=== PATIENT | male | born 1945 | race Caucasian/White ===

== ENCOUNTER 2016-09-13 12:04 | Inpatient (IN) | payer MEDICARE, OTHER ==
[2016-09-13 13:56] VITALS: BMI 25.9
--- NOTE | 2016-09-13 14:38 | HP ---
CIWA Score - CIWA Score Nausea/Vomitin Muscle Tremors: 2 Anxiety: 3 Agitation: 3 Paroxysmal Sweats: 3 Orientation: 0-Oriented Tacttile Disturbances: 2-Mild Itch/Numbness/Burn Auditory Disturbances: 0-None Visual Disturbances: 0-None Headache: 1-Very Mild CIWA-Ar Total Score: 17 Admission ROS BHS - HPI Chief Complaint: I need help to stop using benzos Allergies/Adverse Reactions: Allergies Allergy/AdvReac Type Severity Reaction Status Date / Time penicillin G Allergy Severe Rash Verified 09/13/16 14:12 phenytoin sodium Allergy Mild Verified 09/13/16 14:12 [From Dilantin] phenytoin sodium extended Allergy Mild Verified 09/13/16 14:12 [From Dilantin] History of Present Illness: 71 y/o m pt on MMTP , dependent on benzos seeking detox. Exam Limitations: No Limitations - Ebola screening Have you traveled outside of the country in the last 21 days: No Have you had contact with anyone from an Ebola affected area: No Have you been sick,other than usual withdrawal symptoms: No Do you have a fever: No - Review of Systems Constitutional: Malaise, Changes in sleep, Weakness EENT: reports: Nose Congestion, Dental Problems (edentulous) Respiratory: reports: No Symptoms reported Cardiac: reports: No Symptoms Reported GI: reports: Nausea, Indigestion : reports: No Symptoms Reported Musculoskeletal: reports: Joint Pain (rt knee abrasions), Muscle Weakness Integumentary: reports: No Symptoms Reported Neuro: reports: Seizure Endocrine: reports: No Symptoms Reported Hematology: reports: No Symptoms Reported Psychiatric: reports: Agitated, Anxious, Depressed Other Systems: Reviewed and Negative Patient History - Patient Medical History Hx Anemia: No Hx Asthma: No Hx Chronic Obstructive Pulmonary Disease (COPD): No Hx Cancer: No Hx Cardiac Disorders: No Hx Congestive Heart Failure: No Hx Hypertension: No Hx Hypercholesterolemia: No Hx Pacemaker: No HX Cerebrovascular Accident: No Hx Seizures: Yes (Pt states his last seizure was 2 months ago.) Hx Dementia: No Hx Diabetes: No Hx Gastrointestinal Disorders: No Hx Liver Disease: No Hx Genitourinary Disorders: No Hx Sexually Transmitted Disorders: No Hx Renal Disease (ESRD): No Hx Thyroid Disease: No Hx Human Immunodeficiency Virus (HIV): No (september 2011- negative) Hx Hepatitis C: Yes Hx Depression: Yes Hx Suicide Attempt: Yes (tried to cut himself in 2011) Hx Bipolar Disorder: Yes Hx Schizophrenia: No - Patient Surgical History Past Surgical History: Yes Hx Neurologic Surgery: No Hx Cataract Extraction: No Hx Cardiac Surgery: No Hx Lung Surgery: No Hx Breast Surgery: No Hx Breast Biopsy: No Hx Abdominal Surgery: Yes (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) Hx Appendectomy: No Hx Cholecystectomy: No Hx Genitourinary Surgery: No Hx Section: No Hx Orthopedic Surgery: No Hx Hysterectomy: No Anesthesia Reaction: No - PPD History Previous Implant?: Yes Documented Results: Positive w/proof Implanted On Prior [facility] Admission?: No - Reproductive History Patient is a Female of Child Bearing Age (11 -55 yrs old): No - Smoking Cessation Smoking history: Current every day smoker Have you smoked in the past 12 months: Yes Aproximately how many cigarettes per day: 15 Cigars Per Day: 0 Hx Chewing Tobacco Use: No Initiated information on smoking cessation: Yes 'Breaking Loose' booklet given: 09/13/16 - Substance & Tx. History Hx Alcohol Use: No Hx Substance Use: No Substance Use Type: Tranquilizers Hx Substance Use Treatment: Yes - Substances Abused Benzodiazepine (Klonopin) Route: Oral Frequency: Daily Amount used: 12MG Age of first use: 24 Date of Last Use: 09/13/16 Family Disease History - Family Disease History Family Disease History: Diabetes: Father (heroin dependence ), Other: Father, Mother (alcohol dependence ), Sister (OVERDOSE) Admission Physical Exam BHS - Vital Signs Vital Signs: Vital Signs - 24 hr 09/13/16 13:34 Temperature 97.1 F L Pulse Rate 60 Respiratory 20 Rate Blood Pressure 125/63 - Physical General Appearance: Yes: Disheveled, Irritable, Anxious HEENTM: Yes: EOMI, Hearing grossly Normal, Normocephalic, Normal Voice, JAVIER, Nasal Congestion, Other (deviated septum to left) Respiratory: Yes: Chest Non-Tender, Lungs Clear, Normal Breath Sounds, No Respiratory Distress Neck: Yes: Supple Breast: Yes: Within Normal Limits Cardiology: Yes: Regular Rhythm, Regular Rate, S1, S2 Abdominal: Yes: Non Tender, Flat, Soft, Increased Bowel Sounds, Spleenomegaly ( 2nd to trauma), Surgical Scar (well healed midline sca) Genitourinary: Yes: Within Normal Limits Back: Yes: Decreased Range of Motion Musculoskeletal: Yes: Joint Stiffness, Joint swelling (abrasions rt knee), Other (multiple abrasions rt knee) Extremities: Yes: Within Normal Limits Neurological: Yes: supervisor correspondence section II-XII NML intact, Fully Oriented, Alert, Motor Strength 5/5, Normal Response Integumentary: Yes: Moist, Track Crews (old) Lymphatic: Yes: Within Normal Limits - Diagnostic (1) Sedative, hypnotic or anxiolytic dependence, uncomplicated Current Visit: Yes Status: Chronic Comment: SEIZURE RELATED WITHDRAWAL (2) Frequent falls Current Visit: Yes Status: Chronic Comment: pt fell today on knees has abrasion to rt knee but at present aox3 ambulating . (3) Methadone maintenance therapy patient Current Visit: Yes Status: Chronic Comment: 180 MG VERIFICATION PENDING (4) Nicotine dependence Current Visit: Yes Status: Chronic Qualifiers: Nicotine product type: cigarettes Substance use status: uncomplicated Qualified Code(s): F17.210 - Nicotine dependence, cigarettes, uncomplicated Comment: . (5) Bipolar 1 disorder, depressed Current Visit: Yes Status: Chronic Cleared for Admission [facility] - Detox or Rehab [facility] Level of Care: Medically Managed Detox Regimen/Protocol: Valium [facility] Breath Alcohol Content Breath Alcohol Content: 0 Urine Drug Screen - Results Drug Screen Negative: No Urine Drug Screen Results: BZO-Benzodiazepines, MTD-Methadone, TCA-Tricyclic Antidepress
[2016-09-13] MEDS ORDERED: MENTHOL/PHENOL 1 EACH UD MM PRN (14:55)
[2016-09-13] MEDS ORDERED: ACETAMINOPHEN 325 MG TABLET (FP) PO PRN (14:55)
[2016-09-13] MEDS ORDERED: P-EPHED 60MG/TRIPROLIDI 2.5MG TABLET PO PRN (14:55)
[2016-09-13] MEDS ORDERED: MAG HYDROX/AL HYDROX/SIMETH 30 ML UNIT-DOSE CUP PO PRN (14:55)
[2016-09-13] MEDS ORDERED: LOPERAMIDE HCL 2 MG CAPSULE PO PRN (14:55)
[2016-09-13] MEDS ORDERED: hydrOXYzine PAMOATE 25 MG CAPSULE (FP) PO PRN (14:55)
[2016-09-13] MEDS ORDERED: MAGNESIUM CITRATE 300 ML BOTTLE PO PRN (14:55)
[2016-09-13] MEDS ORDERED: guaiFENesin/D-METHORPHAN HB 10 ML UNIT-DOSE CUPS PO PRN (14:55)
[2016-09-13] MEDS ORDERED: IBUPROFEN 400 MG TABLET (FP) PO PRN (14:55)
[2016-09-13 16:59] LABS: URINE APPEARANCE CLEAR; URINE BILIRUBIN NEGATIVE (NEGATIVE); URINE BLOOD NEGATIVE (NEGATIVE); URINE COLOR YELLOW; URINE GLUCOSE (UA) NEGATIVE (NEGATIVE); URINE KETONE NEGATIVE (NEGATIVE); URINE NITRITE NEGATIVE (NEGATIVE); URINE PROTEIN NEGATIVE (NEGATIVE); URINE UROBILINOGEN 2.0 E.U/dl E.U./dl (0.2-1.0)
[2016-09-13 17:00] LABS: URINE LEUK ESTERASE TRACE (NEGATIVE)
[2016-09-13 17:05] LABS: URINE MUCUS RARE; URINE RBC <1 /hpf (0-3); URINE WBC 4 /hpf (3-5)
[2016-09-13] MEDS ORDERED: diazePAM 5 MG TABLET PO ONE (17:45)
--- NOTE | 2016-09-13 18:20 | CONSULT ---
[facility] Psychiatric Consult - Data Date of interview: 09/13/16 Admission source: [facility] Identifying data: Another admission to [facility] for this 71 y/o [place]-Sy[place] male seeking detox treatment on for opioid and benzodiazepine dependence.Patient is ,a father of four,unemployed,domiciled (lives with a cousin in [place]) and supported on SSI benefits. Substance Abuse History: - Smoking Cessation. Smoking history: Current every day smoker. Have you smoked in the past 12 months: Yes. Aproximately how many cigarettes per day: 15. Cigars Per Day: 0. Hx Chewing Tobacco Use: No. Initiated information on smoking cessation: Yes. 'Breaking Loose' booklet given : 09/13/16. - Substance & Tx. History. Hx Alcohol Use: No. Hx Substance Use: No. Substance Use Type: Tranquilizers. Hx Substance Use Treatment: Yes. - Substances Abused. Benzodiazepine (Klonopin). Route: Oral. Frequency: Daily. Amount used: 12MG. Age of first use: 24. Date of Last Use: 09/13/16. Confirmed by patient. 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 Psychiatric History: Past history of psychiatric hospitalizations.Patient is a disorganized,erratic and unreliable historian.Past history of admissions to [facility] and [facility] (years ago).Diagnosed with Anxiety Disorder.Mr Knapp reports that he has always been on benzodiazepines ( klonopin or xanax).Currently on methadone maintenance at the [facility] clinic in [place] (oayr=395 mg/day).He denies history of suicide attempts. Physical/Sexual Abuse/Trauma History: Patient denies. Additional Comment: Urine Drug Screen Results: BZO-Benzodiazepines, MTD- Methadone, TCA-Tricyclic Antidepressants.Noted. Mental Status Exam - Mental Status Exam Alert and Oriented to: Time, Place, Person Cognitive Function: Grossly Intact Patient Appearance: Unkempt (walking wih a stooped posture), Disheveled Mood: Anxious Affect: Mood Congruent Patient Behavior: Fatigued Speech Pattern: Clear (fairly clear) Voice Loudness: Normal Thought Process: Disorganized Thought Disorder: Not Present Hallucinations: Denies Suicidal Ideation: Denies Homicidal Ideation: Denies Insight/Judgement: Poor Sleep: Poorly, Difficulty falling asleep Appetite: Fair Gait/Station: Other (unsteady gait) Psychiatric Findings - Problem List ([place] 1, 2,3) (1) Sedative, hypnotic or anxiolytic dependence, uncomplicated Current Visit: Yes Status: Acute Comment: SEIZURE RELATED WITHDRAWAL (2) Opioid dependence on agonist therapy Current Visit: Yes Status: Acute (3) Nicotine dependence Current Visit: Yes Status: Acute Qualifiers: Nicotine product type: cigarettes Substance use status: uncomplicated Qualified Code(s): F17.210 - Nicotine dependence, cigarettes, uncomplicated Comment: . (4) Substance induced mood disorder Current Visit: Yes Status: Acute (5) Frequent falls Current Visit: Yes Status: Chronic Comment: pt fell today on knees has abrasion to rt knee but at present aox3 ambulating . (6) Kyphosis deformity of spine Current Visit: Yes Status: Chronic Comment: . (7) Lower extremity neuropathy Current Visit: No Status: Chronic Qualifiers: Laterality: bilateral Qualified Code(s): G57.91 - Unspecified mononeuropathy of right lower limb Comment: . (8) Weight loss Current Visit: Yes Status: Chronic (9) Insomnia Current Visit: Yes Status: Chronic - Initial Treatment Plan Initial Treatment Plan: Psychoeducation.Detoxification in progress.Will hold trazodone for now (history of recent falls).Discussed with the patient.He is in agreement with this careplan.Falls precautions.Observation.
[2016-09-13] MEDS: BACITRACIN 0.9 GM PACKET TP SCH (22:35)
[2016-09-13] MEDS: THIAMINE HCL 100 MG TABLET (FP) PO SCH (22:35)
[2016-09-13] MEDS: diazePAM 5 MG TABLET PO SCH (22:36)
[2016-09-14] MEDS: diazePAM 5 MG TABLET PO PRN (02:06)
[2016-09-14] MEDS: diazePAM 5 MG TABLET PO SCH ×3 (05:50→22:23)
[2016-09-14] MEDS: METHADONE HCL 40 MG DISPERSABLE TABLET PO SCH (07:53)
[2016-09-14] MEDS: PRENATAL VITAMINS W/ FOLIC ACID TABLET (FP) PO SCH (09:48)
[2016-09-14] MEDS: NICOTINE 21 MG/24 HOURS TOPICAL PATCH TD SCH (09:48)
[2016-09-14] MEDS: BACITRACIN 0.9 GM PACKET TP SCH ×2 (09:48→22:23)
[2016-09-14] MEDS: ASPIRIN 81 MG CHEWABLE TABLETS PO SCH (09:48)
[2016-09-14 10:03] LABS: MCH 31.5 pg (25.7-33.7); MCHC 33.2 g/dl (32.0-35.9); MEAN CELL VOLUME 94.8 fl (80-96); MEAN PLT VOLUME 10.2 fl (7.5-11.1); PLATELET COUNT 215 K/MM3 (134-434); RDW 13.9 % (11.9-15.9); WHITE BLOOD COUNT 6.8 K/mm3 (4.0-10.0)
--- NOTE | 2016-09-14 10:33 | PN ---
[facility] CIWA - CIWA Score Nausea/Vomitin-No Nausea/No Vomiting Muscle Tremors: 4-Moderate,w/Arms Extend Anxiety: 4-Mod. Anxious/Guarded Agitation: 4-Moderately Restless Paroxysmal Sweats: 1-Minimal Palms Moist Orientation: 0-Oriented Tacttile Disturbances: 3-Moderate Itch/Numb/Burn Auditory Disturbances: 0-None Visual Disturbances: 0-None Headache: 0-None Present CIWA-Ar Total Score: 16 BHS Progress Note (SOAP) Subjective: ANXIETY SWEATS,SLIGHT TREMORS, INTERMITTENT SLEEP. Objective: 09/14/16 10:32 Vital Signs Temperature 95.2 F L 09/14/16 10:02 Pulse Rate 16 L 09/14/16 10:02 Respiratory Rate 54 H 09/14/16 10:02 Blood Pressure 97/61 09/14/16 10:02 O2 Sat by Pulse Oximetry (%) Laboratory Last Values WBC 6.8 K/mm3 (4.0-10.0) 09/14/16 06:00 RBC 4.22 M/mm3 (4.00-5.60) 09/14/16 06:00 Hgb 13.3 GM/dL (11.7-16.9) 09/14/16 06:00 Hct 40.1 % (35.4-49) 09/14/16 06:00 MCV 94.8 fl (80-96) 09/14/16 06:00 MCHC 33.2 g/dl (32.0-35.9) 09/14/16 06:00 RDW 13.9 % (11.9-15.9) 09/14/16 06:00 Plt Count 215 K/MM3 (134-434) 09/14/16 06:00 MPV 10.2 fl (7.5-11.1) 09/14/16 06:00 Sodium 139 mmol/L (136-145) 09/14/16 06:00 Potassium 4.5 mmol/L (3.5-5.1) 09/14/16 06:00 Chloride 104 mmol/L (98-107) 09/14/16 06:00 Urine Color Yellow 09/13/16 14:00 Urine Appearance Clear 09/13/16 14:00 Urine pH 5.0 (5.0-8.0) 09/13/16 14:00 Ur Specific [place] 1.019 (1.001-1.035) 09/13/16 14:00 Urine Protein Negative (NEGATIVE) 09/13/16 14:00 Urine Glucose (UA) Negative (NEGATIVE) 09/13/16 14:00 Urine Ketones Negative (NEGATIVE) 09/13/16 14:00 Urine Blood Negative (NEGATIVE) 09/13/16 14:00 Urine Nitrite Negative (NEGATIVE) 09/13/16 14:00 Urine Bilirubin Negative (NEGATIVE) 09/13/16 14:00 Urine Urobilinogen 2.0 e.u/dl E.U./dl (0.2-1.0) 09/13/16 14:00 Ur Leukocyte Esterase Trace (NEGATIVE) H 09/13/16 14:00 Urine RBC <1 /hpf (0-3) 09/13/16 14:00 Urine WBC 4 /hpf (3-5) 09/13/16 14:00 Ur Epithelial Cells Rare /hpf (FEW) 09/13/16 14:00 Urine Mucus Rare 09/13/16 14:00 LABS/UA NOTED Assessment: 09/14/16 10:32 WITHDRAWAL SX Plan: CONTINUE DETOX REPEAT UA
[2016-09-14 10:42] LABS: ALBUMIN 4.2 g/dl (3.4-5.0); BILIRUBIN,TOTAL 0.6 mg/dL (0.2-1.0); CALCIUM 11.3 mg/dL (8.5-10.1); COCKROFT - GAULT 53.06; CREATININE 1.4 mg/dL (0.7-1.3); TOT PROT 7.5 g/dl (6.4-8.2)
--- NOTE | 2016-09-14 10:44 | PN ---
[facility] Progress Note Note: PT TRIPPED/FELL ON HIS HANDS AND KNEES BY THE [facility] ENTRANCE DO0R YESTERDAY IN AN ATTEMPT TO WALK THROUGH. NO LOC. ALERT O X 3. PT WAS HELPED UP BY [facility] STAFF THIS UTILITY HAND, NURSES LEFTY MILIAN AND CUATE CACERES. PT STATES HAS HX OF SCOLIOSIS/BACK PROBLEM AND THAT CAUSING UNSTABLE GAIT FOR HIM. PT DENIED ANY UNUSUAL DISCOMFORT FROM FALL STATING "I'M FINE, I HAVE THIS SCOLIOSIS ON MY BACK". PT AMBULATES WITH A HUNCH AND USUALLY WITH UNSTEADY GAIT. EXAM: NO REDNESS/SWELLINGS/ECHYMOSIS NOTED ON HANDS/UPPER EXTREMITIES, CHEST OR ABDOMEN. THREE POINT SUPERFICIAL ABRASION WITH NO BLEEDING NOTED ON RIGHT KNEE. NONE NOTED ON LEFT KNEE. PLAN:BACITRACIN OINTMENT DIRECTED PROTOCOL #2 WHEELCHAIR AMBULATORY AID TYLENOL/MOTRIN DIRECTED
[2016-09-14] MEDS: THIAMINE HCL 100 MG TABLET (FP) PO SCH (22:23)
--- NOTE | 2016-09-14 23:08 | EKG ---
Test Reason : Blood Pressure : / mmHG Vent. Rate : 052 BPM Atrial Rate : 052 BPM P-R Int : 184 ms QRS Dur : 106 ms QT Int : 428 ms P-R-T Axes : 022 -13 035 degrees QTc Int : 398 ms SINUS BRADYCARDIA NONSPECIFIC ST ABNORMALITY ABNORMAL ECG NO PREVIOUS ECGS AVAILABLE Confirmed by VIRGEN ESQUIVEL MD ([id number]) on 09/14/2016 11:07:57 PM Referred By: Confirmed By:VIRGEN ESQUIVEL MD
[2016-09-15] MEDS: METHADONE HCL 40 MG DISPERSABLE TABLET PO SCH (05:46)
[2016-09-15] MEDS: diazePAM 5 MG TABLET PO PRN (05:46)
[2016-09-15] MEDS: PRENATAL VITAMINS W/ FOLIC ACID TABLET (FP) PO SCH (10:40)
[2016-09-15] MEDS: diazePAM 5 MG TABLET PO SCH ×2 (10:40→22:46)
[2016-09-15] MEDS: BACITRACIN 0.9 GM PACKET TP SCH ×2 (10:40→22:46)
[2016-09-15] MEDS: ASPIRIN 81 MG CHEWABLE TABLETS PO SCH (10:40)
[2016-09-15] MEDS: NICOTINE 21 MG/24 HOURS TOPICAL PATCH TD SCH (10:40)
--- NOTE | 2016-09-15 11:01 | PN ---
[facility] CIWA - CIWA Score Nausea/Vomitin-No Nausea/No Vomiting Muscle Tremors: 4-Moderate,w/Arms Extend Anxiety: 4-Mod. Anxious/Guarded Agitation: 4-Moderately Restless Paroxysmal Sweats: 1-Minimal Palms Moist Orientation: 0-Oriented Tacttile Disturbances: 3-Moderate Itch/Numb/Burn Auditory Disturbances: 0-None Visual Disturbances: 0-None Headache: 0-None Present CIWA-Ar Total Score: 16 BHS Progress Note (SOAP) Subjective: SLIGHT TREMORS,ANXIETY,SEEN ON ROUNDS AT NURSING STATION OOB IN NO ACUTE DISTRESS. Objective: 09/15/16 11:00 Vital Signs Temperature 96.5 F L 09/15/16 09:30 Pulse Rate 62 09/15/16 09:30 Respiratory Rate 18 09/15/16 09:30 Blood Pressure 113/72 09/15/16 09:30 O2 Sat by Pulse Oximetry (%) Laboratory Last Values WBC 6.8 K/mm3 (4.0-10.0) 09/14/16 06:00 RBC 4.22 M/mm3 (4.00-5.60) 09/14/16 06:00 Hgb 13.3 GM/dL (11.7-16.9) 09/14/16 06:00 Hct 40.1 % (35.4-49) 09/14/16 06:00 MCV 94.8 fl (80-96) 09/14/16 06:00 MCHC 33.2 g/dl (32.0-35.9) 09/14/16 06:00 RDW 13.9 % (11.9-15.9) 09/14/16 06:00 Plt Count 215 K/MM3 (134-434) 09/14/16 06:00 MPV 10.2 fl (7.5-11.1) 09/14/16 06:00 Sodium 139 mmol/L (136-145) 09/14/16 06:00 Potassium 4.5 mmol/L (3.5-5.1) 09/14/16 06:00 Chloride 104 mmol/L (98-107) 09/14/16 06:00 Carbon Dioxide 25 mmol/L (21-32) 09/14/16 06:00 Anion Gap 10 (8-16) 09/14/16 06:00 BUN 15 mg/dL (7-18) D 09/14/16 06:00 Creatinine 1.4 mg/dL (0.7-1.3) H 09/14/16 06:00 Creat Clearance w eGFR 49.68 (>60) 09/14/16 06:00 Random Glucose 92 mg/dL (74-106) 09/14/16 06:00 Calcium 11.3 mg/dL (8.5-10.1) H 09/14/16 06:00 Total Bilirubin 0.6 mg/dL (0.2-1.0) D 09/14/16 06:00 AST 27 U/L (15-37) D 09/14/16 06:00 ALT 26 U/L (12-78) D 09/14/16 06:00 Alkaline Phosphatase 150 U/L (45-117) H 09/14/16 06:00 Total Protein 7.5 g/dl (6.4-8.2) 09/14/16 06:00 Albumin 4.2 g/dl (3.4-5.0) 09/14/16 06:00 Urine Color Yellow 09/13/16 14:00 Urine Appearance Clear 09/13/16 14:00 Urine pH 5.0 (5.0-8.0) 09/13/16 14:00 Ur Specific [place] 1.019 (1.001-1.035) 09/13/16 14:00 Urine Protein Negative (NEGATIVE) 09/13/16 14:00 Urine Glucose (UA) Negative (NEGATIVE) 09/13/16 14:00 Urine Ketones Negative (NEGATIVE) 09/13/16 14:00 Urine Blood Negative (NEGATIVE) 09/13/16 14:00 Urine Nitrite Negative (NEGATIVE) 09/13/16 14:00 Urine Bilirubin Negative (NEGATIVE) 09/13/16 14:00 Urine Urobilinogen 2.0 e.u/dl E.U./dl (0.2-1.0) 09/13/16 14:00 Ur Leukocyte Esterase Trace (NEGATIVE) H 09/13/16 14:00 Urine RBC <1 /hpf (0-3) 09/13/16 14:00 Urine WBC 4 /hpf (3-5) 09/13/16 14:00 Ur Epithelial Cells Rare /hpf (FEW) 09/13/16 14:00 Urine Mucus Rare 09/13/16 14:00 RPR Titer Nonreactive (NONREACTIVE) 09/14/16 06:00 REPEAT UA PENDING Assessment: 09/15/16 11:00 WITHDRAWAL SX Plan: CONTINUE DETOX
[2016-09-15 16:28] LABS: URINE APPEARANCE CLEAR; URINE BILIRUBIN NEGATIVE (NEGATIVE); URINE BLOOD NEGATIVE (NEGATIVE); URINE COLOR YELLOW; URINE GLUCOSE (UA) NEGATIVE (NEGATIVE); URINE KETONE NEGATIVE (NEGATIVE); URINE NITRITE NEGATIVE (NEGATIVE); URINE PROTEIN NEGATIVE (NEGATIVE); URINE UROBILINOGEN NEGATIVE E.U./dl (0.2-1.0)
[2016-09-15 16:48] LABS: URINE LEUK ESTERASE TRACE (NEGATIVE)
[2016-09-15 17:09] LABS: URINE RBC <1 /hpf (0-3); URINE WBC 2 /hpf (3-5)
[2016-09-15] MEDS: THIAMINE HCL 100 MG TABLET (FP) PO SCH (22:46)
[2016-09-16] MEDS: diazePAM 5 MG TABLET PO PRN (05:39)
[2016-09-16] MEDS: METHADONE HCL 40 MG DISPERSABLE TABLET PO SCH (05:39)
[2016-09-16] MEDS: NICOTINE 21 MG/24 HOURS TOPICAL PATCH TD SCH (10:33)
[2016-09-16] MEDS: diazePAM 5 MG TABLET PO SCH ×2 (10:33→22:52)
[2016-09-16] MEDS: BACITRACIN 0.9 GM PACKET TP SCH ×2 (10:33→22:51)
[2016-09-16] MEDS: PRENATAL VITAMINS W/ FOLIC ACID TABLET (FP) PO SCH (10:33)
[2016-09-16] MEDS: ASPIRIN 81 MG CHEWABLE TABLETS PO SCH (10:33)
--- NOTE | 2016-09-16 11:55 | PN ---
[facility] Progress Note (SOAP) Subjective: OOB AMBULATING ON HALLWAY WITH STEADY GAIT. PT HAS A SLIGHT HUNCH . STATES "I DON'T NEED THE WHEELCHAIR, I'M FINE". DECREASED ANXIETY,TREMORS. Objective: 09/16/16 11:54 Vital Signs Temperature 95.6 F L 09/16/16 09:32 Pulse Rate 51 L 09/16/16 09:32 Respiratory Rate 18 09/16/16 09:32 Blood Pressure 105/63 09/16/16 09:32 O2 Sat by Pulse Oximetry (%) Assessment: 09/16/16 11:55 WITHDRAWAL SX Plan: CONTINUE DETOX MAINTAIN SAFETY
[2016-09-16] MEDS: MAGNESIUM HYDROX 2400MG/30ML ORAL SUSPENSION 30 ML CUP PO PRN (22:52)
[2016-09-16] MEDS: THIAMINE HCL 100 MG TABLET (FP) PO SCH (22:52)
[2016-09-17] MEDS: METHADONE HCL 40 MG DISPERSABLE TABLET PO SCH (05:45)
[2016-09-17] MEDS ORDERED: diazePAM 5 MG TABLET PO SCH (10:00)
--- NOTE | 2016-09-17 10:34 | DS ---
[facility] Detox Discharge Summary Admission Date: 09/13/16 Discharge Date: 09/17/16 - History Present History: Sedative Dependence, MMTP Pertinent Past History: Hep C S/P splenectomy - Physical Exam Results Vital Signs: Vital Signs Temperature 97.8 F 09/17/16 06:47 Pulse Rate 52 L 09/17/16 06:47 Respiratory Rate 16 09/17/16 06:47 Blood Pressure 124/81 09/17/16 06:47 O2 Sat by Pulse Oximetry (%) Pertinent Admission Physical Exam Findings: Withdrawal sx. Laboratory Last Values WBC 6.8 K/mm3 (4.0-10.0) 09/14/16 06:00 RBC 4.22 M/mm3 (4.00-5.60) 09/14/16 06:00 Hgb 13.3 GM/dL (11.7-16.9) 09/14/16 06:00 Hct 40.1 % (35.4-49) 09/14/16 06:00 MCV 94.8 fl (80-96) 09/14/16 06:00 MCHC 33.2 g/dl (32.0-35.9) 09/14/16 06:00 RDW 13.9 % (11.9-15.9) 09/14/16 06:00 Plt Count 215 K/MM3 (134-434) 09/14/16 06:00 MPV 10.2 fl (7.5-11.1) 09/14/16 06:00 Sodium 139 mmol/L (136-145) 09/14/16 06:00 Potassium 4.5 mmol/L (3.5-5.1) 09/14/16 06:00 Chloride 104 mmol/L (98-107) 09/14/16 06:00 Carbon Dioxide 25 mmol/L (21-32) 09/14/16 06:00 Anion Gap 10 (8-16) 09/14/16 06:00 BUN 15 mg/dL (7-18) D 09/14/16 06:00 Creatinine 1.4 mg/dL (0.7-1.3) H 09/14/16 06:00 Creat Clearance w eGFR 49.68 (>60) 09/14/16 06:00 Random Glucose 92 mg/dL (74-106) 09/14/16 06:00 Calcium 11.3 mg/dL (8.5-10.1) H 09/14/16 06:00 Total Bilirubin 0.6 mg/dL (0.2-1.0) D 09/14/16 06:00 AST 27 U/L (15-37) D 09/14/16 06:00 ALT 26 U/L (12-78) D 09/14/16 06:00 Alkaline Phosphatase 150 U/L (45-117) H 09/14/16 06:00 Total Protein 7.5 g/dl (6.4-8.2) 09/14/16 06:00 Albumin 4.2 g/dl (3.4-5.0) 09/14/16 06:00 Urine Color Yellow 09/15/16 13:40 Urine Appearance Clear 09/15/16 13:40 Urine pH 5.0 (5.0-8.0) 09/15/16 13:40 Ur Specific [place] 1.015 (1.001-1.035) 09/15/16 13:40 Urine Protein Negative (NEGATIVE) 09/15/16 13:40 Urine Glucose (UA) Negative (NEGATIVE) 09/15/16 13:40 Urine Ketones Negative (NEGATIVE) 09/15/16 13:40 Urine Blood Negative (NEGATIVE) 09/15/16 13:40 Urine Nitrite Negative (NEGATIVE) 09/15/16 13:40 Urine Bilirubin Negative (NEGATIVE) 09/15/16 13:40 Urine Urobilinogen Negative E.U./dl (0.2-1.0) 09/15/16 13:40 Ur Leukocyte Esterase Trace (NEGATIVE) H 09/15/16 13:40 Urine RBC <1 /hpf (0-3) 09/15/16 13:40 Urine WBC 2 /hpf (3-5) 09/15/16 13:40 Ur Epithelial Cells Rare /hpf (FEW) 09/15/16 13:40 Urine Mucus Rare 09/13/16 14:00 RPR Titer Nonreactive (NONREACTIVE) 09/14/16 06:00 labs noted - Treatment Hospital Course: Detox Protocol Followed, Detoxed Safely, Responded well, Discharged Condition Good, Rehab Referral Accepted Patient has Accepted a Rehab Referral to: [facility] - Medication Discharge Medications: Ambulatory Orders Aspirin [ASA -] 81 mg PO DAILY #30 tab.chew 05/03/16 Trazodone HCl [Desyrel -] 75 mg PO HS 09/13/16 - Diagnosis (1) Nicotine dependence Current Visit: Yes Status: Acute Qualifiers: Nicotine product type: cigarettes Substance use status: uncomplicated Qualified Code(s): F17.210 - Nicotine dependence, cigarettes, uncomplicated (2) Opioid dependence on agonist therapy Current Visit: Yes Status: Acute (3) Sedative, hypnotic or anxiolytic dependence, uncomplicated Current Visit: Yes Status: Acute (4) Substance induced mood disorder Current Visit: Yes Status: Acute (5) Frequent falls Current Visit: Yes Status: Chronic (6) Insomnia Current Visit: Yes Status: Chronic (7) Kyphosis deformity of spine Current Visit: Yes Status: Chronic - AMA Did Patient Leave Against Medical Advice: No
[2016-09-17] MEDS: BACITRACIN 0.9 GM PACKET TP SCH ×3 (10:45→21:21)
[2016-09-17] MEDS: ASPIRIN 81 MG CHEWABLE TABLETS PO SCH (10:45)
[2016-09-17] MEDS: NICOTINE 21 MG/24 HOURS TOPICAL PATCH TD SCH (10:45)
[2016-09-17] MEDS: PRENATAL VITAMINS W/ FOLIC ACID TABLET (FP) PO SCH (10:45)
--- NOTE | 2016-09-17 13:32 | HP ---
[facility] Re[facility] Assess/Revision - Admission History Admitted to Rehab from: [facility] Date of Admission to Rehab: 09/17/16 - Vital signs Vital Signs: Vital Signs Period Temp Pulse Resp BP Sys/Augustin Pulse Ox Last 24 Hr 96.0 F-97.8 F 52-60 16-20 101-134/64-81 - Findings Detox History & Physical reviewed: Yes Concur with findings: Yes
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
[2016-09-17] MEDS: traZODone HCL 50 MG TABLET (FP) PO SCH (21:20)
[2016-09-17] MEDS: THIAMINE HCL 100 MG TABLET (FP) PO SCH (21:20)
[2016-09-18] MEDS: METHADONE HCL 40 MG DISPERSABLE TABLET PO SCH ×2 (06:30→06:31)
[2016-09-18] MEDS: PRENATAL VITAMINS W/ FOLIC ACID TABLET (FP) PO SCH (10:23)
[2016-09-18] MEDS: BACITRACIN 0.9 GM PACKET TP SCH ×2 (10:23→21:01)
[2016-09-18] MEDS: NICOTINE 21 MG/24 HOURS TOPICAL PATCH TD SCH (10:23)
[2016-09-18] MEDS: ASPIRIN 81 MG CHEWABLE TABLETS PO SCH (10:23)
[2016-09-18] MEDS: MAGNESIUM HYDROX 2400MG/30ML ORAL SUSPENSION 30 ML CUP PO PRN (10:24)
--- NOTE | 2016-09-18 20:51 | PN ---
[facility] Progress Note Note: S-ASKED TO SEE PT FOR FEVER. GIVEN MOTRIN W/O RELIEF. PT C/O CONSTIPATION X2 WEEKS, CHILLS, AND THIRST. AND WEAKNESS. DENIES, SOB, COUGH, C.P., N/V/D, SORE THROAT. O- Vital Signs - 24 hr 09/18/16 09/18/16 09/18/16 00:30 03:30 07:32 Temperature 97.5 F L Pulse Rate 62 Respiratory 18 16 16 Rate Blood Pressure 128/79 09/18/16 09/18/16 17:34 18:41 Temperature 101.3 F H 101.2 F H Pulse Rate Respiratory Rate Blood Pressure Laboratory Tests 09/13/16 09/14/16 09/14/16 14:00 06:00 06:00 WBC 6.8 RBC 4.22 Hgb 13.3 Hct 40.1 MCV 94.8 MCHC 33.2 RDW 13.9 Plt Count 215 MPV 10.2 Sodium 139 Potassium 4.5 Chloride 104 Carbon Dioxide 25 Anion Gap 10 BUN 15 D Creatinine 1.4 H Creat Clearance w eGFR 49.68 Random Glucose 92 Calcium 11.3 H Total Bilirubin 0.6 D AST 27 D ALT 26 D Alkaline Phosphatase 150 H Total Protein 7.5 Albumin 4.2 Urine Color Yellow Urine Appearance Clear Urine pH 5.0 Ur Specific [place] 1.019 Urine Protein Negative Urine Glucose (UA) Negative Urine Ketones Negative Urine Blood Negative Urine Nitrite Negative Urine Bilirubin Negative Urine Urobilinogen 2.0 e.u/dl Ur Leukocyte Esterase Trace H Urine RBC <1 Urine WBC 4 Ur Epithelial Cells Rare Urine Mucus Rare RPR Titer 09/14/16 09/15/16 06:00 13:40 WBC RBC Hgb Hct MCV MCHC RDW Plt Count MPV Sodium Potassium Chloride Carbon Dioxide Anion Gap BUN Creatinine Creat Clearance w eGFR Random Glucose Calcium Total Bilirubin AST ALT Alkaline Phosphatase Total Protein Albumin Urine Color Yellow Urine Appearance Clear Urine pH 5.0 Ur Specific [place] 1.015 Urine Protein Negative Urine Glucose (UA) Negative Urine Ketones Negative Urine Blood Negative Urine Nitrite Negative Urine Bilirubin Negative Urine Urobilinogen Negative Ur Leukocyte Esterase Trace H Urine RBC <1 Urine WBC 2 Ur Epithelial Cells Rare Urine Mucus RPR Titer Nonreactive REPEAT TEMP 99.7 LABS NOTED. EDERLY OLD MALE OBSERVED LYING IN BED. APPEARS WEAK. H/O SPLENECTOMY, SEIZURE AND HEPC HEENT: NCAT, MMM, EOMI, PEERLA, SKIN:WARM TO TOUCH NECK NO LAD CV RRR LUNGS CTAB ABD: +BS X4 SOFT NT, ND A- FEVER, CONSTIPATION P- PO HYDRATION... PITCHER AT BESIDE COLACE 300 MG PO QHS MAG CITRATE X 1 DOSE NOW TYLENOL/ MOTRIN IF FEVER CONT WILL TRANSFER TO ER FOR EVAL CONT TO MONITOR FOR BM AND FEVER CBC, CMP IN AM
[2016-09-18] MEDS: traZODone HCL 50 MG TABLET (FP) PO SCH (21:01)
[2016-09-18] MEDS: DOCUSATE SODIUM 100 MG CAPSULE (FP) PO SCH (21:01)
[2016-09-18] MEDS: THIAMINE HCL 100 MG TABLET (FP) PO SCH (21:01)
[2016-09-19] MEDS: METHADONE HCL 40 MG DISPERSABLE TABLET PO SCH ×2 (06:34)
--- NOTE | 2016-09-19 07:02 | PN ---
[facility] Progress Note Note: SEEN FOR REEVAL AFEBRILE OVER NIGHT STILL NO BM. GIVE MOM ORDERED Vital Signs - 8 hr 09/19/16 09/19/16 09/19/16 00:30 00:32 03:30 Temperature 98.0 F Respiratory 16 16 Rate VS NOW 96.7 53 16 139/71
[2016-09-19] MEDS: MAGNESIUM HYDROX 2400MG/30ML ORAL SUSPENSION 30 ML CUP PO PRN (07:16)
[2016-09-19] MEDS ORDERED: SODIUM PHOSPHATE/NA BIPHOS 133 ML ENEMA PR ONE (08:35)
[2016-09-19 09:55] LABS: MCHC 32.3 g/dl (32.0-35.9); MEAN PLT VOLUME 10.3 fl (7.5-11.1); PLATELET COUNT 208 K/MM3 (134-434); RDW 14.4 % (11.9-15.9); WHITE BLOOD COUNT 12.5 K/mm3 (4.0-10.0)
[2016-09-19] MEDS: ASPIRIN 81 MG CHEWABLE TABLETS PO SCH (10:11)
[2016-09-19] MEDS: NICOTINE 21 MG/24 HOURS TOPICAL PATCH TD SCH (10:12)
[2016-09-19] MEDS: BACITRACIN 0.9 GM PACKET TP SCH ×2 (10:12→21:13)
[2016-09-19] MEDS: PRENATAL VITAMINS W/ FOLIC ACID TABLET (FP) PO SCH (10:12)
[2016-09-19 10:27] LABS: ALK PHOS 177 U/L (45-117); ANION GAP 9 (8-16); BILIRUBIN,TOTAL 0.9 mg/dL (0.2-1.0); CO2 26 mmol/L (21-32); COCKROFT - GAULT 67.53; CREATININE 1.1 mg/dL (0.7-1.3); GLUCOSE,RANDOM 104 mg/dL (74-106); SGPT/ALT 28 U/L (12-78); TOT PROT 7.8 g/dl (6.4-8.2)
[2016-09-19 10:32] LABS: SGOT/AST 32 U/L (15-37)
--- NOTE | 2016-09-19 12:09 | PN ---
[facility] Progress Note Note: Pt. had copious bowel movement following fleet's enema.Afebrile today but wbc 12 ,500. Vital Signs - 8 hr 09/19/16 09/19/16 07:20 10:38 Temperature 96.7 F L 97.1 F L Pulse Rate 53 L 60 Respiratory 20 16 Rate Blood Pressure 139/71 128/65 Laboratory Results - last 24 hr 09/19/16 09/19/16 08:00 08:00 WBC 12.5 H D RBC 4.83 Hgb 15.0 D Hct 46.3 D MCV 96.0 MCHC 32.3 RDW 14.4 Plt Count 208 MPV 10.3 Sodium 138 Potassium 4.6 Chloride 103 Carbon Dioxide 26 Anion Gap 9 BUN 21 H D Creatinine 1.1 D Creat Clearance w eGFR > 60 Random Glucose 104 Calcium 11.0 H Total Bilirubin 0.9 D AST 32 ALT 28 Alkaline Phosphatase 177 H Total Protein 7.8 Albumin 4.0 Urine Test Results Urine Color Yellow 09/15/16 13:40 Urine Appearance Clear 09/15/16 13:40 Urine pH 5.0 (5.0-8.0) 09/15/16 13:40 Ur Specific [place] 1.015 (1.001-1.035) 09/15/16 13:40 Urine Protein Negative (NEGATIVE) 09/15/16 13:40 Urine Glucose (UA) Negative (NEGATIVE) 09/15/16 13:40 Urine Ketones Negative (NEGATIVE) 09/15/16 13:40 Urine Blood Negative (NEGATIVE) 09/15/16 13:40 Urine Nitrite Negative (NEGATIVE) 09/15/16 13:40 Urine Bilirubin Negative (NEGATIVE) 09/15/16 13:40 Ur Leukocyte Esterase Trace (NEGATIVE) H 09/15/16 13:40 Urine RBC <1 /hpf (0-3) 09/15/16 13:40 Urine WBC 2 /hpf (3-5) 09/15/16 13:40 Ur Epithelial Cells Rare /hpf (FEW) 09/15/16 13:40 Urine Mucus Rare 09/13/16 14:00 labs noted P : U/C&S Levaquin 500mg po daily
[2016-09-19] MEDS: LEVOFLOXACIN 500 MG TABLET (FP) PO SCH (15:31)
[2016-09-19] MEDS: THIAMINE HCL 100 MG TABLET (FP) PO SCH (21:12)
[2016-09-19] MEDS: traZODone HCL 50 MG TABLET (FP) PO SCH (21:12)
[2016-09-19] MEDS: diphenhydrAMINE HCL 50 MG CAPSULE PO PRN (21:13)
[2016-09-19] MEDS: DOCUSATE SODIUM 100 MG CAPSULE (FP) PO SCH (21:13)
[2016-09-20] MEDS: METHADONE HCL 40 MG DISPERSABLE TABLET PO SCH (06:25)
[2016-09-20] MEDS: LEVOFLOXACIN 500 MG TABLET (FP) PO SCH (10:43)
[2016-09-20] MEDS: ASPIRIN 81 MG CHEWABLE TABLETS PO SCH (10:43)
[2016-09-20] MEDS: BACITRACIN 0.9 GM PACKET TP SCH ×2 (10:43→21:08)
[2016-09-20] MEDS: NICOTINE 21 MG/24 HOURS TOPICAL PATCH TD SCH (10:43)
[2016-09-20] MEDS: PRENATAL VITAMINS W/ FOLIC ACID TABLET (FP) PO SCH (10:43)
[2016-09-20] MEDS: THIAMINE HCL 100 MG TABLET (FP) PO SCH (21:09)
[2016-09-20] MEDS: DOCUSATE SODIUM 100 MG CAPSULE (FP) PO SCH (21:09)
[2016-09-20] MEDS: traZODone HCL 50 MG TABLET (FP) PO SCH (21:11)
[2016-09-20] MEDS: diphenhydrAMINE HCL 50 MG CAPSULE PO PRN (21:12)
[2016-09-21] MEDS: METHADONE HCL 40 MG DISPERSABLE TABLET PO SCH (06:26)
[2016-09-21] MEDS: ASPIRIN 81 MG CHEWABLE TABLETS PO SCH (10:44)
[2016-09-21] MEDS: NICOTINE 21 MG/24 HOURS TOPICAL PATCH TD SCH (10:44)
[2016-09-21] MEDS: BACITRACIN 0.9 GM PACKET TP SCH ×2 (10:44→23:48)
[2016-09-21] MEDS: PRENATAL VITAMINS W/ FOLIC ACID TABLET (FP) PO SCH (10:44)
[2016-09-21] MEDS: LEVOFLOXACIN 500 MG TABLET (FP) PO SCH (10:44)
[2016-09-21] MEDS: LACTULOSE 20 GM/30 ML UDC (FOR ORAL USE ONLY) PO PRN (15:00)
[2016-09-21] MEDS: traZODone HCL 50 MG TABLET (FP) PO SCH (21:04)
[2016-09-21] MEDS: THIAMINE HCL 100 MG TABLET (FP) PO SCH (21:04)
[2016-09-21] MEDS: DOCUSATE SODIUM 100 MG CAPSULE (FP) PO SCH (21:05)
[2016-09-21] MEDS: diphenhydrAMINE HCL 50 MG CAPSULE PO PRN (21:05)
[2016-09-22] MEDS: NICOTINE POLACRILEX 4 MG GUM BUC PRN ×2 (05:54→10:06)
[2016-09-22] MEDS: METHADONE HCL 40 MG DISPERSABLE TABLET PO SCH (05:54)
[2016-09-22] MEDS: BACITRACIN 0.9 GM PACKET TP SCH ×2 (10:05→22:12)
[2016-09-22] MEDS: ASPIRIN 81 MG CHEWABLE TABLETS PO SCH (10:05)
[2016-09-22] MEDS: LEVOFLOXACIN 500 MG TABLET (FP) PO SCH (10:05)
[2016-09-22] MEDS: PRENATAL VITAMINS W/ FOLIC ACID TABLET (FP) PO SCH (10:06)
[2016-09-22] MEDS: NICOTINE 21 MG/24 HOURS TOPICAL PATCH TD SCH (10:06)
[2016-09-22] MEDS: LACTULOSE 20 GM/30 ML UDC (FOR ORAL USE ONLY) PO PRN (10:07)
--- NOTE | 2016-09-22 11:59 | PN ---
Psychiatric Progress Note Vital Signs: Vital Signs Period Temp Pulse Resp BP Sys/Augustin Pulse Ox Last 24 Hr 96.2 F 62 18-18 147/81 Date of Session: 09/22/16 Chief Complaint:: " I'm having problem with my mouth, my gum" HPI: Patient adressing Sedative Dependence comorbid with Opoid Dependence on Agonost Therapy and Substance-induce Anxiety Disorder ROS: Kyphosis, Neuropathy, Hep C Current Medications: Active Medications Generic Name Dose Route Start Last Admin Trade Name Freq PRN Reason Stop Dose Admin Al Hydroxide/Mg Hydroxide 30 ml 09/13/16 14:55 Mylanta Oral Suspension - PO Q6H PRN DYSPEPSIA Aspirin 81 mg 09/14/16 10:00 09/22/16 10:05 Asa - PO 81 mg DAILY HEATHER Administration Bacitracin 0.9 gm 09/13/16 22:00 09/22/16 10:05 Bacitracin - TP 0.9 gm BID HEATHER Administration Diphenhydramine HCl 50 mg 09/13/16 14:55 09/21/16 21:05 Benadryl - PO 50 mg HSMR1 PRN Administration INSOMNIA Docusate Sodium 300 mg 09/18/16 22:00 09/21/16 21:05 Colace - PO 300 mg HS HEATHER Administration Eucalyptus/Menthol/Phenol/Sorbitol 1 each 09/13/16 14:55 Cepastat Lozenge - MM Q4H PRN SORE THROAT Guaifenesin 10 ml 09/13/16 14:55 Robitussin Dm - PO Q6H PRN COUGH Hydroxyzine Pamoate 25 mg 09/13/16 14:55 Vistaril - PO Q4H PRN AGITATION Ibuprofen 400 mg 09/13/16 14:55 09/18/16 17:35 Motrin - PO 400 mg Q6H PRN Administration SEVERE PAIN Lactulose 20 gm 09/21/16 12:38 09/22/16 10:07 Cephulac (Oral Use) PO 20 gm TID PRN Administration CONSTIPATION Levofloxacin 500 mg 09/19/16 12:15 09/22/16 10:05 Levaquin - PO 500 mg DAILY HEATHER Administration Loperamide HCl 4 mg 09/13/16 14:55 Imodium - PO Q6H PRN DIARRHEA Magnesium Citrate 300 ml 09/13/16 14:55 09/18/16 20:58 Citroma - PO 300 ml Q48H PRN Administration CONSTIPATION Magnesium Hydroxide 30 ml 09/13/16 14:55 09/19/16 07:16 Milk Of Magnesia - PO 30 ml DAILY PRN Administration CONSTIPATION Methadone HCl 160 mg 09/18/16 06:00 09/22/16 05:54 Dolophine - PO 09/24/16 05:59 160 mg DAILY@0600 HEATHER Administration Nicotine 21 mg 09/14/16 10:00 09/22/16 10:06 Nicoderm Patch - TD Not Given DAILY HEATHER Nicotine Polacrilex 4 mg 09/21/16 06:53 09/22/16 10:06 Nicorette Gum - BUC 4 mg Q2H PRN Administration NICOTINE REPLACEMENT RX Multivit/Folic Acid/Iron 1 tab 09/14/16 10:00 09/22/16 10:06 Vitamins (Sjr) - PO 1 tab DAILY HEATHER Administration Pseudoephedrine/Triprolidine 1 combo 09/13/16 14:55 Actifed - PO TID PRN NASAL CONGESTION Thiamine HCl 100 mg 09/13/16 22:00 09/21/16 21:04 Vitamin B1 - PO 100 mg HS HEATHER Administration Trazodone HCl 50 mg 09/22/16 22:00 Desyrel - PO HS HEATHER Current Side Effect: Yes (dry mouth & gum) Lab tests ordered: Yes Lab tests reviewed: Yes Provider note:: Reports that his mouth and gum have been dry because of Trazadone. Requests to have Trazadone decrease to 50 mg. Total face to face time:: 25 Mental Status Exam - Mental Status Exam Alert and Oriented to: Time, Place, Person Cognitive Function: Fair Patient Appearance: Well Groomed Mood: Hopeful, Euthymic Affect: Appropriate Patient Behavior: Cooperative Speech Pattern: Clear Voice Loudness: Normal Thought Process: Intact Thought Disorder: Not Present Hallucinations: Denies Suicidal Ideation: Denies Homicidal Ideation: Denies Insight/Judgement: Fair Sleep: Fair Appetite: Good Muscle strength/Tone: Normal Gait/Station: Normal Psychiatric Treatment Plan - Problem List (1) Sedative, hypnotic or anxiolytic dependence, uncomplicated Current Visit: Yes Comment: SEIZURE RELATED WITHDRAWAL (2) Opioid dependence on agonist therapy Current Visit: Yes (3) Nicotine dependence Current Visit: Yes Qualifiers: Nicotine product type: cigarettes Substance use status: uncomplicated Qualified Code(s): F17.210 - Nicotine dependence, cigarettes, uncomplicated Comment: . (4) Substance-induced anxiety disorder Current Visit: Yes (5) Kyphosis deformity of spine Current Visit: Yes Comment: . (6) Lower extremity neuropathy Current Visit: No Qualifiers: Laterality: bilateral Qualified Code(s): G57.93 - Unspecified mononeuropathy of bilateral lower limbs Comment: . (7) Hepatitis C Current Visit: Yes Initial treatment plan: 1) Discontinue Trazadone 75 mg po HS. 2) Start Trazadone 50 mg po HS. 3) Monitor progress
[2016-09-22] MEDS: DOCUSATE SODIUM 100 MG CAPSULE (FP) PO SCH (21:01)
[2016-09-22] MEDS: traZODone HCL 50 MG TABLET (FP) PO SCH (21:01)
[2016-09-22] MEDS: THIAMINE HCL 100 MG TABLET (FP) PO SCH (21:02)
[2016-09-23] MEDS: METHADONE HCL 40 MG DISPERSABLE TABLET PO SCH (06:37)
[2016-09-23] MEDS: PRENATAL VITAMINS W/ FOLIC ACID TABLET (FP) PO SCH (10:15)
[2016-09-23] MEDS: ASPIRIN 81 MG CHEWABLE TABLETS PO SCH (10:15)
[2016-09-23] MEDS: BACITRACIN 0.9 GM PACKET TP SCH ×2 (10:15→21:25)
[2016-09-23] MEDS: NICOTINE 21 MG/24 HOURS TOPICAL PATCH TD SCH (10:15)
[2016-09-23] MEDS: LEVOFLOXACIN 500 MG TABLET (FP) PO SCH (10:15)
[2016-09-23] MEDS: LACTULOSE 20 GM/30 ML UDC (FOR ORAL USE ONLY) PO PRN (10:17)
[2016-09-23] MEDS: NICOTINE POLACRILEX 4 MG GUM BUC PRN (10:17)
[2016-09-23] MEDS: THIAMINE HCL 100 MG TABLET (FP) PO SCH (21:24)
[2016-09-23] MEDS: traZODone HCL 50 MG TABLET (FP) PO SCH (21:24)
[2016-09-23] MEDS: diphenhydrAMINE HCL 50 MG CAPSULE PO PRN (21:25)
[2016-09-23] MEDS: DOCUSATE SODIUM 100 MG CAPSULE (FP) PO SCH (21:25)
[2016-09-24] MEDS: METHADONE HCL 40 MG DISPERSABLE TABLET PO SCH (05:55)
[2016-09-24] MEDS: NICOTINE POLACRILEX 4 MG GUM BUC PRN (05:56)
[2016-09-24] MEDS: LEVOFLOXACIN 500 MG TABLET (FP) PO SCH (10:34)
[2016-09-24] MEDS: BACITRACIN 0.9 GM PACKET TP SCH ×2 (10:34→21:06)
[2016-09-24] MEDS: PRENATAL VITAMINS W/ FOLIC ACID TABLET (FP) PO SCH (10:34)
[2016-09-24] MEDS: ASPIRIN 81 MG CHEWABLE TABLETS PO SCH (10:34)
[2016-09-24] MEDS: NICOTINE 21 MG/24 HOURS TOPICAL PATCH TD SCH (10:34)
[2016-09-24] MEDS: LACTULOSE 20 GM/30 ML UDC (FOR ORAL USE ONLY) PO PRN (10:37)
[2016-09-24] MEDS ORDERED: PT OWN MED DRAWER 7, Y5N ONE (11:13)
[2016-09-24] MEDS ORDERED: SODIUM PHOSPHATE/NA BIPHOS 133 ML ENEMA PR ONE (12:17)
[2016-09-24] MEDS: traZODone HCL 50 MG TABLET (FP) PO SCH (21:05)
[2016-09-24] MEDS: THIAMINE HCL 100 MG TABLET (FP) PO SCH (21:05)
[2016-09-24] MEDS: diphenhydrAMINE HCL 50 MG CAPSULE PO PRN (21:05)
[2016-09-24] MEDS: DOCUSATE SODIUM 100 MG CAPSULE (FP) PO SCH (21:05)
[2016-09-25] MEDS: METHADONE HCL 40 MG DISPERSABLE TABLET PO SCH (06:17)
[2016-09-25] MEDS: NICOTINE POLACRILEX 4 MG GUM BUC PRN ×2 (06:21→10:24)
[2016-09-25] MEDS: PRENATAL VITAMINS W/ FOLIC ACID TABLET (FP) PO SCH (10:21)
[2016-09-25] MEDS: NICOTINE 21 MG/24 HOURS TOPICAL PATCH TD SCH (10:21)
[2016-09-25] MEDS: ASPIRIN 81 MG CHEWABLE TABLETS PO SCH (10:21)
[2016-09-25] MEDS: LEVOFLOXACIN 500 MG TABLET (FP) PO SCH (10:21)
[2016-09-25] MEDS: BACITRACIN 0.9 GM PACKET TP SCH ×2 (10:23→22:41)
[2016-09-25] MEDS: THIAMINE HCL 100 MG TABLET (FP) PO SCH (21:08)
[2016-09-25] MEDS: DOCUSATE SODIUM 100 MG CAPSULE (FP) PO SCH (21:08)
[2016-09-25] MEDS: traZODone HCL 50 MG TABLET (FP) PO SCH (21:08)
[2016-09-25] MEDS: diphenhydrAMINE HCL 50 MG CAPSULE PO PRN (21:08)
[2016-09-26] MEDS: NICOTINE POLACRILEX 4 MG GUM BUC PRN (05:54)
[2016-09-26] MEDS: METHADONE HCL 40 MG DISPERSABLE TABLET PO SCH (05:54)
[2016-09-26] MEDS: PRENATAL VITAMINS W/ FOLIC ACID TABLET (FP) PO SCH (10:23)
[2016-09-26] MEDS: NICOTINE 21 MG/24 HOURS TOPICAL PATCH TD SCH (10:23)
[2016-09-26] MEDS: ASPIRIN 81 MG CHEWABLE TABLETS PO SCH (10:23)
[2016-09-26] MEDS: LEVOFLOXACIN 500 MG TABLET (FP) PO SCH (10:23)
[2016-09-26] MEDS: BACITRACIN 0.9 GM PACKET TP SCH ×2 (10:24→21:16)
[2016-09-26] MEDS ORDERED: PT OWN MED DRAWER 7, Y5N ONE (14:48)
[2016-09-26] MEDS: traZODone HCL 50 MG TABLET (FP) PO SCH (21:14)
[2016-09-26] MEDS: THIAMINE HCL 100 MG TABLET (FP) PO SCH (21:14)
[2016-09-26] MEDS: DOCUSATE SODIUM 100 MG CAPSULE (FP) PO SCH (21:14)
[2016-09-26] MEDS: diphenhydrAMINE HCL 50 MG CAPSULE PO PRN (21:15)
[2016-09-27] MEDS: METHADONE HCL 40 MG DISPERSABLE TABLET PO SCH (06:04)
[2016-09-27] MEDS: NICOTINE POLACRILEX 4 MG GUM BUC PRN ×2 (06:09→10:14)
[2016-09-27] MEDS: PRENATAL VITAMINS W/ FOLIC ACID TABLET (FP) PO SCH (10:13)
[2016-09-27] MEDS: NICOTINE 21 MG/24 HOURS TOPICAL PATCH TD SCH (10:14)
[2016-09-27] MEDS: ASPIRIN 81 MG CHEWABLE TABLETS PO SCH (10:14)
[2016-09-27] MEDS: BACITRACIN 0.9 GM PACKET TP SCH ×2 (10:14→21:06)
[2016-09-27] MEDS: MAGNESIUM HYDROX 2400MG/30ML ORAL SUSPENSION 30 ML CUP PO PRN (10:14)
[2016-09-27] MEDS: DOCUSATE SODIUM 100 MG CAPSULE (FP) PO SCH (21:04)
[2016-09-27] MEDS: THIAMINE HCL 100 MG TABLET (FP) PO SCH (21:04)
[2016-09-27] MEDS: traZODone HCL 50 MG TABLET (FP) PO SCH (21:05)
[2016-09-27] MEDS: diphenhydrAMINE HCL 50 MG CAPSULE PO PRN (21:05)
[2016-09-27] MEDS: LACTULOSE 20 GM/30 ML UDC (FOR ORAL USE ONLY) PO SCH (21:08)
[2016-09-28] MEDS: METHADONE HCL 40 MG DISPERSABLE TABLET PO SCH (05:54)
[2016-09-28] MEDS: NICOTINE 21 MG/24 HOURS TOPICAL PATCH TD SCH (10:18)
[2016-09-28] MEDS: LACTULOSE 20 GM/30 ML UDC (FOR ORAL USE ONLY) PO SCH ×2 (10:18→22:37)
[2016-09-28] MEDS: PRENATAL VITAMINS W/ FOLIC ACID TABLET (FP) PO SCH (10:18)
[2016-09-28] MEDS: BACITRACIN 0.9 GM PACKET TP SCH ×2 (10:18→22:37)
[2016-09-28] MEDS: ASPIRIN 81 MG CHEWABLE TABLETS PO SCH (10:18)
[2016-09-28] MEDS: THIAMINE HCL 100 MG TABLET (FP) PO SCH (21:18)
[2016-09-28] MEDS: diphenhydrAMINE HCL 50 MG CAPSULE PO PRN (21:18)
[2016-09-28] MEDS: traZODone HCL 50 MG TABLET (FP) PO SCH (21:18)
[2016-09-28] MEDS: DOCUSATE SODIUM 100 MG CAPSULE (FP) PO SCH (22:37)
[2016-09-29] MEDS: METHADONE HCL 40 MG DISPERSABLE TABLET PO SCH (05:56)
[2016-09-29] MEDS: NICOTINE POLACRILEX 4 MG GUM BUC PRN ×2 (05:57→10:21)
[2016-09-29] MEDS: BACITRACIN 0.9 GM PACKET TP SCH ×2 (10:18→21:15)
[2016-09-29] MEDS: PRENATAL VITAMINS W/ FOLIC ACID TABLET (FP) PO SCH (10:18)
[2016-09-29] MEDS: ASPIRIN 81 MG CHEWABLE TABLETS PO SCH (10:18)
[2016-09-29] MEDS: NICOTINE 21 MG/24 HOURS TOPICAL PATCH TD SCH (10:19)
[2016-09-29] MEDS: LACTULOSE 20 GM/30 ML UDC (FOR ORAL USE ONLY) PO SCH ×2 (10:19→21:15)
[2016-09-29] MEDS ORDERED: PT OWN MED DRAWER 7, Y5N ONE (14:10)
[2016-09-29] MEDS: traZODone HCL 50 MG TABLET (FP) PO SCH (21:14)
[2016-09-29] MEDS: diphenhydrAMINE HCL 50 MG CAPSULE PO PRN (21:14)
[2016-09-29] MEDS: THIAMINE HCL 100 MG TABLET (FP) PO SCH (21:15)
[2016-09-29] MEDS: DOCUSATE SODIUM 100 MG CAPSULE (FP) PO SCH (21:15)
[2016-09-30] MEDS: NICOTINE POLACRILEX 4 MG GUM BUC PRN ×2 (06:00→10:18)
[2016-09-30] MEDS: METHADONE HCL 40 MG DISPERSABLE TABLET PO SCH (06:00)
[2016-09-30] MEDS: PRENATAL VITAMINS W/ FOLIC ACID TABLET (FP) PO SCH (10:16)
[2016-09-30] MEDS: ASPIRIN 81 MG CHEWABLE TABLETS PO SCH (10:16)
[2016-09-30] MEDS: LACTULOSE 20 GM/30 ML UDC (FOR ORAL USE ONLY) PO SCH ×2 (10:16→21:02)
[2016-09-30] MEDS: NICOTINE 21 MG/24 HOURS TOPICAL PATCH TD SCH (10:16)
[2016-09-30] MEDS: BACITRACIN 0.9 GM PACKET TP SCH ×2 (10:16→21:02)
[2016-09-30] MEDS: diphenhydrAMINE HCL 50 MG CAPSULE PO PRN (21:01)
[2016-09-30] MEDS: traZODone HCL 50 MG TABLET (FP) PO SCH (21:01)
[2016-09-30] MEDS: THIAMINE HCL 100 MG TABLET (FP) PO SCH (21:02)
[2016-09-30] MEDS: DOCUSATE SODIUM 100 MG CAPSULE (FP) PO SCH (21:02)
[2016-10-01] MEDS: METHADONE HCL 40 MG DISPERSABLE TABLET PO SCH (05:49)
[2016-10-01] MEDS: NICOTINE POLACRILEX 4 MG GUM BUC PRN (05:50)
[2016-10-01] MEDS: PRENATAL VITAMINS W/ FOLIC ACID TABLET (FP) PO SCH (10:30)
[2016-10-01] MEDS: ASPIRIN 81 MG CHEWABLE TABLETS PO SCH (10:30)
[2016-10-01] MEDS: LACTULOSE 20 GM/30 ML UDC (FOR ORAL USE ONLY) PO SCH ×2 (10:30→21:13)
[2016-10-01] MEDS: BACITRACIN 0.9 GM PACKET TP SCH ×2 (10:30→21:13)
[2016-10-01] MEDS: NICOTINE 21 MG/24 HOURS TOPICAL PATCH TD SCH (10:31)
[2016-10-01] MEDS ORDERED: PT OWN MED DRAWER 7, Y5N ONE (13:39)
[2016-10-01] MEDS: diphenhydrAMINE HCL 50 MG CAPSULE PO PRN (21:13)
[2016-10-01] MEDS: THIAMINE HCL 100 MG TABLET (FP) PO SCH (21:13)
[2016-10-01] MEDS: traZODone HCL 50 MG TABLET (FP) PO SCH (21:13)
[2016-10-01] MEDS: DOCUSATE SODIUM 100 MG CAPSULE (FP) PO SCH (21:14)
[2016-10-02] MEDS: METHADONE HCL 40 MG DISPERSABLE TABLET PO SCH (06:12)
[2016-10-02] MEDS: NICOTINE POLACRILEX 4 MG GUM BUC PRN ×2 (06:16→10:07)
[2016-10-02] MEDS: BACITRACIN 0.9 GM PACKET TP SCH ×2 (10:06→23:03)
[2016-10-02] MEDS: NICOTINE 21 MG/24 HOURS TOPICAL PATCH TD SCH (10:06)
[2016-10-02] MEDS: LACTULOSE 20 GM/30 ML UDC (FOR ORAL USE ONLY) PO SCH ×2 (10:06→21:04)
[2016-10-02] MEDS: PRENATAL VITAMINS W/ FOLIC ACID TABLET (FP) PO SCH (10:06)
[2016-10-02] MEDS: ASPIRIN 81 MG CHEWABLE TABLETS PO SCH (10:06)
[2016-10-02] MEDS: diphenhydrAMINE HCL 50 MG CAPSULE PO PRN (21:04)
[2016-10-02] MEDS: DOCUSATE SODIUM 100 MG CAPSULE (FP) PO SCH (21:04)
[2016-10-02] MEDS: traZODone HCL 50 MG TABLET (FP) PO SCH (21:04)
[2016-10-02] MEDS: THIAMINE HCL 100 MG TABLET (FP) PO SCH (23:03)
[2016-10-03] MEDS: METHADONE HCL 40 MG DISPERSABLE TABLET PO SCH (06:06)
[2016-10-03] MEDS: NICOTINE POLACRILEX 4 MG GUM BUC PRN (06:09)
[2016-10-03] MEDS: LACTULOSE 20 GM/30 ML UDC (FOR ORAL USE ONLY) PO SCH ×2 (10:06→22:30)
[2016-10-03] MEDS: ASPIRIN 81 MG CHEWABLE TABLETS PO SCH (10:06)
[2016-10-03] MEDS: BACITRACIN 0.9 GM PACKET TP SCH ×2 (10:06→22:30)
[2016-10-03] MEDS: NICOTINE 21 MG/24 HOURS TOPICAL PATCH TD SCH (10:07)
[2016-10-03] MEDS: PRENATAL VITAMINS W/ FOLIC ACID TABLET (FP) PO SCH (10:07)
[2016-10-03] MEDS: traZODone HCL 50 MG TABLET (FP) PO SCH (21:05)
[2016-10-03] MEDS: diphenhydrAMINE HCL 50 MG CAPSULE PO PRN (21:05)
[2016-10-03] MEDS: THIAMINE HCL 100 MG TABLET (FP) PO SCH (22:30)
[2016-10-03] MEDS: DOCUSATE SODIUM 100 MG CAPSULE (FP) PO SCH (22:30)
[2016-10-04] MEDS: METHADONE HCL 40 MG DISPERSABLE TABLET PO SCH (05:58)
[2016-10-04] MEDS: NICOTINE POLACRILEX 4 MG GUM BUC PRN ×2 (05:59→10:35)
[2016-10-04] MEDS: PRENATAL VITAMINS W/ FOLIC ACID TABLET (FP) PO SCH (10:33)
[2016-10-04] MEDS: ASPIRIN 81 MG CHEWABLE TABLETS PO SCH (10:33)
[2016-10-04] MEDS: BACITRACIN 0.9 GM PACKET TP SCH ×2 (10:34→21:09)
[2016-10-04] MEDS: NICOTINE 21 MG/24 HOURS TOPICAL PATCH TD SCH (10:34)
[2016-10-04] MEDS: LACTULOSE 20 GM/30 ML UDC (FOR ORAL USE ONLY) PO SCH ×2 (10:34→22:00)
[2016-10-04] MEDS: diphenhydrAMINE HCL 50 MG CAPSULE PO PRN (21:09)
[2016-10-04] MEDS: THIAMINE HCL 100 MG TABLET (FP) PO SCH (21:10)
[2016-10-04] MEDS: DOCUSATE SODIUM 100 MG CAPSULE (FP) PO SCH (21:10)
[2016-10-04] MEDS: traZODone HCL 50 MG TABLET (FP) PO SCH (21:10)
[2016-10-05] MEDS: METHADONE HCL 40 MG DISPERSABLE TABLET PO SCH (05:44)
[2016-10-05] MEDS: NICOTINE 21 MG/24 HOURS TOPICAL PATCH TD SCH (10:21)
[2016-10-05] MEDS: BACITRACIN 0.9 GM PACKET TP SCH ×2 (10:21→21:10)
[2016-10-05] MEDS: LACTULOSE 20 GM/30 ML UDC (FOR ORAL USE ONLY) PO SCH ×2 (10:21→21:10)
[2016-10-05] MEDS: PRENATAL VITAMINS W/ FOLIC ACID TABLET (FP) PO SCH (10:21)
[2016-10-05] MEDS: ASPIRIN 81 MG CHEWABLE TABLETS PO SCH (10:21)
[2016-10-05] MEDS: NICOTINE POLACRILEX 4 MG GUM BUC PRN (10:22)
[2016-10-05] MEDS: diphenhydrAMINE HCL 50 MG CAPSULE PO PRN (21:09)
[2016-10-05] MEDS: traZODone HCL 50 MG TABLET (FP) PO SCH (21:09)
[2016-10-05] MEDS: DOCUSATE SODIUM 100 MG CAPSULE (FP) PO SCH (21:10)
[2016-10-05] MEDS: THIAMINE HCL 100 MG TABLET (FP) PO SCH (21:10)
[2016-10-06] MEDS: METHADONE HCL 40 MG DISPERSABLE TABLET PO SCH (06:15)
[2016-10-06] MEDS: NICOTINE POLACRILEX 4 MG GUM BUC PRN (06:15)
[2016-10-06] MEDS: ASPIRIN 81 MG CHEWABLE TABLETS PO SCH (10:12)
[2016-10-06] MEDS: LACTULOSE 20 GM/30 ML UDC (FOR ORAL USE ONLY) PO SCH ×2 (10:12→21:08)
[2016-10-06] MEDS: PRENATAL VITAMINS W/ FOLIC ACID TABLET (FP) PO SCH (10:12)
[2016-10-06] MEDS: NICOTINE 21 MG/24 HOURS TOPICAL PATCH TD SCH (10:13)
[2016-10-06] MEDS: BACITRACIN 0.9 GM PACKET TP SCH ×2 (10:13→21:08)
[2016-10-06] MEDS ORDERED: PT OWN MED DRAWER 7, Y5N ONE (11:35)
[2016-10-06] MEDS: diphenhydrAMINE HCL 50 MG CAPSULE PO PRN (21:08)
[2016-10-06] MEDS: DOCUSATE SODIUM 100 MG CAPSULE (FP) PO SCH (21:08)
[2016-10-06] MEDS: traZODone HCL 50 MG TABLET (FP) PO SCH (21:08)
[2016-10-06] MEDS: THIAMINE HCL 100 MG TABLET (FP) PO SCH (21:09)
[2016-10-07] MEDS: METHADONE HCL 40 MG DISPERSABLE TABLET PO SCH (05:58)
[2016-10-07] MEDS: NICOTINE POLACRILEX 4 MG GUM BUC PRN ×2 (06:04→09:57)
[2016-10-07] MEDS: ASPIRIN 81 MG CHEWABLE TABLETS PO SCH (09:55)
[2016-10-07] MEDS: NICOTINE 21 MG/24 HOURS TOPICAL PATCH TD SCH (09:56)
[2016-10-07] MEDS: LACTULOSE 20 GM/30 ML UDC (FOR ORAL USE ONLY) PO SCH ×2 (09:56→21:02)
[2016-10-07] MEDS: PRENATAL VITAMINS W/ FOLIC ACID TABLET (FP) PO SCH (09:56)
[2016-10-07] MEDS: BACITRACIN 0.9 GM PACKET TP SCH ×2 (09:56→21:01)
[2016-10-07] MEDS: THIAMINE HCL 100 MG TABLET (FP) PO SCH (21:00)
[2016-10-07] MEDS: traZODone HCL 50 MG TABLET (FP) PO SCH (21:00)
[2016-10-07] MEDS: diphenhydrAMINE HCL 50 MG CAPSULE PO PRN (21:01)
[2016-10-07] MEDS: DOCUSATE SODIUM 100 MG CAPSULE (FP) PO SCH (21:01)
[2016-10-08] MEDS: METHADONE HCL 40 MG DISPERSABLE TABLET PO SCH (05:53)
[2016-10-08] MEDS: NICOTINE POLACRILEX 4 MG GUM BUC PRN (05:54)
[2016-10-08] MEDS: NICOTINE 21 MG/24 HOURS TOPICAL PATCH TD SCH (10:01)
[2016-10-08] MEDS: ASPIRIN 81 MG CHEWABLE TABLETS PO SCH (10:01)
[2016-10-08] MEDS: BACITRACIN 0.9 GM PACKET TP SCH ×2 (10:01→22:31)
[2016-10-08] MEDS: LACTULOSE 20 GM/30 ML UDC (FOR ORAL USE ONLY) PO SCH ×2 (10:01→22:31)
[2016-10-08] MEDS: PRENATAL VITAMINS W/ FOLIC ACID TABLET (FP) PO SCH (10:01)
[2016-10-08] MEDS ORDERED: BISACODYL 10 MG SUPP.RECT RC PRN (13:47)
[2016-10-08] MEDS: diphenhydrAMINE HCL 50 MG CAPSULE PO PRN (21:01)
[2016-10-08] MEDS: traZODone HCL 50 MG TABLET (FP) PO SCH (21:01)
[2016-10-08] MEDS: DOCUSATE SODIUM 100 MG CAPSULE (FP) PO SCH (21:01)
[2016-10-08] MEDS: THIAMINE HCL 100 MG TABLET (FP) PO SCH (21:02)
[2016-10-09] MEDS: METHADONE HCL 40 MG DISPERSABLE TABLET PO SCH (05:54)
[2016-10-09] MEDS: NICOTINE POLACRILEX 4 MG GUM BUC PRN ×2 (05:55→10:06)
[2016-10-09] MEDS: NICOTINE 21 MG/24 HOURS TOPICAL PATCH TD SCH (10:05)
[2016-10-09] MEDS: LACTULOSE 20 GM/30 ML UDC (FOR ORAL USE ONLY) PO SCH ×2 (10:05→21:03)
[2016-10-09] MEDS: PRENATAL VITAMINS W/ FOLIC ACID TABLET (FP) PO SCH (10:05)
[2016-10-09] MEDS: ASPIRIN 81 MG CHEWABLE TABLETS PO SCH (10:05)
[2016-10-09] MEDS: BACITRACIN 0.9 GM PACKET TP SCH ×2 (10:05→21:02)
[2016-10-09] MEDS: DOCUSATE SODIUM 100 MG CAPSULE (FP) PO SCH (21:01)
[2016-10-09] MEDS: traZODone HCL 50 MG TABLET (FP) PO SCH (21:01)
[2016-10-09] MEDS: diphenhydrAMINE HCL 50 MG CAPSULE PO PRN (21:02)
[2016-10-09] MEDS: THIAMINE HCL 100 MG TABLET (FP) PO SCH (21:03)
[2016-10-10] MEDS: METHADONE HCL 40 MG DISPERSABLE TABLET PO SCH (05:59)
[2016-10-10] MEDS: NICOTINE POLACRILEX 4 MG GUM BUC PRN ×2 (06:00→10:03)
[2016-10-10] MEDS: BACITRACIN 0.9 GM PACKET TP SCH ×2 (10:02→21:02)
[2016-10-10] MEDS: LACTULOSE 20 GM/30 ML UDC (FOR ORAL USE ONLY) PO SCH ×2 (10:02→21:02)
[2016-10-10] MEDS: ASPIRIN 81 MG CHEWABLE TABLETS PO SCH (10:02)
[2016-10-10] MEDS: PRENATAL VITAMINS W/ FOLIC ACID TABLET (FP) PO SCH (10:02)
[2016-10-10] MEDS: NICOTINE 21 MG/24 HOURS TOPICAL PATCH TD SCH (10:03)
[2016-10-10] MEDS: traZODone HCL 50 MG TABLET (FP) PO SCH (21:01)
[2016-10-10] MEDS: DOCUSATE SODIUM 100 MG CAPSULE (FP) PO SCH (21:01)
[2016-10-10] MEDS: diphenhydrAMINE HCL 50 MG CAPSULE PO PRN (21:01)
[2016-10-10] MEDS: THIAMINE HCL 100 MG TABLET (FP) PO SCH (21:03)
[2016-10-11] MEDS: METHADONE HCL 40 MG DISPERSABLE TABLET PO SCH (06:01)
[2016-10-11] MEDS: NICOTINE POLACRILEX 4 MG GUM BUC PRN ×2 (06:03→10:11)
[2016-10-11] MEDS: ASPIRIN 81 MG CHEWABLE TABLETS PO SCH (10:10)
[2016-10-11] MEDS: PRENATAL VITAMINS W/ FOLIC ACID TABLET (FP) PO SCH (10:10)
[2016-10-11] MEDS: BACITRACIN 0.9 GM PACKET TP SCH ×2 (10:11→21:01)
[2016-10-11] MEDS: LACTULOSE 20 GM/30 ML UDC (FOR ORAL USE ONLY) PO SCH ×2 (10:11→21:01)
[2016-10-11] MEDS: NICOTINE 21 MG/24 HOURS TOPICAL PATCH TD SCH (10:11)
[2016-10-11] MEDS: DOCUSATE SODIUM 100 MG CAPSULE (FP) PO SCH (21:00)
[2016-10-11] MEDS: traZODone HCL 50 MG TABLET (FP) PO SCH (21:00)
[2016-10-11] MEDS: diphenhydrAMINE HCL 50 MG CAPSULE PO PRN (21:00)
[2016-10-11] MEDS: THIAMINE HCL 100 MG TABLET (FP) PO SCH (21:01)
[2016-10-12] MEDS: METHADONE HCL 40 MG DISPERSABLE TABLET PO SCH (06:02)
[2016-10-12] MEDS: NICOTINE POLACRILEX 4 MG GUM BUC PRN (06:04)
[2016-10-12 07:08] VITALS: BP 145/75; PULSE 65; TEMP 97.9
[2016-10-12] MEDS: ASPIRIN 81 MG CHEWABLE TABLETS PO SCH (09:02)
[2016-10-12] MEDS: LACTULOSE 20 GM/30 ML UDC (FOR ORAL USE ONLY) PO SCH (09:02)
[2016-10-12] MEDS: BACITRACIN 0.9 GM PACKET TP SCH (09:02)
[2016-10-12] MEDS: PRENATAL VITAMINS W/ FOLIC ACID TABLET (FP) PO SCH (09:15)
[2016-10-12] MEDS: NICOTINE 21 MG/24 HOURS TOPICAL PATCH TD SCH (09:16)
== END 2016-10-12 09:04 | disposition home or self-care (01) | DRG 895 ==
LOC: YASAS 12:04 → Y3N 15:21 → Y3W 09-17 13:05
PROVIDERS: ADMIT Psychiatry & Neurology Psychiatry; ATTEND Internal Medicine
PROC: HZ2ZZZZ Detoxification Services for Substance Abuse Treatment (ICD-10-PCS; principal; 2016-09-13)
PROC: HZ42ZZZ Group Counseling for Substance Abuse Treatment, Cognitive-Behavioral (ICD-10-PCS; 2016-09-17)
DX: F19.230 Other psychoactive substance dependence with withdrawal, uncomplicated (principal); F11.20 Opioid dependence, uncomplicated; F19.280 Other psychoactive substance dependence with psychoactive substance-induced anxiety disorder; F13.230 Sedative, hypnotic or anxiolytic dependence with withdrawal, uncomplicated; F17.210 Nicotine dependence, cigarettes, uncomplicated; F19.24 Other psychoactive substance dependence with psychoactive substance-induced mood disorder; F31.9 Bipolar disorder, unspecified; I10 Essential (primary) hypertension; B18.2 Chronic viral hepatitis C; M40.209 Unspecified kyphosis, site unspecified; G57.93 Unspecified mononeuropathy of bilateral lower limbs; R50.9 Fever, unspecified; R29.6 Repeated falls; K59.00 Constipation, unspecified; Z86.69 Personal history of other diseases of the nervous system and sense organs; Z87.898 Personal history of other specified conditions; Z91.5 Personal history of self-harm; S80.211A Abrasion, right knee, initial encounter; W01.0XXA Fall on same level from slipping, tripping and stumbling without subsequent striking against object, initial encounter; Z91.81 History of falling; Y93.01 Activity, walking, marching and hiking; Y92.232 Corridor of hospital as the place of occurrence of the external cause
CPT/HCPCS: 36415; 74000-TC; 80053; 81003; 81015; 85027; 86593; 87086; 93005; 93010

== ENCOUNTER 2017-01-31 15:31 | Inpatient (IN) | payer MEDICARE, OTHER ==
[2017-01-31 18:04] VITALS: BMI 25.1
--- NOTE | 2017-01-31 20:24 | HP ---
Admission [facility] Chief Complaint: HERE FOR REHAB Allergies/Adverse Reactions: Allergies Allergy/AdvReac Type Severity Reaction Status Date / Time penicillin G Allergy Severe Rash Verified 01/31/17 18:44 phenytoin sodium Allergy Mild Verified 01/31/17 18:44 [From Dilantin] phenytoin sodium extended Allergy Mild Verified 01/31/17 18:44 [From Dilantin] History of Present Illness: 71 Y.O. MALE WITH BENZO DEPENDENCE ADMITTED TO REHAB. CLIENT COMPLETED DETOX IN [facility] TODAY. HE IS KNOWN TO [facility]. REPORTS LONGEST CLEAN TIME 6 MONTHS. REFERRED BY DETOX CTR. HE IS ON MMTP 140 MG DAILY. LDM TODAY. [facility]. Exam Limitations: Physical Impairment ([place] WITH CANE 2/2 SCOLIOSIS) - Ebola screening Have you traveled outside of the country in the last 21 days: No Have you had contact with anyone from an Ebola affected area: No Have you been sick,other than usual withdrawal symptoms: No - Review of Systems Constitutional: No Symptoms Reported EENT: reports: Dental Problems (MISSING TEETH) Respiratory: reports: No Symptoms reported Cardiac: reports: No Symptoms Reported GI: reports: Constipated : reports: Other (HESITANCY) Musculoskeletal: reports: No Symptoms Reported Integumentary: reports: No Symptoms Reported Neuro: reports: Seizure (R/T XANAX WITHDRAWAL) Endocrine: reports: No Symptoms Reported Hematology: reports: No Symptoms Reported Psychiatric: reports: Anxious Other Systems: Reviewed and Negative Patient History - Patient Medical History Hx Anemia: No Hx Asthma: No Hx Chronic Obstructive Pulmonary Disease (COPD): No Hx Cancer: No Hx Cardiac Disorders: No Hx Congestive Heart Failure: No Hx Hypertension: Yes Hx Hypercholesterolemia: No Hx Pacemaker: No HX Cerebrovascular Accident: No Hx Seizures: Yes (R/T BENZO WITHDRAWAL) Hx Dementia: No Hx Diabetes: No Hx Gastrointestinal Disorders: No Hx Liver Disease: No Hx Genitourinary Disorders: No Hx Sexually Transmitted Disorders: No Hx Renal Disease (ESRD): No Hx Thyroid Disease: No Hx Human Immunodeficiency Virus (HIV): No Hx Hepatitis C: Yes Hx Depression: Yes Hx Suicide Attempt: Yes (LAST ATTEMPT 2011) Hx Bipolar Disorder: Yes Hx Schizophrenia: No - Patient Surgical History Past Surgical History: Yes Hx Neurologic Surgery: No Hx Cataract Extraction: No Hx Cardiac Surgery: No Hx Lung Surgery: No Hx Breast Surgery: No Hx Breast Biopsy: No Hx Abdominal Surgery: Yes (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) Hx Appendectomy: No Hx Cholecystectomy: No Hx Genitourinary Surgery: No Hx Section: No Hx Orthopedic Surgery: No Hx Hysterectomy: No Anesthesia Reaction: No - PPD History Previous Implant?: Yes Documented Results: Positive w/o proof Implanted On Prior R Admission?: No Results: CXR 2015 NEG PPD to be Administered?: No - Smoking Cessation Smoking history: Current every day smoker Have you smoked in the past 12 months: Yes Aproximately how many cigarettes per day: 15 Cigars Per Day: 0 Hx Chewing Tobacco Use: No Initiated information on smoking cessation: Yes 'Breaking Loose' booklet given: 01/31/17 - Substance & Tx. History Hx Alcohol Use: No Hx Substance Use: Yes Substance Use Type: Tranquilizers (KLONOPINS) Hx Substance Use Treatment: Yes ([facility]) - Substances Abused KLONOPINS Route: Oral Frequency: Daily Amount used: 6MG DAILY Age of first use: 48 Date of Last Use: 01/24/17 Family Disease History - Family Disease History Family Disease History: Diabetes: Father (heroin dependence ), Other: Father, Mother (alcohol dependence ), Sister (OVERDOSE) Admission Physical Exam [facility] - Vital Signs Vital Signs: Vital Signs - 24 hr 01/31/17 18:01 Temperature 98.3 F Pulse Rate 79 Respiratory 18 Rate Blood Pressure 109/67 - Physical General Appearance: Yes: No Apparent Distress, Appropriately Dressed, Tremorous HEENTM: Yes: EOMI, Normocephalic, Normal Voice, Pharynx Normal Respiratory: Yes: Chest Non-Tender, Lungs Clear, Normal Breath Sounds, No Respiratory Distress, No Accessory Muscle Use Neck: Yes: No masses,lesions,Nodules, Supple, Trachea in good position Breast: Yes: Breast Exam Deferred Cardiology: Yes: Regular Rhythm, Regular Rate, S1, S2 Abdominal: Yes: Normal Bowel Sounds, Non Tender, Soft Genitourinary: Yes: Within Normal Limits Back: Yes: Other (KYPHOSIS) Musculoskeletal: Yes: Joint Stiffness, Other (AMBULATES W/ CANE) Extremities: Yes: Normal Capillary Refill, Non-Tender, Tremors Neurological: Yes: Fully Oriented, Alert, Motor Strength 5/5 Integumentary: Yes: Normal Color, Dry, Warm Lymphatic: Yes: Within Normal Limits - Diagnostic (1) Nicotine dependence Current Visit: Yes Status: Acute Qualifiers: Nicotine product type: cigarettes Substance use status: uncomplicated Qualified Code(s): F17.210 - Nicotine dependence, cigarettes, uncomplicated Comment: . (2) Sedative, hypnotic or anxiolytic dependence, uncomplicated Current Visit: Yes Status: Acute Comment: SEIZURE RELATED WITHDRAWAL (3) Kyphosis deformity of spine Current Visit: Yes Status: Chronic Comment: . (4) Methadone maintenance therapy patient Current Visit: Yes Status: Chronic Comment: MMTP 140 MG PENDING VERIFICATION (5) HTN (hypertension) Current Visit: Yes Status: Acute (6) Seizure disorder Current Visit: Yes Status: Suspected Comment: R/T BENZO WITHDRAWAL Cleared for Admission [facility] - Detox or Rehab Detox Regimen/Protocol: Not Applicable Claeared for Rehab Admission: Yes [facility] Breath Alcohol Content Breath Alcohol Content: 0 Urine Drug Screen - Results Drug Screen Negative: No Urine Drug Screen Results: BZO-Benzodiazepines, MTD-Methadone Inpatient Rehab Admission - Initial Determination Are CD services needed?: Yes Free of communicable disease: Yes Not in need of hospitalization: Yes - Rehab Admission Criteria Previous failed treatment: Yes Poor recovery environment: Yes Comorbidities: Yes Lacks judgement: Yes Patient is meeting Inpatient Rehab admission criteria:: Yes
[2017-01-31] MEDS ORDERED: LOPERAMIDE HCL 2 MG CAPSULE PO PRN (20:38)
[2017-01-31] MEDS ORDERED: MAG HYDROX/AL HYDROX/SIMETH 30 ML UNIT-DOSE CUP PO PRN (20:38)
[2017-01-31] MEDS ORDERED: ACETAMINOPHEN 325 MG TABLET (FP) PO PRN (20:38)
[2017-01-31] MEDS ORDERED: IBUPROFEN 400 MG TABLET (FP) PO PRN (20:38)
[2017-01-31] MEDS ORDERED: guaiFENesin/D-METHORPHAN HB 10 ML UNIT-DOSE CUPS PO PRN (20:38)
[2017-01-31] MEDS ORDERED: MENTHOL/PHENOL 1 EACH UD MM PRN (20:38)
[2017-01-31] MEDS ORDERED: P-EPHED 60MG/TRIPROLIDI 2.5MG TABLET PO PRN (20:38)
[2017-01-31 23:22] LABS: URINE APPEARANCE CLEAR; URINE BILIRUBIN NEGATIVE (NEGATIVE); URINE BLOOD NEGATIVE (NEGATIVE); URINE COLOR DKYELLOW; URINE GLUCOSE (UA) NEGATIVE (NEGATIVE); URINE KETONE NEGATIVE (NEGATIVE); URINE LEUK ESTERASE TRACE (NEGATIVE); URINE NITRITE NEGATIVE (NEGATIVE); URINE PROTEIN NEGATIVE (NEGATIVE); URINE UROBILINOGEN 4.0 E.U/dl mg/dL (0.2-1.0)
[2017-01-31 23:35] LABS: URINE MUCUS RARE; URINE RBC <1 /hpf (0-3); URINE WBC 1 /hpf (3-5)
[2017-01-31] MEDS: NICOTINE 21 MG/24 HOURS TOPICAL PATCH TD SCH (23:54)
[2017-01-31] MEDS: THIAMINE HCL 100 MG TABLET (FP) PO SCH (23:55)
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
[2017-02-01] MEDS ORDERED: METHADONE HCL 40 MG DISPERSABLE TABLET PO SCH ×2 (08:00→08:02)
[2017-02-01] MEDS ORDERED: METHADONE 120 MG, METHADONE 20 MG PO SCH (08:10)
[2017-02-01] MEDS ORDERED: METHADONE HCL 10 MG TABLET ONE (08:48)
[2017-02-01] MEDS ORDERED: METHADONE HCL 40 MG DISPERSABLE TABLET ONE (08:49)
[2017-02-01] MEDS: PRENATAL VITAMINS W/ FOLIC ACID TABLET (FP) PO SCH (09:02)
[2017-02-01] MEDS: ASPIRIN 81 MG CHEWABLE TABLETS PO SCH (09:02)
[2017-02-01] MEDS: NICOTINE 21 MG/24 HOURS TOPICAL PATCH TD SCH (09:05)
[2017-02-01] MEDS: NICOTINE POLACRILEX 2 MG GUM BC PRN (09:06)
[2017-02-01] MEDS: hydrOXYzine PAMOATE 50 MG CAPSULE (FP) PO PRN (12:22)
[2017-02-01] MEDS: GABAPENTIN 400 MG CAPSULE (FP) PO SCH ×2 (12:22→21:09)
[2017-02-01 14:11] LABS: MCH 30.9 pg (25.7-33.7); MCHC 32.5 g/dl (32.0-35.9); MEAN CELL VOLUME 94.9 fl (80-96); MEAN PLT VOLUME 9.7 fl (7.5-11.1); PLATELET COUNT 224 K/MM3 (134-434); RDW 14.4 % (11.9-15.9); WHITE BLOOD COUNT 7.1 K/mm3 (4.0-10.0)
[2017-02-01 14:17] LABS: ALBUMIN 3.8 g/dl (3.4-5.0); ANION GAP 10 (8-16); CALCIUM 8.4 mg/dL (8.5-10.1); CO2 28 mmol/L (21-32); GLUCOSE,RANDOM 129 mg/dL (74-106)
[2017-02-01 14:22] LABS: ALK PHOS 175 U/L (45-117); BILIRUBIN,TOTAL 0.6 mg/dL (0.2-1.0); CREATININE 1.2 mg/dL (0.7-1.3); SGOT/AST 32 U/L (15-37); SGPT/ALT 40 U/L (12-78); TOT PROT 7.3 g/dl (6.4-8.2)
[2017-02-01] MEDS: THIAMINE HCL 100 MG TABLET (FP) PO SCH (21:09)
[2017-02-01] MEDS: traZODone HCL 50 MG TABLET (FP) PO SCH (21:09)
--- NOTE | 2017-02-01 22:48 | EKG ---
Test Reason : Blood Pressure : / mmHG Vent. Rate : 069 BPM Atrial Rate : 069 BPM P-R Int : 150 ms QRS Dur : 084 ms QT Int : 410 ms P-R-T Axes : -03 -31 -03 degrees QTc Int : 439 ms NORMAL SINUS RHYTHM BASELINE ARTIFACTS EARLY TRANSITION IN V2 LEFT AXIS DEVIATION MODERATE VOLTAGE CRITERIA FOR LVH, MAY BE NORMAL VARIANT NONSPECIFIC ST -T ABNORMALITIES ABNORMAL ECG WHEN COMPARED WITH ECG OF 13-SEP-2016 16:09, QUESTIONABLE CHANGE IN QRS DURATION REPEAT EKG IF CLINICALLY INDICATED Confirmed by JASWINDER FLORES MD ([id number]) on 02/01/2017 10:48:16 PM Referred By: Confirmed By:JASWINDER FLORES MD
[2017-02-02] MEDS ORDERED: METHADONE HCL 40 MG DISPERSABLE TABLET ONE (04:34)
[2017-02-02] MEDS ORDERED: METHADONE HCL 10 MG TABLET ONE (04:34)
[2017-02-02] MEDS ORDERED: METHADONE 120 MG, METHADONE 30 MG PO SCH (06:00)
[2017-02-02] MEDS: METHADONE 120 MG, METHADONE 20 MG PO SCH (06:27)
[2017-02-02] MEDS: PRENATAL VITAMINS W/ FOLIC ACID TABLET (FP) PO SCH (09:49)
[2017-02-02] MEDS: ASPIRIN 81 MG CHEWABLE TABLETS PO SCH (09:49)
[2017-02-02] MEDS: NICOTINE POLACRILEX 2 MG GUM BC PRN (09:49)
[2017-02-02] MEDS: GABAPENTIN 400 MG CAPSULE (FP) PO SCH ×2 (09:49→21:02)
[2017-02-02] MEDS: NICOTINE 21 MG/24 HOURS TOPICAL PATCH TD SCH (10:23)
[2017-02-02] MEDS: traZODone HCL 50 MG TABLET (FP) PO SCH (21:02)
[2017-02-02] MEDS: hydrOXYzine PAMOATE 50 MG CAPSULE (FP) PO PRN (21:02)
[2017-02-02] MEDS: THIAMINE HCL 100 MG TABLET (FP) PO SCH (21:02)
[2017-02-03] MEDS ORDERED: METHADONE HCL 40 MG DISPERSABLE TABLET ONE (03:53)
[2017-02-03] MEDS ORDERED: METHADONE HCL 10 MG TABLET ONE (03:53)
[2017-02-03] MEDS: METHADONE 120 MG, METHADONE 20 MG PO SCH (06:18)
[2017-02-03] MEDS: NICOTINE POLACRILEX 2 MG GUM BC PRN ×2 (06:20→09:58)
[2017-02-03] MEDS ORDERED: PT OWN MED DRAWER 7, Y5N ONE (08:47)
[2017-02-03] MEDS: GABAPENTIN 400 MG CAPSULE (FP) PO SCH ×2 (09:56→21:01)
[2017-02-03] MEDS: NICOTINE 21 MG/24 HOURS TOPICAL PATCH TD SCH (09:56)
[2017-02-03] MEDS: PRENATAL VITAMINS W/ FOLIC ACID TABLET (FP) PO SCH (09:56)
[2017-02-03] MEDS: ASPIRIN 81 MG CHEWABLE TABLETS PO SCH (09:56)
[2017-02-03] MEDS: traZODone HCL 50 MG TABLET (FP) PO SCH (21:01)
[2017-02-03] MEDS: THIAMINE HCL 100 MG TABLET (FP) PO SCH (21:01)
[2017-02-04] MEDS ORDERED: METHADONE HCL 40 MG DISPERSABLE TABLET ONE (04:49)
[2017-02-04] MEDS ORDERED: METHADONE HCL 10 MG TABLET ONE (04:49)
[2017-02-04] MEDS: METHADONE 120 MG, METHADONE 20 MG PO SCH (06:22)
[2017-02-04] MEDS: NICOTINE POLACRILEX 2 MG GUM BC PRN ×3 (06:24→13:26)
[2017-02-04] MEDS: PRENATAL VITAMINS W/ FOLIC ACID TABLET (FP) PO SCH (09:49)
[2017-02-04] MEDS: GABAPENTIN 400 MG CAPSULE (FP) PO SCH ×2 (09:49→21:06)
[2017-02-04] MEDS: NICOTINE 21 MG/24 HOURS TOPICAL PATCH TD SCH (09:49)
[2017-02-04] MEDS: ASPIRIN 81 MG CHEWABLE TABLETS PO SCH (09:49)
[2017-02-04 10:12] LABS: HCV LOG 10 7.093 (.); HCV RNA IU/ML 12390000 IU/mL (.)
[2017-02-04] MEDS: traZODone HCL 50 MG TABLET (FP) PO SCH (21:06)
[2017-02-04] MEDS: THIAMINE HCL 100 MG TABLET (FP) PO SCH (21:06)
[2017-02-05] MEDS ORDERED: METHADONE HCL 10 MG TABLET ONE (03:22)
[2017-02-05] MEDS ORDERED: METHADONE HCL 40 MG DISPERSABLE TABLET ONE (03:22)
[2017-02-05] MEDS: METHADONE 120 MG, METHADONE 20 MG PO SCH (06:24)
[2017-02-05] MEDS: GABAPENTIN 400 MG CAPSULE (FP) PO SCH ×2 (10:00→21:02)
[2017-02-05] MEDS: NICOTINE 21 MG/24 HOURS TOPICAL PATCH TD SCH (10:00)
[2017-02-05] MEDS: PRENATAL VITAMINS W/ FOLIC ACID TABLET (FP) PO SCH (10:00)
[2017-02-05] MEDS: ASPIRIN 81 MG CHEWABLE TABLETS PO SCH (10:00)
[2017-02-05] MEDS: MAGNESIUM HYDROX 2400MG/30ML ORAL SUSPENSION 30 ML CUP PO PRN (10:02)
[2017-02-05] MEDS: NICOTINE POLACRILEX 2 MG GUM BC PRN (10:04)
[2017-02-05] MEDS: THIAMINE HCL 100 MG TABLET (FP) PO SCH (21:02)
[2017-02-05] MEDS: traZODone HCL 50 MG TABLET (FP) PO SCH (21:02)
[2017-02-06] MEDS ORDERED: METHADONE HCL 10 MG TABLET ONE (03:55)
[2017-02-06] MEDS ORDERED: METHADONE HCL 40 MG DISPERSABLE TABLET ONE (03:55)
[2017-02-06] MEDS: METHADONE 120 MG, METHADONE 20 MG PO SCH (06:21)
[2017-02-06] MEDS: NICOTINE POLACRILEX 2 MG GUM BC PRN ×2 (06:23→10:06)
[2017-02-06] MEDS: PRENATAL VITAMINS W/ FOLIC ACID TABLET (FP) PO SCH (10:04)
[2017-02-06] MEDS: ASPIRIN 81 MG CHEWABLE TABLETS PO SCH (10:04)
[2017-02-06] MEDS: NICOTINE 21 MG/24 HOURS TOPICAL PATCH TD SCH (10:04)
[2017-02-06] MEDS: GABAPENTIN 400 MG CAPSULE (FP) PO SCH ×2 (10:04→21:05)
[2017-02-06] MEDS: MAGNESIUM CITRATE 300 ML BOTTLE PO PRN (10:05)
[2017-02-06] MEDS: traZODone HCL 50 MG TABLET (FP) PO SCH (21:05)
[2017-02-06] MEDS: THIAMINE HCL 100 MG TABLET (FP) PO SCH (21:05)
[2017-02-07] MEDS ORDERED: METHADONE HCL 40 MG DISPERSABLE TABLET ONE (03:24)
[2017-02-07] MEDS ORDERED: METHADONE HCL 10 MG TABLET ONE (03:24)
[2017-02-07] MEDS: METHADONE 120 MG, METHADONE 20 MG PO SCH (06:08)
[2017-02-07] MEDS: NICOTINE 21 MG/24 HOURS TOPICAL PATCH TD SCH (10:09)
[2017-02-07] MEDS: PRENATAL VITAMINS W/ FOLIC ACID TABLET (FP) PO SCH (10:09)
[2017-02-07] MEDS: GABAPENTIN 400 MG CAPSULE (FP) PO SCH ×2 (10:09→21:17)
[2017-02-07] MEDS: NICOTINE POLACRILEX 2 MG GUM BC PRN (10:09)
[2017-02-07] MEDS: ASPIRIN 81 MG CHEWABLE TABLETS PO SCH (10:09)
[2017-02-07] MEDS: THIAMINE HCL 100 MG TABLET (FP) PO SCH (21:16)
[2017-02-07] MEDS: traZODone HCL 50 MG TABLET (FP) PO SCH (21:16)
[2017-02-07] MEDS: hydrOXYzine PAMOATE 50 MG CAPSULE (FP) PO PRN (21:17)
[2017-02-08] MEDS ORDERED: METHADONE HCL 40 MG DISPERSABLE TABLET ONE (04:46)
[2017-02-08] MEDS ORDERED: METHADONE HCL 10 MG TABLET ONE (04:46)
[2017-02-08] MEDS: METHADONE 120 MG, METHADONE 20 MG PO SCH (06:28)
[2017-02-08] MEDS: NICOTINE POLACRILEX 2 MG GUM BC PRN ×3 (06:30→21:12)
[2017-02-08] MEDS: GABAPENTIN 400 MG CAPSULE (FP) PO SCH ×2 (10:08→21:12)
[2017-02-08] MEDS: PRENATAL VITAMINS W/ FOLIC ACID TABLET (FP) PO SCH (10:08)
[2017-02-08] MEDS: ASPIRIN 81 MG CHEWABLE TABLETS PO SCH (10:08)
[2017-02-08] MEDS: NICOTINE 21 MG/24 HOURS TOPICAL PATCH TD SCH (10:09)
[2017-02-08] MEDS: hydrOXYzine PAMOATE 50 MG CAPSULE (FP) PO PRN (21:11)
[2017-02-08] MEDS: traZODone HCL 50 MG TABLET (FP) PO SCH (21:11)
[2017-02-08] MEDS: THIAMINE HCL 100 MG TABLET (FP) PO SCH (21:11)
[2017-02-09] MEDS ORDERED: METHADONE HCL 40 MG DISPERSABLE TABLET ONE (05:26)
[2017-02-09] MEDS ORDERED: METHADONE HCL 10 MG TABLET ONE (05:26)
[2017-02-09] MEDS: METHADONE 120 MG, METHADONE 20 MG PO SCH (06:13)
[2017-02-09] MEDS: NICOTINE POLACRILEX 2 MG GUM BC PRN ×2 (06:15→10:41)
[2017-02-09] MEDS: GABAPENTIN 400 MG CAPSULE (FP) PO SCH ×2 (10:41→21:05)
[2017-02-09] MEDS: NICOTINE 21 MG/24 HOURS TOPICAL PATCH TD SCH (10:41)
[2017-02-09] MEDS: ASPIRIN 81 MG CHEWABLE TABLETS PO SCH (10:41)
[2017-02-09] MEDS: PRENATAL VITAMINS W/ FOLIC ACID TABLET (FP) PO SCH (10:41)
[2017-02-09] MEDS: traZODone HCL 50 MG TABLET (FP) PO SCH (21:04)
[2017-02-09] MEDS: THIAMINE HCL 100 MG TABLET (FP) PO SCH (21:04)
[2017-02-10] MEDS ORDERED: METHADONE HCL 40 MG DISPERSABLE TABLET ONE (03:02)
[2017-02-10] MEDS ORDERED: METHADONE HCL 10 MG TABLET ONE (03:02)
[2017-02-10] MEDS: METHADONE 120 MG, METHADONE 20 MG PO SCH (06:19)
[2017-02-10] MEDS: NICOTINE POLACRILEX 2 MG GUM BC PRN (06:21)
[2017-02-10] MEDS: ASPIRIN 81 MG CHEWABLE TABLETS PO SCH (10:17)
[2017-02-10] MEDS: GABAPENTIN 400 MG CAPSULE (FP) PO SCH ×2 (10:17→21:05)
[2017-02-10] MEDS: PRENATAL VITAMINS W/ FOLIC ACID TABLET (FP) PO SCH (10:18)
[2017-02-10] MEDS: NICOTINE 21 MG/24 HOURS TOPICAL PATCH TD SCH (10:18)
[2017-02-10] MEDS: THIAMINE HCL 100 MG TABLET (FP) PO SCH (21:05)
[2017-02-10] MEDS: traZODone HCL 50 MG TABLET (FP) PO SCH (21:05)
[2017-02-11] MEDS ORDERED: METHADONE HCL 10 MG TABLET ONE (03:16)
[2017-02-11] MEDS ORDERED: METHADONE HCL 40 MG DISPERSABLE TABLET ONE (03:16)
[2017-02-11] MEDS: METHADONE 120 MG, METHADONE 20 MG PO SCH (06:35)
[2017-02-11] MEDS: NICOTINE POLACRILEX 2 MG GUM BC PRN ×2 (06:37→10:13)
[2017-02-11] MEDS: ASPIRIN 81 MG CHEWABLE TABLETS PO SCH (10:12)
[2017-02-11] MEDS: GABAPENTIN 400 MG CAPSULE (FP) PO SCH ×2 (10:12→21:04)
[2017-02-11] MEDS: PRENATAL VITAMINS W/ FOLIC ACID TABLET (FP) PO SCH (10:12)
[2017-02-11] MEDS: NICOTINE 21 MG/24 HOURS TOPICAL PATCH TD SCH (10:12)
[2017-02-11] MEDS: THIAMINE HCL 100 MG TABLET (FP) PO SCH (21:04)
[2017-02-11] MEDS: traZODone HCL 50 MG TABLET (FP) PO SCH (21:04)
[2017-02-12] MEDS ORDERED: METHADONE HCL 10 MG TABLET ONE (05:58)
[2017-02-12] MEDS ORDERED: METHADONE HCL 40 MG DISPERSABLE TABLET ONE (05:59)
[2017-02-12] MEDS: METHADONE 120 MG, METHADONE 20 MG PO SCH (06:05)
[2017-02-12] MEDS: NICOTINE POLACRILEX 2 MG GUM BC PRN ×2 (06:08→10:10)
[2017-02-12] MEDS: ASPIRIN 81 MG CHEWABLE TABLETS PO SCH (10:10)
[2017-02-12] MEDS: NICOTINE 21 MG/24 HOURS TOPICAL PATCH TD SCH (10:10)
[2017-02-12] MEDS: PRENATAL VITAMINS W/ FOLIC ACID TABLET (FP) PO SCH (10:10)
[2017-02-12] MEDS: GABAPENTIN 400 MG CAPSULE (FP) PO SCH ×2 (10:10→21:02)
[2017-02-12] MEDS: THIAMINE HCL 100 MG TABLET (FP) PO SCH (21:02)
[2017-02-12] MEDS: traZODone HCL 50 MG TABLET (FP) PO SCH (21:02)
[2017-02-13] MEDS ORDERED: METHADONE HCL 40 MG DISPERSABLE TABLET ONE (03:21)
[2017-02-13] MEDS ORDERED: METHADONE HCL 10 MG TABLET ONE (03:21)
[2017-02-13] MEDS: METHADONE 120 MG, METHADONE 20 MG PO SCH (06:15)
[2017-02-13] MEDS: NICOTINE POLACRILEX 2 MG GUM BC PRN ×2 (06:19→10:18)
[2017-02-13] MEDS: PRENATAL VITAMINS W/ FOLIC ACID TABLET (FP) PO SCH (10:16)
[2017-02-13] MEDS: GABAPENTIN 400 MG CAPSULE (FP) PO SCH ×2 (10:16→21:08)
[2017-02-13] MEDS: ASPIRIN 81 MG CHEWABLE TABLETS PO SCH (10:16)
[2017-02-13] MEDS: NICOTINE 21 MG/24 HOURS TOPICAL PATCH TD SCH (10:17)
[2017-02-13] MEDS: traZODone HCL 50 MG TABLET (FP) PO SCH (21:08)
[2017-02-13] MEDS: THIAMINE HCL 100 MG TABLET (FP) PO SCH (21:08)
[2017-02-14] MEDS: NICOTINE POLACRILEX 2 MG GUM BC PRN ×2 (06:24→10:07)
[2017-02-14] MEDS ORDERED: METHADONE HCL 10 MG TABLET PO SCH (06:30)
[2017-02-14] MEDS ORDERED: METHADONE HCL 10 MG TABLET ONE (06:35)
[2017-02-14] MEDS ORDERED: METHADONE HCL 40 MG DISPERSABLE TABLET ONE (06:36)
[2017-02-14] MEDS: METHADONE 120 MG, METHADONE 20 MG PO SCH (06:36)
[2017-02-14] MEDS: ASPIRIN 81 MG CHEWABLE TABLETS PO SCH (10:05)
[2017-02-14] MEDS: GABAPENTIN 400 MG CAPSULE (FP) PO SCH ×2 (10:05→21:06)
[2017-02-14] MEDS: PRENATAL VITAMINS W/ FOLIC ACID TABLET (FP) PO SCH (10:05)
[2017-02-14] MEDS: NICOTINE 21 MG/24 HOURS TOPICAL PATCH TD SCH (10:05)
[2017-02-14] MEDS: MAGNESIUM HYDROX 2400MG/30ML ORAL SUSPENSION 30 ML CUP PO PRN (10:06)
[2017-02-14] MEDS: CYANOCOBALAMIN (VITAMIN B-12) 100 MCG TABLET PO SCH (15:49)
[2017-02-14] MEDS: THIAMINE HCL 100 MG TABLET (FP) PO SCH (21:05)
[2017-02-14] MEDS: traZODone HCL 50 MG TABLET (FP) PO SCH (21:05)
[2017-02-15] MEDS ORDERED: METHADONE HCL 40 MG DISPERSABLE TABLET ONE (03:26)
[2017-02-15] MEDS ORDERED: METHADONE HCL 10 MG TABLET ONE (03:26)
[2017-02-15] MEDS: METHADONE 120 MG, METHADONE 20 MG PO SCH (06:23)
[2017-02-15] MEDS: NICOTINE POLACRILEX 2 MG GUM BC PRN ×2 (06:25→10:16)
[2017-02-15] MEDS: GABAPENTIN 400 MG CAPSULE (FP) PO SCH ×2 (10:13→21:05)
[2017-02-15] MEDS: CYANOCOBALAMIN (VITAMIN B-12) 100 MCG TABLET PO SCH (10:13)
[2017-02-15] MEDS: ASPIRIN 81 MG CHEWABLE TABLETS PO SCH (10:13)
[2017-02-15] MEDS: NICOTINE 21 MG/24 HOURS TOPICAL PATCH TD SCH (10:13)
[2017-02-15] MEDS: PRENATAL VITAMINS W/ FOLIC ACID TABLET (FP) PO SCH (10:13)
[2017-02-15] MEDS: MAGNESIUM CITRATE 300 ML BOTTLE PO PRN (10:15)
[2017-02-15] MEDS: traZODone HCL 50 MG TABLET (FP) PO SCH (21:05)
[2017-02-15] MEDS: THIAMINE HCL 100 MG TABLET (FP) PO SCH (21:05)
[2017-02-16] MEDS ORDERED: METHADONE HCL 10 MG TABLET ONE (05:06)
[2017-02-16] MEDS ORDERED: METHADONE HCL 40 MG DISPERSABLE TABLET ONE (05:06)
[2017-02-16] MEDS: METHADONE 120 MG, METHADONE 20 MG PO SCH (06:09)
[2017-02-16] MEDS: NICOTINE POLACRILEX 2 MG GUM BC PRN ×2 (06:10→10:16)
[2017-02-16] MEDS: PRENATAL VITAMINS W/ FOLIC ACID TABLET (FP) PO SCH (10:14)
[2017-02-16] MEDS: NICOTINE 21 MG/24 HOURS TOPICAL PATCH TD SCH (10:14)
[2017-02-16] MEDS: ASPIRIN 81 MG CHEWABLE TABLETS PO SCH (10:14)
[2017-02-16] MEDS: CYANOCOBALAMIN (VITAMIN B-12) 100 MCG TABLET PO SCH (10:14)
[2017-02-16] MEDS: GABAPENTIN 400 MG CAPSULE (FP) PO SCH ×2 (10:14→21:07)
[2017-02-16] MEDS ORDERED: DOCUSATE SODIUM 100 MG CAPSULE (FP) PO ONE (16:10)
[2017-02-16] MEDS ORDERED: SENNOSIDES 8.6MG TABLET (FP) PO ONE (16:11)
[2017-02-16] MEDS: THIAMINE HCL 100 MG TABLET (FP) PO SCH (21:05)
[2017-02-16] MEDS: traZODone HCL 50 MG TABLET (FP) PO SCH (21:05)
[2017-02-16] MEDS: SENNOSIDES 8.6MG TABLET (FP) PO SCH (21:06)
[2017-02-16] MEDS: DOCUSATE SODIUM 100 MG CAPSULE (FP) PO SCH (21:06)
[2017-02-17] MEDS ORDERED: METHADONE HCL 40 MG DISPERSABLE TABLET ONE (05:14)
[2017-02-17] MEDS ORDERED: METHADONE HCL 10 MG TABLET ONE (05:14)
[2017-02-17] MEDS: METHADONE 120 MG, METHADONE 20 MG PO SCH (05:58)
[2017-02-17] MEDS: NICOTINE POLACRILEX 2 MG GUM BC PRN ×2 (06:03→10:04)
[2017-02-17] MEDS: NICOTINE 21 MG/24 HOURS TOPICAL PATCH TD SCH (10:03)
[2017-02-17] MEDS: GABAPENTIN 400 MG CAPSULE (FP) PO SCH ×2 (10:03→21:08)
[2017-02-17] MEDS: ASPIRIN 81 MG CHEWABLE TABLETS PO SCH (10:03)
[2017-02-17] MEDS: CYANOCOBALAMIN (VITAMIN B-12) 100 MCG TABLET PO SCH (10:03)
[2017-02-17] MEDS: PRENATAL VITAMINS W/ FOLIC ACID TABLET (FP) PO SCH (10:03)
[2017-02-17] MEDS: THIAMINE HCL 100 MG TABLET (FP) PO SCH (21:06)
[2017-02-17] MEDS: DOCUSATE SODIUM 100 MG CAPSULE (FP) PO SCH (21:06)
[2017-02-17] MEDS: traZODone HCL 50 MG TABLET (FP) PO SCH (21:07)
[2017-02-17] MEDS: SENNOSIDES 8.6MG TABLET (FP) PO SCH (21:08)
[2017-02-18] MEDS ORDERED: METHADONE HCL 10 MG TABLET ONE (03:46)
[2017-02-18] MEDS ORDERED: METHADONE HCL 40 MG DISPERSABLE TABLET ONE (03:47)
[2017-02-18] MEDS: METHADONE 120 MG, METHADONE 20 MG PO SCH (06:04)
[2017-02-18] MEDS: NICOTINE POLACRILEX 2 MG GUM BC PRN ×2 (06:05→10:08)
[2017-02-18] MEDS: GABAPENTIN 400 MG CAPSULE (FP) PO SCH ×2 (10:07→21:06)
[2017-02-18] MEDS: NICOTINE 21 MG/24 HOURS TOPICAL PATCH TD SCH (10:07)
[2017-02-18] MEDS: PRENATAL VITAMINS W/ FOLIC ACID TABLET (FP) PO SCH (10:07)
[2017-02-18] MEDS: ASPIRIN 81 MG CHEWABLE TABLETS PO SCH (10:07)
[2017-02-18] MEDS: CYANOCOBALAMIN (VITAMIN B-12) 100 MCG TABLET PO SCH (10:07)
[2017-02-18] MEDS: traZODone HCL 50 MG TABLET (FP) PO SCH (21:05)
[2017-02-18] MEDS: DOCUSATE SODIUM 100 MG CAPSULE (FP) PO SCH (21:05)
[2017-02-18] MEDS: THIAMINE HCL 100 MG TABLET (FP) PO SCH (21:05)
[2017-02-18] MEDS: SENNOSIDES 8.6MG TABLET (FP) PO SCH (21:06)
[2017-02-19] MEDS ORDERED: METHADONE HCL 10 MG TABLET ONE (04:12)
[2017-02-19] MEDS ORDERED: METHADONE HCL 40 MG DISPERSABLE TABLET ONE (04:13)
[2017-02-19] MEDS: METHADONE 120 MG, METHADONE 20 MG PO SCH (06:20)
[2017-02-19] MEDS: NICOTINE 21 MG/24 HOURS TOPICAL PATCH TD SCH (10:02)
[2017-02-19] MEDS: CYANOCOBALAMIN (VITAMIN B-12) 100 MCG TABLET PO SCH (10:02)
[2017-02-19] MEDS: PRENATAL VITAMINS W/ FOLIC ACID TABLET (FP) PO SCH (10:02)
[2017-02-19] MEDS: GABAPENTIN 400 MG CAPSULE (FP) PO SCH ×2 (10:02→21:09)
[2017-02-19] MEDS: ASPIRIN 81 MG CHEWABLE TABLETS PO SCH (10:02)
[2017-02-19] MEDS: NICOTINE POLACRILEX 2 MG GUM BC PRN (10:04)
[2017-02-19] MEDS: traZODone HCL 50 MG TABLET (FP) PO SCH (21:07)
[2017-02-19] MEDS: THIAMINE HCL 100 MG TABLET (FP) PO SCH (21:07)
[2017-02-19] MEDS: DOCUSATE SODIUM 100 MG CAPSULE (FP) PO SCH (21:09)
[2017-02-19] MEDS: SENNOSIDES 8.6MG TABLET (FP) PO SCH (21:09)
[2017-02-20] MEDS ORDERED: METHADONE HCL 40 MG DISPERSABLE TABLET ONE (04:06)
[2017-02-20] MEDS ORDERED: METHADONE HCL 10 MG TABLET ONE (04:06)
[2017-02-20] MEDS: NICOTINE POLACRILEX 2 MG GUM BC PRN ×2 (06:24→10:10)
[2017-02-20] MEDS: METHADONE 120 MG, METHADONE 20 MG PO SCH (06:24)
[2017-02-20] MEDS ORDERED: METHADONE 120 MG, METHADONE 20 MG PO SCH (06:45)
[2017-02-20] MEDS: ASPIRIN 81 MG CHEWABLE TABLETS PO SCH (10:10)
[2017-02-20] MEDS: NICOTINE 21 MG/24 HOURS TOPICAL PATCH TD SCH (10:10)
[2017-02-20] MEDS: CYANOCOBALAMIN (VITAMIN B-12) 100 MCG TABLET PO SCH (10:10)
[2017-02-20] MEDS: PRENATAL VITAMINS W/ FOLIC ACID TABLET (FP) PO SCH (10:10)
[2017-02-20] MEDS: GABAPENTIN 400 MG CAPSULE (FP) PO SCH ×2 (10:10→21:08)
[2017-02-20] MEDS: THIAMINE HCL 100 MG TABLET (FP) PO SCH (21:07)
[2017-02-20] MEDS: traZODone HCL 50 MG TABLET (FP) PO SCH (21:08)
[2017-02-20] MEDS: SENNOSIDES 8.6MG TABLET (FP) PO SCH (21:08)
[2017-02-20] MEDS: DOCUSATE SODIUM 100 MG CAPSULE (FP) PO SCH (21:08)
[2017-02-21] MEDS ORDERED: METHADONE HCL 10 MG TABLET ONE (05:54)
[2017-02-21] MEDS ORDERED: METHADONE HCL 40 MG DISPERSABLE TABLET ONE (05:54)
[2017-02-21] MEDS: METHADONE 120 MG, METHADONE 20 MG PO SCH (06:22)
[2017-02-21] MEDS: NICOTINE POLACRILEX 2 MG GUM BC PRN ×2 (06:26→10:24)
[2017-02-21] MEDS: ASPIRIN 81 MG CHEWABLE TABLETS PO SCH (10:22)
[2017-02-21] MEDS: PRENATAL VITAMINS W/ FOLIC ACID TABLET (FP) PO SCH (10:22)
[2017-02-21] MEDS: CYANOCOBALAMIN (VITAMIN B-12) 100 MCG TABLET PO SCH (10:22)
[2017-02-21] MEDS: NICOTINE 21 MG/24 HOURS TOPICAL PATCH TD SCH (10:23)
[2017-02-21] MEDS: GABAPENTIN 400 MG CAPSULE (FP) PO SCH ×2 (10:23→21:02)
[2017-02-21] MEDS: traZODone HCL 50 MG TABLET (FP) PO SCH (21:02)
[2017-02-21] MEDS: DOCUSATE SODIUM 100 MG CAPSULE (FP) PO SCH (21:02)
[2017-02-21] MEDS: SENNOSIDES 8.6MG TABLET (FP) PO SCH (21:02)
[2017-02-21] MEDS: THIAMINE HCL 100 MG TABLET (FP) PO SCH (21:03)
[2017-02-22] MEDS ORDERED: METHADONE HCL 10 MG TABLET ONE (02:17)
[2017-02-22] MEDS ORDERED: METHADONE HCL 40 MG DISPERSABLE TABLET ONE (02:18)
[2017-02-22] MEDS: METHADONE 120 MG, METHADONE 20 MG PO SCH (06:02)
[2017-02-22] MEDS: NICOTINE POLACRILEX 2 MG GUM BC PRN ×2 (06:05→10:33)
[2017-02-22] MEDS: CYANOCOBALAMIN (VITAMIN B-12) 100 MCG TABLET PO SCH (10:32)
[2017-02-22] MEDS: PRENATAL VITAMINS W/ FOLIC ACID TABLET (FP) PO SCH (10:32)
[2017-02-22] MEDS: NICOTINE 21 MG/24 HOURS TOPICAL PATCH TD SCH (10:32)
[2017-02-22] MEDS: ASPIRIN 81 MG CHEWABLE TABLETS PO SCH (10:32)
[2017-02-22] MEDS: GABAPENTIN 400 MG CAPSULE (FP) PO SCH ×2 (10:33→21:05)
[2017-02-22] MEDS: THIAMINE HCL 100 MG TABLET (FP) PO SCH (21:04)
[2017-02-22] MEDS: DOCUSATE SODIUM 100 MG CAPSULE (FP) PO SCH (21:05)
[2017-02-22] MEDS: traZODone HCL 100 MG TABLET (FP) PO SCH (21:05)
[2017-02-22] MEDS: SENNOSIDES 8.6MG TABLET (FP) PO SCH (21:05)
[2017-02-23] MEDS ORDERED: METHADONE HCL 10 MG TABLET ONE (04:41)
[2017-02-23] MEDS ORDERED: METHADONE HCL 40 MG DISPERSABLE TABLET ONE (04:41)
[2017-02-23] MEDS: METHADONE 120 MG, METHADONE 20 MG PO SCH (05:48)
[2017-02-23] MEDS: NICOTINE POLACRILEX 2 MG GUM BC PRN ×2 (06:42→10:14)
[2017-02-23] MEDS: GABAPENTIN 400 MG CAPSULE (FP) PO SCH ×2 (10:14→21:06)
[2017-02-23] MEDS: NICOTINE 21 MG/24 HOURS TOPICAL PATCH TD SCH (10:14)
[2017-02-23] MEDS: CYANOCOBALAMIN (VITAMIN B-12) 100 MCG TABLET PO SCH (10:14)
[2017-02-23] MEDS: PRENATAL VITAMINS W/ FOLIC ACID TABLET (FP) PO SCH (10:14)
[2017-02-23] MEDS: ASPIRIN 81 MG CHEWABLE TABLETS PO SCH (10:14)
[2017-02-23] MEDS: THIAMINE HCL 100 MG TABLET (FP) PO SCH (21:04)
[2017-02-23] MEDS: traZODone HCL 100 MG TABLET (FP) PO SCH (21:04)
[2017-02-23] MEDS: DOCUSATE SODIUM 100 MG CAPSULE (FP) PO SCH (21:05)
[2017-02-23] MEDS: SENNOSIDES 8.6MG TABLET (FP) PO SCH (21:06)
[2017-02-24] MEDS ORDERED: METHADONE HCL 10 MG TABLET ONE (03:57)
[2017-02-24] MEDS ORDERED: METHADONE HCL 40 MG DISPERSABLE TABLET ONE (03:58)
[2017-02-24] MEDS: METHADONE 120 MG, METHADONE 20 MG PO SCH (06:04)
[2017-02-24] MEDS: NICOTINE POLACRILEX 2 MG GUM BC PRN ×2 (06:06→10:24)
[2017-02-24] MEDS: ASPIRIN 81 MG CHEWABLE TABLETS PO SCH (10:20)
[2017-02-24] MEDS: PRENATAL VITAMINS W/ FOLIC ACID TABLET (FP) PO SCH (10:20)
[2017-02-24] MEDS: CYANOCOBALAMIN (VITAMIN B-12) 100 MCG TABLET PO SCH (10:20)
[2017-02-24] MEDS: NICOTINE 21 MG/24 HOURS TOPICAL PATCH TD SCH (10:21)
[2017-02-24] MEDS: GABAPENTIN 400 MG CAPSULE (FP) PO SCH ×2 (10:21→21:02)
[2017-02-24] MEDS: THIAMINE HCL 100 MG TABLET (FP) PO SCH (21:01)
[2017-02-24] MEDS: traZODone HCL 100 MG TABLET (FP) PO SCH (21:01)
[2017-02-24] MEDS: DOCUSATE SODIUM 100 MG CAPSULE (FP) PO SCH (21:02)
[2017-02-24] MEDS: SENNOSIDES 8.6MG TABLET (FP) PO SCH (21:02)
[2017-02-25] MEDS ORDERED: METHADONE HCL 40 MG DISPERSABLE TABLET ONE (03:36)
[2017-02-25] MEDS ORDERED: METHADONE HCL 10 MG TABLET ONE (03:36)
[2017-02-25] MEDS: METHADONE 120 MG, METHADONE 20 MG PO SCH (06:04)
[2017-02-25] MEDS: NICOTINE POLACRILEX 2 MG GUM BC PRN ×3 (06:05→21:03)
[2017-02-25] MEDS: CYANOCOBALAMIN (VITAMIN B-12) 100 MCG TABLET PO SCH (10:11)
[2017-02-25] MEDS: ASPIRIN 81 MG CHEWABLE TABLETS PO SCH (10:11)
[2017-02-25] MEDS: GABAPENTIN 400 MG CAPSULE (FP) PO SCH ×2 (10:11→21:04)
[2017-02-25] MEDS: NICOTINE 21 MG/24 HOURS TOPICAL PATCH TD SCH (10:12)
[2017-02-25] MEDS: PRENATAL VITAMINS W/ FOLIC ACID TABLET (FP) PO SCH (10:12)
[2017-02-25] MEDS: traZODone HCL 100 MG TABLET (FP) PO SCH (21:02)
[2017-02-25] MEDS: THIAMINE HCL 100 MG TABLET (FP) PO SCH (21:02)
[2017-02-25] MEDS: DOCUSATE SODIUM 100 MG CAPSULE (FP) PO SCH (21:03)
[2017-02-25] MEDS: SENNOSIDES 8.6MG TABLET (FP) PO SCH (21:04)
[2017-02-26] MEDS ORDERED: METHADONE HCL 10 MG TABLET ONE (05:16)
[2017-02-26] MEDS ORDERED: METHADONE HCL 40 MG DISPERSABLE TABLET ONE (05:16)
[2017-02-26] MEDS: METHADONE 120 MG, METHADONE 20 MG PO SCH (06:24)
[2017-02-26] MEDS: NICOTINE POLACRILEX 2 MG GUM BC PRN ×2 (06:27→09:59)
[2017-02-26] MEDS: GABAPENTIN 400 MG CAPSULE (FP) PO SCH ×2 (09:57→21:10)
[2017-02-26] MEDS: PRENATAL VITAMINS W/ FOLIC ACID TABLET (FP) PO SCH (09:57)
[2017-02-26] MEDS: CYANOCOBALAMIN (VITAMIN B-12) 100 MCG TABLET PO SCH (09:57)
[2017-02-26] MEDS: ASPIRIN 81 MG CHEWABLE TABLETS PO SCH (09:58)
[2017-02-26] MEDS: NICOTINE 21 MG/24 HOURS TOPICAL PATCH TD SCH (09:59)
[2017-02-26] MEDS: DOCUSATE SODIUM 100 MG CAPSULE (FP) PO SCH (21:10)
[2017-02-26] MEDS: THIAMINE HCL 100 MG TABLET (FP) PO SCH (21:10)
[2017-02-26] MEDS: traZODone HCL 100 MG TABLET (FP) PO SCH (21:10)
[2017-02-26] MEDS: SENNOSIDES 8.6MG TABLET (FP) PO SCH (21:10)
[2017-02-26] MEDS: diphenhydrAMINE HCL 50 MG CAPSULE PO PRN (21:31)
[2017-02-27] MEDS ORDERED: METHADONE HCL 40 MG DISPERSABLE TABLET ONE (05:57)
[2017-02-27] MEDS ORDERED: METHADONE HCL 10 MG TABLET ONE (05:57)
[2017-02-27] MEDS: METHADONE 120 MG, METHADONE 20 MG PO SCH (06:29)
[2017-02-27] MEDS: NICOTINE POLACRILEX 2 MG GUM BC PRN ×2 (06:30→10:11)
[2017-02-27] MEDS: CYANOCOBALAMIN (VITAMIN B-12) 100 MCG TABLET PO SCH (10:08)
[2017-02-27] MEDS: GABAPENTIN 400 MG CAPSULE (FP) PO SCH ×2 (10:08→21:03)
[2017-02-27] MEDS: PRENATAL VITAMINS W/ FOLIC ACID TABLET (FP) PO SCH (10:08)
[2017-02-27] MEDS: ASPIRIN 81 MG CHEWABLE TABLETS PO SCH (10:08)
[2017-02-27] MEDS: NICOTINE 21 MG/24 HOURS TOPICAL PATCH TD SCH (10:11)
[2017-02-27] MEDS: THIAMINE HCL 100 MG TABLET (FP) PO SCH (21:01)
[2017-02-27] MEDS: traZODone HCL 100 MG TABLET (FP) PO SCH (21:01)
[2017-02-27] MEDS: diphenhydrAMINE HCL 50 MG CAPSULE PO PRN (21:02)
[2017-02-27] MEDS: DOCUSATE SODIUM 100 MG CAPSULE (FP) PO SCH (21:03)
[2017-02-27] MEDS: SENNOSIDES 8.6MG TABLET (FP) PO SCH (21:03)
[2017-02-28] MEDS ORDERED: METHADONE HCL 40 MG DISPERSABLE TABLET ONE (03:04)
[2017-02-28] MEDS ORDERED: METHADONE HCL 10 MG TABLET ONE (03:04)
[2017-02-28] MEDS: METHADONE 120 MG, METHADONE 20 MG PO SCH (06:04)
[2017-02-28] MEDS: NICOTINE POLACRILEX 2 MG GUM BC PRN ×2 (06:05→10:03)
--- NOTE | 2017-02-28 06:34 | PN ---
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 and Substance-Induced Anxiety disorder ROS: Seizure Disorder, Kyphosis deformity of spine, HTN, Hep C, Lower extremily neuropathy Current Medications: Active Medications Generic Name Dose Route Start Last Admin Trade Name Freq PRN Reason Stop Dose Admin Acetaminophen 650 mg 01/31/17 20:38 Tylenol - PO Q4H PRN PAIN Al Hydroxide/Mg Hydroxide 30 ml 01/31/17 20:38 Mylanta Oral Suspension - PO Q6H PRN DYSPEPSIA Aspirin 81 mg 02/01/17 10:00 02/27/17 10:08 Asa - PO 81 mg DAILY HEATHER Administration Cyanocobalamin 100 mcg 02/14/17 14:00 02/27/17 10:08 Vitamin B12 - PO 100 mcg DAILY HEATHER Administration Diphenhydramine HCl 50 mg 01/31/17 20:38 02/27/17 21:02 Benadryl - PO 50 mg HSMR1 PRN Administration INSOMNIA Docusate Sodium 300 mg 02/16/17 22:00 02/27/17 21:03 Colace - PO Not Given HS HEATHER Eucalyptus/Menthol/Phenol/Sorbitol 1 each 01/31/17 20:38 Cepastat Lozenge - MM Q4H PRN SORE THROAT Gabapentin 400 mg 02/01/17 11:00 02/27/17 21:03 Neurontin - PO Not Given BID HEATHER Guaifenesin 10 ml 01/31/17 20:38 Robitussin Dm - PO Q6H PRN COUGH Hydroxyzine Pamoate 50 mg 01/31/17 20:38 02/08/17 21:11 Vistaril - PO 50 mg Q4H PRN Administration AGITATION Ibuprofen 400 mg 01/31/17 20:38 Motrin - PO Q6H PRN SEVERE PAIN Loperamide HCl 4 mg 01/31/17 20:38 Imodium - PO Q6H PRN DIARRHEA Magnesium Citrate 300 ml 01/31/17 20:38 02/15/17 10:15 Citroma - PO 300 ml Q48H PRN Administration CONSTIPATION Magnesium Hydroxide 30 ml 01/31/17 20:38 02/14/17 10:06 Milk Of Magnesia - PO 30 ml DAILY PRN Administration CONSTIPATION Methadone HCl 120 mg/ 140 mg 02/27/17 06:00 02/28/17 06:04 Methadone HCl 20 mg PO 140 mg DAILY@0600 HEATHER Administration Nicotine 21 mg 01/31/17 20:45 02/27/17 10:11 Nicoderm Patch - TD Not Given DAILY HEATHER Nicotine Polacrilex 2 mg 01/31/17 20:38 02/28/17 06:05 Nicorette Gum - BC 2 mg Q2H PRN Administration NICOTINE REPLACEMENT RX Multivit/Folic Acid/Iron 1 tab 02/01/17 10:00 02/27/17 10:08 Vitamins (Sjr) - PO 1 tab DAILY HEATHER Administration Pseudoephedrine/Triprolidine 1 combo 01/31/17 20:38 Actifed - PO TID PRN NASAL CONGESTION Senna 2 tab 02/16/17 22:00 02/27/17 21:03 Senna - PO Not Given HS HEATHER Thiamine HCl 100 mg 01/31/17 22:00 02/27/17 21:01 Vitamin B1 - PO 100 mg HS HEATHER Administration Trazodone HCl 100 mg 02/22/17 22:00 02/27/17 21:01 Desyrel - PO 100 mg HS HEATHER Administration Current Side Effect: No Lab tests ordered: Yes Lab tests reviewed: Yes Provider note:: Patient will complete this program on 03/01/17. He has met his treatment goals and will continue to address his issues in outpatient treatment at [facility] at [address] [place] [address]. Told show card writer that from his participation in this program, he has learned the importance of establising a sober support network in order to maintain abstinence. He responded well to Gabapentin 400 m g po BID and Trazadone 50 mg po HS. Scripts fro 30 days supply of medications will be electronically transmitted to [facility] at [address] [place] [address]. He is stable for discharged on 03/01/17 Total face to face time:: 25 Mental Status Exam - Mental Status Exam Alert and Oriented to: Time, Place, Person Cognitive Function: Fair Patient Appearance: Well Groomed Mood: Hopeful, Euthymic Affect: Appropriate Patient Behavior: Cooperative Speech Pattern: Clear Voice Loudness: Normal Thought Process: Intact, Goal Oriented Thought Disorder: Not Present Hallucinations: Denies Suicidal Ideation: Denies Homicidal Ideation: Denies Insight/Judgement: Fair Sleep: Fair Appetite: Good Muscle strength/Tone: Normal Gait/Station: Spastic Psychiatric Treatment Plan - Problem List (1) Sedative hypnotic or anxiolytic dependence Current Visit: Yes (2) Opioid dependence on agonist therapy Current Visit: No (3) Nicotine dependence Current Visit: Yes (4) Substance-induced anxiety disorder Current Visit: No (5) HTN (hypertension) Current Visit: Yes (6) Kyphosis deformity of spine Current Visit: Yes Comment: . (7) Seizure disorder Current Visit: Yes Comment: R/T BENZO WITHDRAWAL (8) Hepatitis C Current Visit: No (9) Lower extremity neuropathy Current Visit: No Qualifiers: Laterality: bilateral Qualified Code(s): G57.93 - Unspecified mononeuropathy of bilateral lower limbs; G57.93 - Unspecified mononeuropathy of bilateral lower limbs Comment: . Initial treatment plan: Patient will be discharged tomorrow and referred back to [facility] for outpatient treatment
[2017-02-28] MEDS: NICOTINE 21 MG/24 HOURS TOPICAL PATCH TD SCH (10:03)
[2017-02-28] MEDS: CYANOCOBALAMIN (VITAMIN B-12) 100 MCG TABLET PO SCH (10:03)
[2017-02-28] MEDS: GABAPENTIN 400 MG CAPSULE (FP) PO SCH ×2 (10:03→21:08)
[2017-02-28] MEDS: ASPIRIN 81 MG CHEWABLE TABLETS PO SCH (10:03)
[2017-02-28] MEDS: PRENATAL VITAMINS W/ FOLIC ACID TABLET (FP) PO SCH (10:03)
[2017-02-28] MEDS: THIAMINE HCL 100 MG TABLET (FP) PO SCH (21:07)
[2017-02-28] MEDS: traZODone HCL 100 MG TABLET (FP) PO SCH (21:07)
[2017-02-28] MEDS: SENNOSIDES 8.6MG TABLET (FP) PO SCH (21:08)
[2017-02-28] MEDS: DOCUSATE SODIUM 100 MG CAPSULE (FP) PO SCH (21:08)
[2017-03-01] MEDS ORDERED: METHADONE HCL 10 MG TABLET ONE (04:17)
[2017-03-01] MEDS ORDERED: METHADONE HCL 40 MG DISPERSABLE TABLET ONE (04:17)
[2017-03-01] MEDS: METHADONE 120 MG, METHADONE 20 MG PO SCH (06:16)
[2017-03-01 07:05] VITALS: BP 143/78; PULSE 68; TEMP 97
== END 2017-03-01 09:25 | disposition home or self-care (01) | DRG 895 ==
LOC: YASAS 15:31 → Y3W 18:52
PROVIDERS: ADMIT Psychiatry & Neurology Psychiatry; ATTEND Psychiatry & Neurology Psychiatry
PROC: HZ42ZZZ Group Counseling for Substance Abuse Treatment, Cognitive-Behavioral (ICD-10-PCS; principal; 2017-01-31)
DX: F11.20 Opioid dependence, uncomplicated (principal); F13.20 Sedative, hypnotic or anxiolytic dependence, uncomplicated; F19.280 Other psychoactive substance dependence with psychoactive substance-induced anxiety disorder; F17.210 Nicotine dependence, cigarettes, uncomplicated; F31.9 Bipolar disorder, unspecified; G40.909 Epilepsy, unspecified, not intractable, without status epilepticus; B18.2 Chronic viral hepatitis C; G57.93 Unspecified mononeuropathy of bilateral lower limbs; M40.209 Unspecified kyphosis, site unspecified; Z91.5 Personal history of self-harm
CPT/HCPCS: 36415; 80053; 81003; 81015; 85027; 86593; 86803; 87522; 93005; 93010

== ENCOUNTER 2017-08-08 18:35 | Inpatient (IN) | payer OTHER ==
[2017-08-08 19:04] VITALS: BMI 25.8
[2017-08-08] MEDS ORDERED: MELATONIN 5 MG TABLETS PO PRN (22:00)
--- NOTE | 2017-08-08 22:31 | HP ---
Admission [facility] Chief Complaint: I am here for rehab Allergies/Adverse Reactions: Allergies Allergy/AdvReac Type Severity Reaction Status Date / Time penicillin G Allergy Severe Rash Verified 08/08/17 19:14 phenytoin sodium Allergy Mild Verified 08/08/17 19:14 [From Dilantin] phenytoin sodium extended Allergy Mild Verified 08/08/17 19:14 [From Dilantin] History of Present Illness: 72 Y.O. male with history of benzodiazepine and nicotine dependence is here seeking rehab. Patient reports completed detoxx at [facility] -08/08/17. PMHX: scoliosis ambulates with cane, bipolar with manic depression.Reports hx of seizure related benzo use, last seizure 10 years ago. Currently on [address], currently on methadone 140 mg, last medicated 08/08/17, dose pending verification. Longest period of sobriety 6 months. Denies suicidal / homicidal ideation or suicide attempts. Exam Limitations: No Limitations - Ebola screening Have you been sick,other than usual withdrawal symptoms: No - Review of Systems Constitutional: Changes in sleep, Weakness (bilateral lower extremity), Unintentional Wgt. Loss (loss 7 lbs) EENT: reports: Dental Problems (decay teeth), Other (needs reading glasses) Respiratory: reports: No Symptoms reported Cardiac: reports: No Symptoms Reported GI: reports: Constipated, Poor Fluid Intake : reports: No Symptoms Reported Musculoskeletal: reports: Back Pain, Joint Pain (bilateral knee) Integumentary: reports: No Symptoms Reported Neuro: reports: Weakness Hematology: reports: No Symptoms Reported Patient History - Patient Medical History Hx Anemia: No Hx Asthma: No Hx Chronic Obstructive Pulmonary Disease (COPD): No Hx Cancer: No Hx Cardiac Disorders: No Hx Congestive Heart Failure: No Hx Hypertension: Yes Hx Hypercholesterolemia: No Hx Pacemaker: No HX Cerebrovascular Accident: No Hx Seizures: Yes (10 years ago ) Hx Dementia: No Hx Diabetes: No Hx Gastrointestinal Disorders: No Hx Liver Disease: No Hx Genitourinary Disorders: No Hx Sexually Transmitted Disorders: No Hx Renal Disease (ESRD): Yes (hx of kidney stones ) Hx Thyroid Disease: No Hx Human Immunodeficiency Virus (HIV): No Hx Hepatitis C: Yes Hx Depression: No Hx Suicide Attempt: No Hx Bipolar Disorder: Yes Hx Schizophrenia: No Other Medical History: DVT b/t lower extremities, 2005 - Patient Surgical History Past Surgical History: Yes Hx Neurologic Surgery: No Hx Cataract Extraction: No Hx Cardiac Surgery: No Hx Lung Surgery: No Hx Breast Surgery: No Hx Breast Biopsy: No Hx Abdominal Surgery: Yes (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) Hx Appendectomy: No Hx Cholecystectomy: No Hx Genitourinary Surgery: No Hx Section: No Hx Orthopedic Surgery: No Hx Hysterectomy: No Anesthesia Reaction: No - PPD History Results: CXR 2016 NEG PPD to be Administered?: No - Reproductive History Patient is a Female of Child Bearing Age (11 -55 yrs old): No - Smoking Cessation Smoking history: Current every day smoker Have you smoked in the past 12 months: Yes Aproximately how many cigarettes per day: 15 Cigars Per Day: 0 Hx Chewing Tobacco Use: No Initiated information on smoking cessation: Yes 'Breaking Loose' booklet given: 08/08/17 - Substance & Tx. History Hx Alcohol Use: No Hx Substance Use: Yes Substance Use Type: Tranquilizers Hx Substance Use Treatment: Yes (Last detox [facility] 08/02/17 -08/08) Family Disease History - Family Disease History Family Disease History: Diabetes: Father (heroin dependence ), Other: Father, Mother (alcohol dependence ), Sister (OVERDOSE) Admission Physical Exam S - Vital Signs Vital Signs: Vital Signs - 24 hr 08/08/17 19:02 Temperature 98.2 F Pulse Rate 67 Respiratory 18 Rate Blood Pressure 140/90 - Physical General Appearance: Yes: Disheveled, Anxious HEENTM: Yes: EOMI, Hearing grossly Normal, Normal ENT Inspection, Pharynx Normal , Tm's normal, Other (poor dentation) Respiratory: Yes: Chest Non-Tender, Lungs Clear, Normal Breath Sounds, No Respiratory Distress, No Accessory Muscle Use Neck: Yes: No masses,lesions,Nodules, Trachea in good position Breast: Yes: Breast Exam Deferred Cardiology: Yes: Regular Rhythm, Regular Rate Abdominal: Yes: Normal Bowel Sounds, Non Tender, Flat, Soft Genitourinary: Yes: Within Normal Limits Back: Yes: Normal Inspection Musculoskeletal: Yes: Back pain, Other (khyphosis, unsteady gait) Extremities: Yes: Normal Capillary Refill, Normal Inspection, Normal Range of Motion, Non-Tender Neurological: Yes: affiliate marketing coordinator II-XII NML intact, Fully Oriented, Alert, Motor Strength 5/5, Normal Mood/Affect Integumentary: Yes: Normal Color, Dry, Warm Lymphatic: Yes: Within Normal Limits - Diagnostic (1) History of fall Current Visit: Yes Status: Chronic (2) Psychiatric disorder Current Visit: Yes Status: Suspected (3) HTN (hypertension) Current Visit: Yes Status: Chronic Qualifiers: Hypertension type: essential hypertension Qualified Code(s): I10 - Essential (primary) hypertension Comment: currntly not on medication (4) Hepatitis C Current Visit: Yes Status: Chronic (5) Nicotine dependence Current Visit: Yes Status: Acute Qualifiers: Nicotine product type: cigarettes (6) Sedative hypnotic or anxiolytic dependence Current Visit: Yes Status: Acute (7) Kyphosis deformity of spine Current Visit: Yes Status: Chronic Comment: . (8) Lower extremity neuropathy Current Visit: Yes Status: Chronic Qualifiers: Laterality: bilateral Qualified Code(s): G57.93 - Unspecified mononeuropathy of bilateral lower limbs Comment: . (9) Methadone maintenance therapy patient Current Visit: Yes Status: Chronic Comment: MMTP 140 MG PENDING VERIFICATION (10) Weight loss Current Visit: Yes Status: Acute (11) Unsteady gait Current Visit: Yes Status: Chronic [facility] Breath Alcohol Content Breath Alcohol Content: 0 Urine Drug Screen - Results Drug Screen Negative: No Urine Drug Screen Results: BZO-Benzodiazepines, MTD-Methadone, TCA-Tricyclic Antidepress Inpatient Rehab Admission - Initial Determination Are CD services needed?: Yes Free of communicable disease: Yes Not in need of hospitalization: Yes - Rehab Admission Criteria Previous failed treatment: Yes Poor recovery environment: Yes Comorbidities: Yes Lacks judgement: Yes Patient is meeting Inpatient Rehab admission criteria:: Yes
[2017-08-08] MEDS ORDERED: MAG HYDROX/AL HYDROX/SIMETH 30 ML UNIT-DOSE CUP PO PRN (22:40)
[2017-08-08] MEDS ORDERED: MAGNESIUM CITRATE 300 ML BOTTLE PO PRN (22:40)
[2017-08-08] MEDS ORDERED: MENTHOL/PHENOL 1 EACH UD MM PRN (22:40)
[2017-08-08] MEDS ORDERED: ACETAMINOPHEN 325 MG TABLET (FP) PO PRN (22:40)
[2017-08-08] MEDS ORDERED: guaiFENesin/D-METHORPHAN HB 10 ML UNIT-DOSE CUPS PO PRN (22:40)
[2017-08-08] MEDS ORDERED: IBUPROFEN 400 MG TABLET (FP) PO PRN (22:40)
[2017-08-08] MEDS ORDERED: LOPERAMIDE HCL 2 MG CAPSULE PO PRN (22:40)
[2017-08-08] MEDS ORDERED: P-EPHED 60MG/TRIPROLIDI 2.5MG TABLET PO PRN (22:40)
[2017-08-09] MEDS: GABAPENTIN 100 MG CAPSULE (FP) PO SCH ×4 (01:11→21:36)
[2017-08-09 02:07] LABS: URINE APPEARANCE CLEAR; URINE BILIRUBIN NEGATIVE (<2.0 mg/dL); URINE BLOOD NEGATIVE (NEGATIVE); URINE COLOR DKYELLOW; URINE GLUCOSE (UA) NEGATIVE (NEGATIVE); URINE KETONE NEGATIVE (NEGATIVE); URINE LEUK ESTERASE TRACE (NEGATIVE); URINE NITRITE NEGATIVE (NEGATIVE); URINE PROTEIN NEGATIVE (NEGATIVE)
[2017-08-09 03:15] LABS: URINE BACTERIA RARE /hpf (NONE SEEN); URINE MUCUS RARE
[2017-08-09] MEDS ORDERED: METHADONE HCL 10 MG TABLET PO SCH (08:45)
[2017-08-09] MEDS ORDERED: METHADONE HCL 10 MG TABLET ONE (09:10)
[2017-08-09] MEDS ORDERED: METHADONE HCL 40 MG DISPERSABLE TABLET ONE (09:11)
[2017-08-09] MEDS: METHADONE 120 MG, METHADONE 20 MG PO SCH (09:12)
[2017-08-09] MEDS: ASPIRIN 81 MG CHEWABLE TABLETS PO SCH (09:14)
[2017-08-09] MEDS: PRENATAL VITAMINS W/ FOLIC ACID TABLET (FP) PO SCH (09:14)
[2017-08-09] MEDS: NICOTINE 14 MG/24 HOURS TOPICAL PATCH TD SCH (09:15)
[2017-08-09] MEDS: NICOTINE POLACRILEX 2 MG GUM BC PRN ×2 (09:16→14:19)
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
--- NOTE | 2017-08-09 16:46 | EKG ---
Test Reason : Blood Pressure : / mmHG Vent. Rate : 060 BPM Atrial Rate : 060 BPM P-R Int : 176 ms QRS Dur : 098 ms QT Int : 478 ms P-R-T Axes : 030 -16 031 degrees QTc Int : 478 ms NORMAL SINUS RHYTHM WITH SINUS ARRHYTHMIA NORMAL ECG Confirmed by MD Vinicius, Apollo ([id number]) on 08/09/2017 4:45:50 PM Referred By: Confirmed By:Apollo Colvin MD
[2017-08-09 17:01] LABS: HEMATOCRIT 37.8 % (35.4-49); HEMOGLOBIN 12.8 GM/dL (11.7-16.9); MCH 32.5 pg (25.7-33.7); MCHC 33.9 g/dl (32.0-35.9); MEAN CELL VOLUME 95.9 fl (80-96); MEAN PLT VOLUME 10.1 fl (7.5-11.1); PLATELET COUNT 312 K/MM3 (134-434); RBC 3.94 M/mm3 (4.00-5.60); RDW 14.7 % (11.9-15.9); WHITE BLOOD COUNT 6.6 K/mm3 (4.0-10.0)
[2017-08-09 17:14] LABS: ALBUMIN 3.7 g/dl (3.4-5.0); ANION GAP 11 (8-16); BLOOD UREA NITROGEN 31 mg/dL (7-18); CALCIUM 8.7 mg/dL (8.5-10.1); CHLORIDE 101 mmol/L (98-107); CO2 30 mmol/L (21-32); GLUCOSE,RANDOM 139 mg/dL (74-106); POTASSIUM 4.8 mmol/L (3.5-5.1); SODIUM 142 mmol/L (136-145)
[2017-08-09 17:19] LABS: ALK PHOS 159 U/L (45-117); BILIRUBIN,TOTAL 0.4 mg/dL (0.2-1.0); CREATININE 1.3 mg/dL (0.7-1.3); SGOT/AST 29 U/L (15-37); SGPT/ALT 37 U/L (12-78)
[2017-08-09] MEDS: THIAMINE HCL 100 MG TABLET (FP) PO SCH (21:36)
[2017-08-09] MEDS: traZODone HCL 50 MG TABLET (FP) PO SCH (21:36)
[2017-08-10] MEDS ORDERED: METHADONE HCL 10 MG TABLET ONE (03:45)
[2017-08-10] MEDS ORDERED: METHADONE HCL 40 MG DISPERSABLE TABLET ONE (03:45)
[2017-08-10] MEDS: METHADONE 120 MG, METHADONE 20 MG PO SCH (06:28)
[2017-08-10] MEDS: GABAPENTIN 100 MG CAPSULE (FP) PO SCH ×3 (06:28→21:33)
[2017-08-10] MEDS: NICOTINE POLACRILEX 2 MG GUM BC PRN ×3 (06:30→14:36)
[2017-08-10] MEDS: ASPIRIN 81 MG CHEWABLE TABLETS PO SCH (09:53)
[2017-08-10] MEDS: PRENATAL VITAMINS W/ FOLIC ACID TABLET (FP) PO SCH (09:53)
[2017-08-10] MEDS: NICOTINE 14 MG/24 HOURS TOPICAL PATCH TD SCH (09:54)
[2017-08-10] MEDS: THIAMINE HCL 100 MG TABLET (FP) PO SCH (21:33)
[2017-08-10] MEDS: traZODone HCL 50 MG TABLET (FP) PO SCH (21:33)
--- NOTE | 2017-08-10 21:53 | PN ---
S Progress Note Note: Patient c/o of constipation was tx outpatient with colace. No distress Vital Signs Temperature 97.7 F 08/10/17 07:28 Pulse Rate 68 08/10/17 07:28 Respiratory Rate 19 08/10/17 07:28 Blood Pressure 134/78 08/10/17 07:28 O2 Sat by Pulse Oximetry (%) Colace 300 mg QHS Increase fluids Continue to monitor
[2017-08-10] MEDS: DOCUSATE SODIUM 100 MG CAPSULE (FP) PO SCH (22:21)
[2017-08-11] MEDS ORDERED: METHADONE HCL 40 MG DISPERSABLE TABLET ONE (05:26)
[2017-08-11] MEDS ORDERED: METHADONE HCL 10 MG TABLET ONE (05:26)
[2017-08-11] MEDS: GABAPENTIN 100 MG CAPSULE (FP) PO SCH ×3 (06:11→21:59)
[2017-08-11] MEDS: METHADONE 120 MG, METHADONE 20 MG PO SCH (06:11)
[2017-08-11] MEDS: NICOTINE POLACRILEX 2 MG GUM BC PRN ×2 (08:35→10:11)
[2017-08-11] MEDS: NICOTINE 14 MG/24 HOURS TOPICAL PATCH TD SCH (10:10)
[2017-08-11] MEDS: PRENATAL VITAMINS W/ FOLIC ACID TABLET (FP) PO SCH (10:10)
[2017-08-11] MEDS: ASPIRIN 81 MG CHEWABLE TABLETS PO SCH (10:10)
[2017-08-11] MEDS: traZODone HCL 50 MG TABLET (FP) PO SCH (21:59)
[2017-08-11] MEDS: DOCUSATE SODIUM 100 MG CAPSULE (FP) PO SCH (21:59)
[2017-08-11] MEDS: THIAMINE HCL 100 MG TABLET (FP) PO SCH (21:59)
[2017-08-12] MEDS ORDERED: METHADONE HCL 10 MG TABLET ONE (03:48)
[2017-08-12] MEDS ORDERED: METHADONE HCL 40 MG DISPERSABLE TABLET ONE (03:48)
[2017-08-12] MEDS: GABAPENTIN 100 MG CAPSULE (FP) PO SCH ×3 (06:08→21:29)
[2017-08-12] MEDS: METHADONE 120 MG, METHADONE 20 MG PO SCH (06:09)
[2017-08-12] MEDS: NICOTINE POLACRILEX 2 MG GUM BC PRN ×2 (06:31→10:29)
[2017-08-12] MEDS: PRENATAL VITAMINS W/ FOLIC ACID TABLET (FP) PO SCH (10:28)
[2017-08-12] MEDS: ASPIRIN 81 MG CHEWABLE TABLETS PO SCH (10:29)
[2017-08-12] MEDS: NICOTINE 14 MG/24 HOURS TOPICAL PATCH TD SCH (10:29)
[2017-08-12] MEDS: MAGNESIUM HYDROX 2400MG/30ML ORAL SUSPENSION 30 ML CUP PO PRN (21:29)
[2017-08-12] MEDS: traZODone HCL 50 MG TABLET (FP) PO SCH (21:29)
[2017-08-12] MEDS: DOCUSATE SODIUM 100 MG CAPSULE (FP) PO SCH (21:29)
[2017-08-12] MEDS: THIAMINE HCL 100 MG TABLET (FP) PO SCH (21:29)
[2017-08-13] MEDS ORDERED: METHADONE HCL 10 MG TABLET ONE (03:37)
[2017-08-13] MEDS ORDERED: METHADONE HCL 40 MG DISPERSABLE TABLET ONE (03:37)
[2017-08-13] MEDS: GABAPENTIN 100 MG CAPSULE (FP) PO SCH ×3 (06:03→21:59)
[2017-08-13] MEDS: METHADONE 120 MG, METHADONE 20 MG PO SCH (06:03)
[2017-08-13] MEDS: ASPIRIN 81 MG CHEWABLE TABLETS PO SCH (10:44)
[2017-08-13] MEDS: NICOTINE 14 MG/24 HOURS TOPICAL PATCH TD SCH (10:44)
[2017-08-13] MEDS: NICOTINE POLACRILEX 2 MG GUM BC PRN (10:45)
[2017-08-13] MEDS: PRENATAL VITAMINS W/ FOLIC ACID TABLET (FP) PO SCH (10:45)
[2017-08-13] MEDS: DOCUSATE SODIUM 100 MG CAPSULE (FP) PO SCH (21:59)
[2017-08-13] MEDS: THIAMINE HCL 100 MG TABLET (FP) PO SCH (21:59)
[2017-08-13] MEDS: traZODone HCL 50 MG TABLET (FP) PO SCH (21:59)
[2017-08-13] MEDS: MAGNESIUM HYDROX 2400MG/30ML ORAL SUSPENSION 30 ML CUP PO PRN (22:01)
[2017-08-14] MEDS ORDERED: METHADONE HCL 10 MG TABLET ONE (03:31)
[2017-08-14] MEDS ORDERED: METHADONE HCL 40 MG DISPERSABLE TABLET ONE (03:31)
[2017-08-14] MEDS: GABAPENTIN 100 MG CAPSULE (FP) PO SCH ×3 (06:06→21:27)
[2017-08-14] MEDS: METHADONE 120 MG, METHADONE 20 MG PO SCH (06:06)
[2017-08-14] MEDS: ASPIRIN 81 MG CHEWABLE TABLETS PO SCH (10:48)
[2017-08-14] MEDS: NICOTINE 14 MG/24 HOURS TOPICAL PATCH TD SCH (10:49)
[2017-08-14] MEDS: PRENATAL VITAMINS W/ FOLIC ACID TABLET (FP) PO SCH (10:49)
[2017-08-14] MEDS: NICOTINE POLACRILEX 2 MG GUM BC PRN (10:50)
[2017-08-14] MEDS: traZODone HCL 50 MG TABLET (FP) PO SCH (21:27)
[2017-08-14] MEDS: DOCUSATE SODIUM 100 MG CAPSULE (FP) PO SCH (21:27)
[2017-08-14] MEDS: THIAMINE HCL 100 MG TABLET (FP) PO SCH (21:27)
[2017-08-15] MEDS ORDERED: METHADONE HCL 40 MG DISPERSABLE TABLET ONE (04:53)
[2017-08-15] MEDS ORDERED: METHADONE HCL 10 MG TABLET ONE (04:53)
[2017-08-15] MEDS: GABAPENTIN 100 MG CAPSULE (FP) PO SCH ×4 (06:05→21:53)
[2017-08-15] MEDS: METHADONE 120 MG, METHADONE 20 MG PO SCH (06:06)
[2017-08-15] MEDS: NICOTINE POLACRILEX 2 MG GUM BC PRN (06:09)
[2017-08-15] MEDS: PRENATAL VITAMINS W/ FOLIC ACID TABLET (FP) PO SCH (10:12)
[2017-08-15] MEDS: NICOTINE 14 MG/24 HOURS TOPICAL PATCH TD SCH (10:13)
[2017-08-15] MEDS: ASPIRIN 81 MG CHEWABLE TABLETS PO SCH (10:13)
--- NOTE | 2017-08-15 10:35 | PN ---
[facility] Progress Note Note: Patient reports he would like increase of nicotine gum. Vital Signs Temperature 97.3 F L 08/15/17 06:30 Pulse Rate 57 L 08/15/17 06:30 Respiratory Rate 18 08/15/17 06:30 Blood Pressure 165/74 08/15/17 06:30 O2 Sat by Pulse Oximetry (%) Subj: Denies CP, SOB, palpitations and dizziness. Pt reports he is craving cigarettes and would like to stop smoking. Requesting increase in nicotine gum dose. +occasional headache. OBJ: Alert and oriented. In NAD. Ambulating in rodas without assistance. CN 1- X11 grossly intact. A/P: Tobacco withdrawal Elevated BP Will increase gum to 4mg prn and repeat BP in one hour Continue to monitor Nursing staff informed to call MD/CST of repeat BP results.
[2017-08-15] MEDS: MAGNESIUM CITRATE 300 ML BOTTLE PO PRN (12:34)
[2017-08-15] MEDS: NICOTINE POLACRILEX 4 MG GUM BUC PRN (12:35)
[2017-08-15] MEDS: traZODone HCL 50 MG TABLET (FP) PO SCH (21:53)
[2017-08-15] MEDS: DOCUSATE SODIUM 100 MG CAPSULE (FP) PO SCH (21:53)
[2017-08-15] MEDS: THIAMINE HCL 100 MG TABLET (FP) PO SCH (21:53)
[2017-08-16] MEDS ORDERED: METHADONE HCL 40 MG DISPERSABLE TABLET ONE (04:51)
[2017-08-16] MEDS ORDERED: METHADONE HCL 10 MG TABLET ONE (04:51)
[2017-08-16] MEDS: GABAPENTIN 100 MG CAPSULE (FP) PO SCH ×3 (06:21→21:39)
[2017-08-16] MEDS: METHADONE 120 MG, METHADONE 20 MG PO SCH (06:21)
[2017-08-16] MEDS: NICOTINE POLACRILEX 4 MG GUM BUC PRN ×2 (06:25→10:39)
[2017-08-16] MEDS: ASPIRIN 81 MG CHEWABLE TABLETS PO SCH (10:36)
[2017-08-16] MEDS: NICOTINE 14 MG/24 HOURS TOPICAL PATCH TD SCH (10:36)
[2017-08-16] MEDS: PRENATAL VITAMINS W/ FOLIC ACID TABLET (FP) PO SCH (10:37)
--- NOTE | 2017-08-16 15:49 | PN ---
[facility] Progress Note Note: Patient c/o of constipation Vital Signs Temperature 97.6 F 08/16/17 08:00 Pulse Rate 54 L 08/16/17 08:00 Respiratory Rate 18 08/16/17 08:00 Blood Pressure 147/82 08/16/17 08:00 O2 Sat by Pulse Oximetry (%) Laboratory Last Values WBC 6.6 K/mm3 (4.0-10.0) 08/09/17 08:30 RBC 3.94 M/mm3 (4.00-5.60) L 08/09/17 08:30 Hgb 12.8 GM/dL (11.7-16.9) 08/09/17 08:30 Hct 37.8 % (35.4-49) 08/09/17 08:30 MCV 95.9 fl (80-96) 08/09/17 08:30 MCH 32.5 pg (25.7-33.7) 08/09/17 08:30 MCHC 33.9 g/dl (32.0-35.9) 08/09/17 08:30 RDW 14.7 % (11.9-15.9) 08/09/17 08:30 Plt Count 312 K/MM3 (134-434) D 08/09/17 08:30 MPV 10.1 fl (7.5-11.1) 08/09/17 08:30 Sodium 142 mmol/L (136-145) 08/09/17 08:30 Potassium 4.8 mmol/L (3.5-5.1) 08/09/17 08:30 Chloride 101 mmol/L (98-107) 08/09/17 08:30 Carbon Dioxide 30 mmol/L (21-32) 08/09/17 08:30 Anion Gap 11 (8-16) 08/09/17 08:30 BUN 31 mg/dL (7-18) H 08/09/17 08:30 Creatinine 1.3 mg/dL (0.7-1.3) 08/09/17 08:30 Creat Clearance w eGFR 53.96 (>60) 08/09/17 08:30 POC Glucometer 79 UNITS (80-120) 08/16/17 06:20 Random Glucose 139 mg/dL (74-106) H 08/09/17 08:30 Calcium 8.7 mg/dL (8.5-10.1) 08/09/17 08:30 Total Bilirubin 0.4 mg/dL (0.2-1.0) D 08/09/17 08:30 AST 29 U/L (15-37) 08/09/17 08:30 ALT 37 U/L (12-78) 08/09/17 08:30 Alkaline Phosphatase 159 U/L (45-117) H 08/09/17 08:30 Total Protein 7.0 g/dl (6.4-8.2) 08/09/17 08:30 Albumin 3.7 g/dl (3.4-5.0) 08/09/17 08:30 Urine Color Dkyellow 08/08/17 22:00 Urine Appearance Clear 08/08/17 22:00 Urine pH 5.0 (5.0-8.0) 08/08/17 22:00 Ur Specific [place] 1.021 (1.001-1.035) 08/08/17 22:00 Urine Protein Negative (NEGATIVE) 08/08/17 22:00 Urine Glucose (UA) Negative (NEGATIVE) 08/08/17 22:00 Urine Ketones Negative (NEGATIVE) 08/08/17 22:00 Urine Blood Negative (NEGATIVE) 08/08/17 22:00 Urine Nitrite Negative (NEGATIVE) 08/08/17 22:00 Urine Bilirubin Negative (<2.0 mg/dL) 08/08/17 22:00 Urine Urobilinogen 2.0 mg/dL (0.2-1.0) 08/08/17 22:00 Ur Leukocyte Esterase Trace (NEGATIVE) 08/08/17 22:00 Urine WBC (Auto) 3-5 /hpf (3-5) 08/08/17 22:00 Urine RBC (Auto) None /hpf (0-3) 08/08/17 22:00 Urine Bacteria Rare /hpf (NONE SEEN) 08/08/17 22:00 Urine Mucus Rare 08/08/17 22:00 RPR Titer Nonreactive (NONREACTIVE) 08/09/17 08:30 plan: Increase fluids Ambulate Senna BID PRN Lactulose TID PRN Continue to monitor
[2017-08-16] MEDS: SENNOSIDES 8.6MG TABLET (FP) PO SCH (21:39)
[2017-08-16] MEDS: traZODone HCL 50 MG TABLET (FP) PO SCH (21:39)
[2017-08-16] MEDS: DOCUSATE SODIUM 100 MG CAPSULE (FP) PO SCH (21:39)
[2017-08-16] MEDS: THIAMINE HCL 100 MG TABLET (FP) PO SCH (21:39)
[2017-08-17] MEDS ORDERED: METHADONE HCL 10 MG TABLET ONE (05:24)
[2017-08-17] MEDS ORDERED: METHADONE HCL 40 MG DISPERSABLE TABLET ONE (05:25)
[2017-08-17] MEDS: METHADONE 120 MG, METHADONE 20 MG PO SCH (06:16)
[2017-08-17] MEDS: GABAPENTIN 100 MG CAPSULE (FP) PO SCH ×3 (06:16→21:43)
[2017-08-17] MEDS: NICOTINE POLACRILEX 4 MG GUM BUC PRN (06:20)
[2017-08-17] MEDS: PRENATAL VITAMINS W/ FOLIC ACID TABLET (FP) PO SCH (10:43)
[2017-08-17] MEDS: SENNOSIDES 8.6MG TABLET (FP) PO SCH ×2 (10:43→21:42)
[2017-08-17] MEDS: NICOTINE 14 MG/24 HOURS TOPICAL PATCH TD SCH (10:43)
[2017-08-17] MEDS: ASPIRIN 81 MG CHEWABLE TABLETS PO SCH (10:43)
[2017-08-17] MEDS: LACTULOSE 20 GM/30 ML UDC (FOR ORAL USE ONLY) PO PRN (12:39)
--- NOTE | 2017-08-17 16:36 | PN ---
[facility] Progress Note Note: Patient complains of constipation despite medication with Maalox and Citroma. Vital Signs Temperature 97.2 F L 08/17/17 07:11 Pulse Rate 61 08/17/17 07:11 Respiratory Rate 18 08/17/17 07:11 Blood Pressure 159/80 08/17/17 07:11 O2 Sat by Pulse Oximetry (%) Obj: Pt awake and oriented x 3. In NAD. Abd softly distended, BS +, NT A/P: will order fleets enema [place] x one increase oral fluids continue to monitor clinically
[2017-08-17] MEDS ORDERED: SODIUM PHOSPHATE/NA BIPHOS 133 ML ENEMA PR ONE (16:45)
[2017-08-17] MEDS: DOCUSATE SODIUM 100 MG CAPSULE (FP) PO SCH (21:41)
[2017-08-17] MEDS: traZODone HCL 50 MG TABLET (FP) PO SCH (21:41)
[2017-08-17] MEDS: THIAMINE HCL 100 MG TABLET (FP) PO SCH (21:42)
[2017-08-18] MEDS ORDERED: METHADONE HCL 40 MG DISPERSABLE TABLET ONE (03:22)
[2017-08-18] MEDS ORDERED: METHADONE HCL 10 MG TABLET ONE (03:22)
[2017-08-18] MEDS: GABAPENTIN 100 MG CAPSULE (FP) PO SCH ×3 (06:06→22:00)
[2017-08-18] MEDS: METHADONE 120 MG, METHADONE 20 MG PO SCH (06:06)
[2017-08-18] MEDS: NICOTINE 14 MG/24 HOURS TOPICAL PATCH TD SCH (10:32)
[2017-08-18] MEDS: PRENATAL VITAMINS W/ FOLIC ACID TABLET (FP) PO SCH (10:32)
[2017-08-18] MEDS: NICOTINE POLACRILEX 4 MG GUM BUC PRN (10:32)
[2017-08-18] MEDS: SENNOSIDES 8.6MG TABLET (FP) PO SCH ×2 (10:32→22:00)
[2017-08-18] MEDS: ASPIRIN 81 MG CHEWABLE TABLETS PO SCH (10:32)
[2017-08-18] MEDS: DOCUSATE SODIUM 100 MG CAPSULE (FP) PO SCH (21:59)
[2017-08-18] MEDS: traZODone HCL 50 MG TABLET (FP) PO SCH (22:00)
[2017-08-18] MEDS: THIAMINE HCL 100 MG TABLET (FP) PO SCH (22:00)
[2017-08-19] MEDS ORDERED: METHADONE HCL 10 MG TABLET ONE (05:28)
[2017-08-19] MEDS ORDERED: METHADONE HCL 40 MG DISPERSABLE TABLET ONE (05:28)
[2017-08-19] MEDS: GABAPENTIN 100 MG CAPSULE (FP) PO SCH ×3 (06:19→21:40)
[2017-08-19] MEDS: METHADONE 120 MG, METHADONE 20 MG PO SCH (06:19)
[2017-08-19] MEDS: NICOTINE POLACRILEX 4 MG GUM BUC PRN ×2 (06:20→14:26)
[2017-08-19] MEDS: SENNOSIDES 8.6MG TABLET (FP) PO SCH ×2 (10:24→21:40)
[2017-08-19] MEDS: ASPIRIN 81 MG CHEWABLE TABLETS PO SCH (10:24)
[2017-08-19] MEDS: PRENATAL VITAMINS W/ FOLIC ACID TABLET (FP) PO SCH (10:25)
[2017-08-19] MEDS: NICOTINE 14 MG/24 HOURS TOPICAL PATCH TD SCH (10:25)
[2017-08-19] MEDS: LACTULOSE 20 GM/30 ML UDC (FOR ORAL USE ONLY) PO PRN (10:26)
[2017-08-19] MEDS: MAGNESIUM CITRATE 300 ML BOTTLE PO PRN (14:24)
[2017-08-19] MEDS: THIAMINE HCL 100 MG TABLET (FP) PO SCH (21:40)
[2017-08-19] MEDS: traZODone HCL 50 MG TABLET (FP) PO SCH (21:40)
[2017-08-19] MEDS: DOCUSATE SODIUM 100 MG CAPSULE (FP) PO SCH (21:40)
[2017-08-20] MEDS ORDERED: METHADONE HCL 10 MG TABLET ONE (05:58)
[2017-08-20] MEDS ORDERED: METHADONE HCL 40 MG DISPERSABLE TABLET ONE (05:58)
[2017-08-20] MEDS: METHADONE 120 MG, METHADONE 20 MG PO SCH (06:04)
[2017-08-20] MEDS: GABAPENTIN 100 MG CAPSULE (FP) PO SCH ×3 (06:04→21:53)
[2017-08-20] MEDS: PRENATAL VITAMINS W/ FOLIC ACID TABLET (FP) PO SCH (10:32)
[2017-08-20] MEDS: SENNOSIDES 8.6MG TABLET (FP) PO SCH ×2 (10:32→21:53)
[2017-08-20] MEDS: ASPIRIN 81 MG CHEWABLE TABLETS PO SCH (10:32)
[2017-08-20] MEDS: NICOTINE 14 MG/24 HOURS TOPICAL PATCH TD SCH (10:32)
[2017-08-20] MEDS: NICOTINE POLACRILEX 4 MG GUM BUC PRN (10:33)
[2017-08-20] MEDS: traZODone HCL 50 MG TABLET (FP) PO SCH (21:52)
[2017-08-20] MEDS: THIAMINE HCL 100 MG TABLET (FP) PO SCH (21:52)
[2017-08-20] MEDS: DOCUSATE SODIUM 100 MG CAPSULE (FP) PO SCH (21:53)
[2017-08-21] MEDS ORDERED: METHADONE HCL 40 MG DISPERSABLE TABLET ONE (02:32)
[2017-08-21] MEDS ORDERED: METHADONE HCL 10 MG TABLET ONE (02:32)
[2017-08-21] MEDS: GABAPENTIN 100 MG CAPSULE (FP) PO SCH ×3 (06:08→21:50)
[2017-08-21] MEDS: METHADONE 120 MG, METHADONE 20 MG PO SCH (06:09)
[2017-08-21] MEDS: PRENATAL VITAMINS W/ FOLIC ACID TABLET (FP) PO SCH (10:17)
[2017-08-21] MEDS: SENNOSIDES 8.6MG TABLET (FP) PO SCH ×2 (10:17→21:50)
[2017-08-21] MEDS: NICOTINE 14 MG/24 HOURS TOPICAL PATCH TD SCH (10:17)
[2017-08-21] MEDS: ASPIRIN 81 MG CHEWABLE TABLETS PO SCH (10:17)
[2017-08-21] MEDS: NICOTINE POLACRILEX 4 MG GUM BUC PRN (10:18)
[2017-08-21] MEDS: traZODone HCL 50 MG TABLET (FP) PO SCH (21:50)
[2017-08-21] MEDS: DOCUSATE SODIUM 100 MG CAPSULE (FP) PO SCH (21:50)
[2017-08-21] MEDS: THIAMINE HCL 100 MG TABLET (FP) PO SCH (21:50)
[2017-08-22] MEDS ORDERED: METHADONE HCL 10 MG TABLET ONE (04:23)
[2017-08-22] MEDS ORDERED: METHADONE HCL 40 MG DISPERSABLE TABLET ONE (04:24)
[2017-08-22] MEDS: METHADONE 120 MG, METHADONE 20 MG PO SCH (06:06)
[2017-08-22] MEDS: GABAPENTIN 100 MG CAPSULE (FP) PO SCH ×3 (06:06→21:33)
[2017-08-22] MEDS: ASPIRIN 81 MG CHEWABLE TABLETS PO SCH (10:56)
[2017-08-22] MEDS: SENNOSIDES 8.6MG TABLET (FP) PO SCH ×2 (10:56→21:33)
[2017-08-22] MEDS: NICOTINE 14 MG/24 HOURS TOPICAL PATCH TD SCH (10:56)
[2017-08-22] MEDS: PRENATAL VITAMINS W/ FOLIC ACID TABLET (FP) PO SCH (10:56)
--- NOTE | 2017-08-22 13:39 | PN ---
S Progress Note Note: Pt presents with complaint of ongoing constipation and no relief from MOM and stool softeners. Vital Signs Temperature 98.2 F 08/22/17 07:11 Pulse Rate 60 08/22/17 07:11 Respiratory Rate 18 08/22/17 07:11 Blood Pressure 153/81 08/22/17 07:11 O2 Sat by Pulse Oximetry (%) Obj: Ambulating within unit in NAD. Alert and oriented x 3. Skin warm and dry. Abdomen not distended. Last BM this am. Small hard stools reported A/p Constipation Will start dulcolax supp [place] HS prn increase oral fluids continue to monitor
[2017-08-22] MEDS: NICOTINE POLACRILEX 4 MG GUM BUC PRN (14:12)
[2017-08-22] MEDS: THIAMINE HCL 100 MG TABLET (FP) PO SCH (21:33)
[2017-08-22] MEDS: DOCUSATE SODIUM 100 MG CAPSULE (FP) PO SCH (21:33)
[2017-08-22] MEDS: traZODone HCL 50 MG TABLET (FP) PO SCH (21:33)
[2017-08-23] MEDS ORDERED: METHADONE HCL 10 MG TABLET ONE (03:54)
[2017-08-23] MEDS ORDERED: METHADONE HCL 40 MG DISPERSABLE TABLET ONE (03:55)
[2017-08-23] MEDS: METHADONE 120 MG, METHADONE 20 MG PO SCH (05:56)
[2017-08-23] MEDS: GABAPENTIN 100 MG CAPSULE (FP) PO SCH ×3 (05:57→21:24)
[2017-08-23] MEDS: SENNOSIDES 8.6MG TABLET (FP) PO SCH ×3 (10:19→21:25)
[2017-08-23] MEDS: ASPIRIN 81 MG CHEWABLE TABLETS PO SCH (10:19)
[2017-08-23] MEDS: NICOTINE 14 MG/24 HOURS TOPICAL PATCH TD SCH (10:19)
[2017-08-23] MEDS: PRENATAL VITAMINS W/ FOLIC ACID TABLET (FP) PO SCH (10:20)
[2017-08-23] MEDS: NICOTINE POLACRILEX 4 MG GUM BUC PRN (10:20)
[2017-08-23] MEDS: DOCUSATE SODIUM 100 MG CAPSULE (FP) PO SCH (21:24)
[2017-08-23] MEDS: THIAMINE HCL 100 MG TABLET (FP) PO SCH (21:24)
[2017-08-23] MEDS: traZODone HCL 50 MG TABLET (FP) PO SCH (21:24)
[2017-08-24] MEDS ORDERED: METHADONE HCL 10 MG TABLET ONE (06:07)
[2017-08-24] MEDS ORDERED: METHADONE HCL 40 MG DISPERSABLE TABLET ONE (06:08)
[2017-08-24] MEDS: METHADONE 120 MG, METHADONE 20 MG PO SCH (06:18)
[2017-08-24] MEDS: NICOTINE POLACRILEX 4 MG GUM BUC PRN ×2 (06:18→14:15)
[2017-08-24] MEDS: GABAPENTIN 100 MG CAPSULE (FP) PO SCH ×3 (06:18→22:01)
[2017-08-24] MEDS: PRENATAL VITAMINS W/ FOLIC ACID TABLET (FP) PO SCH (10:17)
[2017-08-24] MEDS: NICOTINE 14 MG/24 HOURS TOPICAL PATCH TD SCH (10:17)
[2017-08-24] MEDS: ASPIRIN 81 MG CHEWABLE TABLETS PO SCH (10:17)
[2017-08-24] MEDS: SENNOSIDES 8.6MG TABLET (FP) PO SCH ×2 (10:17→22:01)
[2017-08-24] MEDS: BISACODYL 10 MG SUPP.RECT RC PRN (10:18)
[2017-08-24] MEDS: traZODone HCL 50 MG TABLET (FP) PO SCH (22:00)
[2017-08-24] MEDS: THIAMINE HCL 100 MG TABLET (FP) PO SCH (22:01)
[2017-08-24] MEDS: DOCUSATE SODIUM 100 MG CAPSULE (FP) PO SCH (22:01)
[2017-08-25] MEDS ORDERED: METHADONE HCL 10 MG TABLET ONE (03:35)
[2017-08-25] MEDS ORDERED: METHADONE HCL 40 MG DISPERSABLE TABLET ONE (03:35)
[2017-08-25] MEDS: GABAPENTIN 100 MG CAPSULE (FP) PO SCH ×3 (06:09→21:50)
[2017-08-25] MEDS: NICOTINE POLACRILEX 4 MG GUM BUC PRN ×2 (06:09→10:29)
[2017-08-25] MEDS: METHADONE 120 MG, METHADONE 20 MG PO SCH (06:09)
[2017-08-25] MEDS: NICOTINE 14 MG/24 HOURS TOPICAL PATCH TD SCH (10:27)
[2017-08-25] MEDS: SENNOSIDES 8.6MG TABLET (FP) PO SCH ×2 (10:27→21:50)
[2017-08-25] MEDS: PRENATAL VITAMINS W/ FOLIC ACID TABLET (FP) PO SCH (10:27)
[2017-08-25] MEDS: ASPIRIN 81 MG CHEWABLE TABLETS PO SCH (10:27)
[2017-08-25] MEDS: BISACODYL 10 MG SUPP.RECT RC PRN (10:28)
[2017-08-25] MEDS: THIAMINE HCL 100 MG TABLET (FP) PO SCH (21:50)
[2017-08-25] MEDS: DOCUSATE SODIUM 100 MG CAPSULE (FP) PO SCH (21:50)
[2017-08-25] MEDS: traZODone HCL 50 MG TABLET (FP) PO SCH (21:50)
[2017-08-26] MEDS ORDERED: METHADONE HCL 10 MG TABLET ONE (05:37)
[2017-08-26] MEDS ORDERED: METHADONE HCL 40 MG DISPERSABLE TABLET ONE (05:38)
[2017-08-26] MEDS: GABAPENTIN 100 MG CAPSULE (FP) PO SCH ×3 (06:18→21:43)
[2017-08-26] MEDS: METHADONE 120 MG, METHADONE 20 MG PO SCH (06:18)
[2017-08-26] MEDS: NICOTINE POLACRILEX 4 MG GUM BUC PRN ×2 (06:21→10:37)
[2017-08-26] MEDS: ASPIRIN 81 MG CHEWABLE TABLETS PO SCH (10:35)
[2017-08-26] MEDS: SENNOSIDES 8.6MG TABLET (FP) PO SCH ×2 (10:35→21:43)
[2017-08-26] MEDS: NICOTINE 14 MG/24 HOURS TOPICAL PATCH TD SCH (10:36)
[2017-08-26] MEDS: PRENATAL VITAMINS W/ FOLIC ACID TABLET (FP) PO SCH (10:36)
[2017-08-26] MEDS: traZODone HCL 50 MG TABLET (FP) PO SCH (21:42)
[2017-08-26] MEDS: THIAMINE HCL 100 MG TABLET (FP) PO SCH (21:42)
[2017-08-26] MEDS: DOCUSATE SODIUM 100 MG CAPSULE (FP) PO SCH (21:43)
[2017-08-27] MEDS ORDERED: METHADONE HCL 10 MG TABLET ONE (04:16)
[2017-08-27] MEDS ORDERED: METHADONE HCL 40 MG DISPERSABLE TABLET ONE (04:17)
[2017-08-27] MEDS: GABAPENTIN 100 MG CAPSULE (FP) PO SCH ×3 (06:22→21:35)
[2017-08-27] MEDS: METHADONE 120 MG, METHADONE 20 MG PO SCH (06:23)
[2017-08-27] MEDS: NICOTINE POLACRILEX 4 MG GUM BUC PRN (06:28)
[2017-08-27] MEDS: PRENATAL VITAMINS W/ FOLIC ACID TABLET (FP) PO SCH (10:02)
[2017-08-27] MEDS: NICOTINE 14 MG/24 HOURS TOPICAL PATCH TD SCH (10:02)
[2017-08-27] MEDS: ASPIRIN 81 MG CHEWABLE TABLETS PO SCH (10:03)
[2017-08-27] MEDS: SENNOSIDES 8.6MG TABLET (FP) PO SCH ×2 (10:03→21:35)
[2017-08-27] MEDS: traZODone HCL 50 MG TABLET (FP) PO SCH (21:34)
[2017-08-27] MEDS: DOCUSATE SODIUM 100 MG CAPSULE (FP) PO SCH (21:35)
[2017-08-27] MEDS: THIAMINE HCL 100 MG TABLET (FP) PO SCH (21:35)
[2017-08-28] MEDS ORDERED: METHADONE HCL 40 MG DISPERSABLE TABLET ONE (05:26)
[2017-08-28] MEDS ORDERED: METHADONE HCL 10 MG TABLET ONE (05:26)
[2017-08-28] MEDS: METHADONE 120 MG, METHADONE 20 MG PO SCH (06:12)
[2017-08-28] MEDS: GABAPENTIN 100 MG CAPSULE (FP) PO SCH ×3 (06:13→21:36)
[2017-08-28] MEDS: SENNOSIDES 8.6MG TABLET (FP) PO SCH ×2 (10:21→21:36)
[2017-08-28] MEDS: ASPIRIN 81 MG CHEWABLE TABLETS PO SCH (10:21)
[2017-08-28] MEDS: PRENATAL VITAMINS W/ FOLIC ACID TABLET (FP) PO SCH (10:21)
[2017-08-28] MEDS: NICOTINE 14 MG/24 HOURS TOPICAL PATCH TD SCH (10:21)
[2017-08-28] MEDS: NICOTINE POLACRILEX 4 MG GUM BUC PRN (10:22)
[2017-08-28] MEDS: traZODone HCL 50 MG TABLET (FP) PO SCH (21:35)
[2017-08-28] MEDS: THIAMINE HCL 100 MG TABLET (FP) PO SCH (21:36)
[2017-08-28] MEDS: DOCUSATE SODIUM 100 MG CAPSULE (FP) PO SCH (21:36)
[2017-08-29] MEDS ORDERED: METHADONE HCL 40 MG DISPERSABLE TABLET ONE (03:01)
[2017-08-29] MEDS ORDERED: METHADONE HCL 10 MG TABLET ONE (03:01)
[2017-08-29] MEDS: METHADONE 120 MG, METHADONE 20 MG PO SCH (05:56)
[2017-08-29] MEDS: GABAPENTIN 100 MG CAPSULE (FP) PO SCH ×3 (05:58→21:49)
[2017-08-29] MEDS: ASPIRIN 81 MG CHEWABLE TABLETS PO SCH (10:51)
[2017-08-29] MEDS: SENNOSIDES 8.6MG TABLET (FP) PO SCH ×2 (10:51→21:50)
[2017-08-29] MEDS: PRENATAL VITAMINS W/ FOLIC ACID TABLET (FP) PO SCH (10:51)
[2017-08-29] MEDS: NICOTINE 14 MG/24 HOURS TOPICAL PATCH TD SCH (10:51)
[2017-08-29] MEDS: NICOTINE POLACRILEX 4 MG GUM BUC PRN ×2 (10:52→21:49)
[2017-08-29] MEDS: traZODone HCL 50 MG TABLET (FP) PO SCH (21:49)
[2017-08-29] MEDS: DOCUSATE SODIUM 100 MG CAPSULE (FP) PO SCH (21:50)
[2017-08-29] MEDS: THIAMINE HCL 100 MG TABLET (FP) PO SCH (21:50)
[2017-08-30] MEDS ORDERED: METHADONE HCL 10 MG TABLET ONE (03:27)
[2017-08-30] MEDS ORDERED: METHADONE HCL 40 MG DISPERSABLE TABLET ONE (03:28)
[2017-08-30] MEDS: METHADONE 120 MG, METHADONE 20 MG PO SCH (06:04)
[2017-08-30] MEDS: GABAPENTIN 100 MG CAPSULE (FP) PO SCH ×3 (06:04→21:42)
[2017-08-30] MEDS: NICOTINE POLACRILEX 4 MG GUM BUC PRN ×2 (06:10→10:26)
[2017-08-30] MEDS: PRENATAL VITAMINS W/ FOLIC ACID TABLET (FP) PO SCH (10:25)
[2017-08-30] MEDS: SENNOSIDES 8.6MG TABLET (FP) PO SCH ×2 (10:25→21:42)
[2017-08-30] MEDS: ASPIRIN 81 MG CHEWABLE TABLETS PO SCH (10:25)
[2017-08-30] MEDS: NICOTINE 14 MG/24 HOURS TOPICAL PATCH TD SCH (10:25)
[2017-08-30] MEDS: THIAMINE HCL 100 MG TABLET (FP) PO SCH (21:42)
[2017-08-30] MEDS: DOCUSATE SODIUM 100 MG CAPSULE (FP) PO SCH (21:42)
[2017-08-30] MEDS: traZODone HCL 50 MG TABLET (FP) PO SCH (21:42)
[2017-08-31] MEDS ORDERED: METHADONE HCL 10 MG TABLET ONE (06:03)
[2017-08-31] MEDS ORDERED: METHADONE HCL 40 MG DISPERSABLE TABLET ONE (06:03)
[2017-08-31] MEDS: METHADONE 120 MG, METHADONE 20 MG PO SCH (06:04)
[2017-08-31] MEDS: NICOTINE POLACRILEX 4 MG GUM BUC PRN ×3 (06:05→21:35)
[2017-08-31] MEDS: GABAPENTIN 100 MG CAPSULE (FP) PO SCH ×3 (06:05→21:34)
[2017-08-31] MEDS: ASPIRIN 81 MG CHEWABLE TABLETS PO SCH (10:23)
[2017-08-31] MEDS: NICOTINE 14 MG/24 HOURS TOPICAL PATCH TD SCH (10:24)
[2017-08-31] MEDS: PRENATAL VITAMINS W/ FOLIC ACID TABLET (FP) PO SCH (10:24)
[2017-08-31] MEDS: SENNOSIDES 8.6MG TABLET (FP) PO SCH ×2 (10:24→21:35)
[2017-08-31] MEDS: THIAMINE HCL 100 MG TABLET (FP) PO SCH (21:34)
[2017-08-31] MEDS: traZODone HCL 50 MG TABLET (FP) PO SCH (21:34)
[2017-08-31] MEDS: DOCUSATE SODIUM 100 MG CAPSULE (FP) PO SCH (21:35)
[2017-09-01] MEDS ORDERED: METHADONE HCL 40 MG DISPERSABLE TABLET ONE (03:25)
[2017-09-01] MEDS ORDERED: METHADONE HCL 10 MG TABLET ONE (03:25)
[2017-09-01] MEDS: METHADONE 120 MG, METHADONE 20 MG PO SCH (06:03)
[2017-09-01] MEDS: NICOTINE POLACRILEX 4 MG GUM BUC PRN (06:04)
[2017-09-01] MEDS: GABAPENTIN 100 MG CAPSULE (FP) PO SCH ×3 (06:04→22:08)
[2017-09-01] MEDS: PRENATAL VITAMINS W/ FOLIC ACID TABLET (FP) PO SCH (10:30)
[2017-09-01] MEDS: SENNOSIDES 8.6MG TABLET (FP) PO SCH ×2 (10:30→22:08)
[2017-09-01] MEDS: ASPIRIN 81 MG CHEWABLE TABLETS PO SCH (10:30)
[2017-09-01] MEDS: BISACODYL 10 MG SUPP.RECT RC PRN (10:30)
[2017-09-01] MEDS: NICOTINE 14 MG/24 HOURS TOPICAL PATCH TD SCH (10:31)
[2017-09-01] MEDS: THIAMINE HCL 100 MG TABLET (FP) PO SCH (22:08)
[2017-09-01] MEDS: traZODone HCL 50 MG TABLET (FP) PO SCH (22:08)
[2017-09-01] MEDS: DOCUSATE SODIUM 100 MG CAPSULE (FP) PO SCH (22:08)
[2017-09-02] MEDS ORDERED: METHADONE HCL 10 MG TABLET ONE (03:26)
[2017-09-02] MEDS ORDERED: METHADONE HCL 40 MG DISPERSABLE TABLET ONE (03:26)
[2017-09-02] MEDS: METHADONE 120 MG, METHADONE 20 MG PO SCH (06:00)
[2017-09-02] MEDS: GABAPENTIN 100 MG CAPSULE (FP) PO SCH ×3 (06:01→21:44)
[2017-09-02] MEDS: NICOTINE POLACRILEX 4 MG GUM BUC PRN ×2 (06:01→10:09)
[2017-09-02] MEDS: PRENATAL VITAMINS W/ FOLIC ACID TABLET (FP) PO SCH (10:07)
[2017-09-02] MEDS: ASPIRIN 81 MG CHEWABLE TABLETS PO SCH (10:07)
[2017-09-02] MEDS: SENNOSIDES 8.6MG TABLET (FP) PO SCH ×2 (10:07→21:44)
[2017-09-02] MEDS: NICOTINE 14 MG/24 HOURS TOPICAL PATCH TD SCH (10:07)
[2017-09-02] MEDS ORDERED: traZODone HCL 50 MG TABLET (FP) PO SCH (15:07)
--- NOTE | 2017-09-02 15:08 | PN ---
[facility] Progress Note Note: patient reports he is unable to sleep and trazodone 50 mg po hs not effective, he reports no side-effects from medication, will increase to 100 mg po hs, continue monitor progress.
[2017-09-02] MEDS: THIAMINE HCL 100 MG TABLET (FP) PO SCH (21:43)
[2017-09-02] MEDS: traZODone HCL 100 MG TABLET (FP) PO SCH (21:43)
[2017-09-02] MEDS: DOCUSATE SODIUM 100 MG CAPSULE (FP) PO SCH (21:44)
[2017-09-03] MEDS ORDERED: METHADONE HCL 10 MG TABLET ONE (03:52)
[2017-09-03] MEDS ORDERED: METHADONE HCL 40 MG DISPERSABLE TABLET ONE (03:52)
[2017-09-03] MEDS: GABAPENTIN 100 MG CAPSULE (FP) PO SCH ×3 (06:08→21:43)
[2017-09-03] MEDS: NICOTINE POLACRILEX 4 MG GUM BUC PRN (06:08)
[2017-09-03] MEDS: METHADONE 120 MG, METHADONE 20 MG PO SCH (06:08)
[2017-09-03] MEDS: PRENATAL VITAMINS W/ FOLIC ACID TABLET (FP) PO SCH (10:11)
[2017-09-03] MEDS: ASPIRIN 81 MG CHEWABLE TABLETS PO SCH (10:11)
[2017-09-03] MEDS: NICOTINE 14 MG/24 HOURS TOPICAL PATCH TD SCH (10:11)
[2017-09-03] MEDS: SENNOSIDES 8.6MG TABLET (FP) PO SCH ×2 (10:11→21:43)
[2017-09-03] MEDS: BISACODYL 10 MG SUPP.RECT RC PRN (10:12)
[2017-09-03] MEDS: traZODone HCL 100 MG TABLET (FP) PO SCH (21:42)
[2017-09-03] MEDS: THIAMINE HCL 100 MG TABLET (FP) PO SCH (21:43)
[2017-09-03] MEDS: DOCUSATE SODIUM 100 MG CAPSULE (FP) PO SCH (21:43)
[2017-09-04] MEDS ORDERED: METHADONE HCL 10 MG TABLET ONE (05:22)
[2017-09-04] MEDS ORDERED: METHADONE HCL 40 MG DISPERSABLE TABLET ONE (05:22)
[2017-09-04] MEDS: METHADONE 120 MG, METHADONE 20 MG PO SCH (06:03)
[2017-09-04] MEDS: GABAPENTIN 100 MG CAPSULE (FP) PO SCH ×3 (06:04→21:44)
[2017-09-04] MEDS: SENNOSIDES 8.6MG TABLET (FP) PO SCH ×2 (10:13→21:43)
[2017-09-04] MEDS: ASPIRIN 81 MG CHEWABLE TABLETS PO SCH (10:13)
[2017-09-04] MEDS: PRENATAL VITAMINS W/ FOLIC ACID TABLET (FP) PO SCH (10:14)
[2017-09-04] MEDS: NICOTINE 14 MG/24 HOURS TOPICAL PATCH TD SCH (10:14)
[2017-09-04] MEDS: BISACODYL 10 MG SUPP.RECT RC PRN (10:14)
[2017-09-04] MEDS: NICOTINE POLACRILEX 4 MG GUM BUC PRN (10:15)
[2017-09-04] MEDS: traZODone HCL 100 MG TABLET (FP) PO SCH (21:43)
[2017-09-04] MEDS: DOCUSATE SODIUM 100 MG CAPSULE (FP) PO SCH (21:43)
[2017-09-04] MEDS: THIAMINE HCL 100 MG TABLET (FP) PO SCH (21:44)
[2017-09-05] MEDS ORDERED: METHADONE HCL 40 MG DISPERSABLE TABLET ONE (03:23)
[2017-09-05] MEDS ORDERED: METHADONE HCL 10 MG TABLET ONE (03:23)
[2017-09-05] MEDS: METHADONE 120 MG, METHADONE 20 MG PO SCH (06:04)
[2017-09-05] MEDS: GABAPENTIN 100 MG CAPSULE (FP) PO SCH (06:05)
[2017-09-05 07:05] VITALS: BP 151/90; PULSE 68; TEMP 97.8
[2017-09-05] MEDS: ASPIRIN 81 MG CHEWABLE TABLETS PO SCH (09:27)
[2017-09-05] MEDS: NICOTINE POLACRILEX 4 MG GUM BUC PRN (09:27)
[2017-09-05] MEDS: PRENATAL VITAMINS W/ FOLIC ACID TABLET (FP) PO SCH (09:27)
[2017-09-05] MEDS: NICOTINE 14 MG/24 HOURS TOPICAL PATCH TD SCH (09:27)
[2017-09-05] MEDS: SENNOSIDES 8.6MG TABLET (FP) PO SCH (09:27)
--- NOTE | 2017-09-05 10:01 | PN ---
Psychiatric Progress Note Vital Signs: Vital Signs Period Temp Pulse Resp BP Sys/Augustin Pulse Ox Last 24 Hr 97.8 F 68 18-18 151/90 Date of Session: 09/05/17 Chief Complaint:: discharge visit HPI: Patient has addressed sedative-hypnotic, nicotine dependence comorbid Insomnia and substance induced anxiety disorder. ROS: HTN, scoliosis, lower back pain, withdrawal seizures, hepatitis C and a history of splenectomy in 2004 and Thyroidectomy in 2017 medically managed. Current Medications: Active Medications Generic Name Dose Route Start Last Admin Trade Name Freq PRN Reason Stop Dose Admin Acetaminophen 650 mg 08/08/17 22:40 Tylenol - PO Q4H PRN FEVER Al Hydroxide/Mg Hydroxide 30 ml 08/08/17 22:40 Mylanta Oral Suspension - PO Q6H PRN DYSPEPSIA Aspirin 81 mg 08/09/17 10:00 09/05/17 09:27 Asa - PO 81 mg DAILY HEATHER Administration Bisacodyl 10 mg 08/22/17 13:36 09/04/17 10:14 Dulcolax Suppository - RC 10 mg DAILY PRN Administration CONSTIPATION Docusate Sodium 300 mg 08/10/17 22:00 09/04/17 21:43 Colace - PO 300 mg HS HEATHER Administration Eucalyptus/Menthol/Phenol/Sorbitol 1 each 08/08/17 22:40 Cepastat Lozenge - MM Q4H PRN SORE THROAT Gabapentin 100 mg 08/08/17 22:45 09/05/17 06:05 Neurontin - PO Not Given TID HEATHER Guaifenesin 10 ml 08/08/17 22:40 Robitussin Dm - PO Q6H PRN COUGH Ibuprofen 400 mg 08/08/17 22:40 Motrin - PO Q6H PRN Pain level 4-6 Lactulose 20 gm 08/16/17 15:48 08/19/17 10:26 Cephulac (Oral Use) PO 20 gm QID PRN Administration CONSTIPATION Loperamide HCl 4 mg 08/08/17 22:40 Imodium - PO Q6H PRN DIARRHEA Magnesium Hydroxide 30 ml 08/08/17 22:40 08/13/17 22:01 Milk Of Magnesia - PO 30 ml DAILY PRN Administration CONSTIPATION Melatonin 5 mg 08/08/17 22:00 Melatonin PO HS PRN INSOMNIA Methadone HCl 120 mg/ 140 mg 08/31/17 06:00 09/05/17 06:04 Methadone HCl 20 mg PO 09/07/17 05:59 140 mg DAILY@0600 HEATHER Administration Nicotine 14 mg 08/09/17 10:00 09/05/17 09:27 Nicoderm Patch - TD Not Given DAILY HEATHER Nicotine Polacrilex 4 mg 08/15/17 10:27 09/05/17 09:27 Nicorette Gum - BUC 4 mg Q2H PRN Administration NICOTINE REPLACEMENT RX Multivit/Folic Acid/Iron 1 tab 08/09/17 10:00 09/05/17 09:27 Vitamins (Sjr) - PO Not Given DAILY HEATHER Pseudoephedrine/Triprolidine 1 combo 08/08/17 22:40 Actifed - PO TID PRN NASAL CONGESTION Senna 1 tab 08/16/17 22:00 09/05/17 09:27 Senna - PO 1 tab BID HEATHER Administration Thiamine HCl 100 mg 08/09/17 22:00 09/04/17 21:44 Vitamin B1 - PO 100 mg HS HEATHER Administration Trazodone HCl 100 mg 09/02/17 22:00 09/04/17 21:43 Desyrel - PO 100 mg HS HEATHER Administration Current Side Effect: No Lab tests ordered: No Lab tests reviewed: Yes Provider note:: Patient has completed this program and met his treatment goals and will continue to address his issues at [facility]. He focuses on recognition of negative consequences relapse would have over major life areas, including physical and mental health. He has been responding well to current medications, maintaining stable mood. Reviewed indications,(Trazodone and Gabapentin) properties of each medication; patient indicates understanding importance of taking medications as prescribed and scheduling/keeping followup appointments. Scripts x 30 days provided. Patient appears stable for discharge today. Total face to face time:: 30 Mental Status Exam - Mental Status Exam Alert and Oriented to: Time, Place, Person Cognitive Function: Good Patient Appearance: Well Groomed Mood: Hopeful Affect: Appropriate, Mood Congruent Patient Behavior: Appropriate, Cooperative Speech Pattern: Clear, Appropriate Voice Loudness: Normal Thought Process: Intact, Goal Oriented Thought Disorder: Not Present Hallucinations: Denies Suicidal Ideation: Denies Homicidal Ideation: Denies Insight/Judgement: Fair Sleep: Fair Appetite: Fair Muscle strength/Tone: Normal Gait/Station: Normal Psychiatric Treatment Plan - Problem List (1) Nicotine dependence Current Visit: Yes Qualifiers: Nicotine product type: cigarettes (2) Sedative hypnotic or anxiolytic dependence Current Visit: Yes (3) Substance-induced anxiety disorder Current Visit: No (4) Insomnia Current Visit: No
== END 2017-09-05 11:00 | disposition home or self-care (01) | DRG 772 ==
LOC: YASAS 18:35 → Y5N 22:08
PROVIDERS: ADMIT Psychiatry & Neurology Psychiatry; ATTEND Psychiatry & Neurology Psychiatry
PROC: HZ42ZZZ Group Counseling for Substance Abuse Treatment, Cognitive-Behavioral (ICD-10-PCS; principal; 2017-08-08)
DX: F13.20 Sedative, hypnotic or anxiolytic dependence, uncomplicated (principal); F17.210 Nicotine dependence, cigarettes, uncomplicated; F19.24 Other psychoactive substance dependence with psychoactive substance-induced mood disorder; F99 Mental disorder, not otherwise specified; G47.00 Insomnia, unspecified; I10 Essential (primary) hypertension; G57.03 Lesion of sciatic nerve, bilateral lower limbs; B18.2 Chronic viral hepatitis C; M54.5 Low back pain; M40.209 Unspecified kyphosis, site unspecified; R26.2 Difficulty in walking, not elsewhere classified; R63.4 Abnormal weight loss; Z68.25 Body mass index [BMI] 25.0-25.9, adult; Z86.718 Personal history of other venous thrombosis and embolism; Z87.442 Personal history of urinary calculi; Z88.8 Allergy status to other drugs, medicaments and biological substances; Z90.81 Acquired absence of spleen; E89.0 Postprocedural hypothyroidism
CPT/HCPCS: 36415; 71046-TC-FY; 80053; 81003; 81015; 82962; 85027; 86593; 93005; 93010